=== PATIENT | female | born 1950 | race Caucasian/White ===

== ENCOUNTER 2017-11-10 03:58 | Inpatient (IN) | payer MEDICARE, BC, OTHER ==
[~2017-11-10] VITALS: Ht 170.2 cm; Wt 90.0 kg
[2017-11-10] VITALS (14 sets, daily range): BP systolic 100–132; BP diastolic 57–71; PULSE 83–172; RESP 18–24; TEMP 98.2–98.8; O2SAT 92–98
[2017-11-10] MEDS ORDERED: ADENOSINE IV SOLN 3 MG/ML 2 ML VIAL ONE (04:13)
[2017-11-10] MEDS ORDERED: ADENOSINE IV SOLN 3 MG/ML 2 ML VIAL IV PUSH ONE ×2 (04:15→04:30)
[2017-11-10] MEDS ORDERED: SODIUM CHLORIDE 0.9% FLUSH 10 ML FLUSH IV FLUSH PRN (04:15)
[2017-11-10] MEDS ORDERED: SODIUM CHLORID 0.9% 500 ML INJ 500 ML IV ONE ×2 (04:15→05:15)
[2017-11-10] MEDS ORDERED: METOPROLOL TARTRATE 5 MG/5 ML VIAL IV PUSH ONE ×2 (04:30→05:00)
--- NOTE | 2017-11-10 04:46 | PD ---
HPI Chief Complaint: Abdominal Pain Time Seen by Provider: 04:12 Travel History International Travel<30 days: No Contact w/Intl Traveler<30days: No Traveled to known affect area: No History of Present Illness HPI 67-year-old female presents to the emergency department by EMS transport from her long-term [facility] where she has been a resident since 03/02/17 for complaint of abdominal pain and identified to be hypotensive. Patient was also identified to be in an SVT with a rate sustained of 174-175. Patient has prior history of atrial fibrillation is currently on no anticoagulation. Patient recently started on antibiotic yesterday for chest x-ray which showed cardiomegaly with isolated right lower lobe infiltrate. Patient reports she thinks she might of had dark stool. Patient has had no fever. Patient positive tobacco use positive anemia atrial fibrillation chronic back pain COPD GERD gastric bypass headache hip replacement hypertension episodes of hypoxia migraine spinal stenosis bilateral lower extremity lower leg cellulitis muscle weakness bedbound and DNR. Patient reportedly received a DuoNeb at 3:10. Patient is unable to identify exacerbating or alleviating factors. PFSH Past Medical History Narrative Medical anemia depression sleep apnea spinal stenosis urinary incontinence atrial fibrillation chronic back pain COPD GERD gastric bypass headache hip replacement hypertension episodes of hypoxia migraine spinal stenosis bilateral lower extremity lower leg cellulitis muscle weakness bedbound knee surgery; tobacco use; nursing notes reviewed Social History Tobacco Use: Yes Allergies-Medications (Allergen,Severity, Reaction): Coded Allergies: Sulfa (Sulfonamide Antibiotics) (Verified Allergy, Unknown, 11/10/17) codeine (Verified Allergy, Unknown, 11/10/17) tetanus toxoid, adsorbed (Verified Allergy, Unknown, 11/10/17) Uncoded Allergies: vancomy (Allergy, Unknown, 11/10/17) Reported Meds & Prescriptions Reported Meds & Active Scripts Active Reported Fioricet (Dovbqeqsxa-Rqqseitdcybyi-Iwmcfqko) 50-300-40 Mg Cap 1 Cap PO Q4H PRN Oxycodone-Acetaminophen 5-325 mg Tab 1 Tab PO Q4H PRN Albuterol Neb (Albuterol Sulfate) 0.63 Mg/3 Ml Neb 0.63 Mg NEB Q4HR NEB PRN One Daily-Minerals (Multiple Vitamins W/ Minerals) 1 Tab 1 Tab PO DAILY Flexeril (Cyclobenzaprine HCl) 10 Mg Tab 10 Mg PO TID Review of Systems Except as stated in HPI: all other systems reviewed are Neg General / Constitutional: No: Fever HENT: No: Congestion Cardiovascular: Positive: Chest Pain or Discomfort, Palpitations, Tachycardia Respiratory: Positive: Shortness of Breath Gastrointestinal: Positive: Abdominal Pain, No: Nausea, Vomiting, Diarrhea Genitourinary: No: Dysuria Musculoskeletal: Positive: Myalgias, Arthralgias, No: Edema Skin: No Rash Neurologic: Positive: Weakness, No: Dizziness, Syncope, Focal Abnormalities, Coordination Problem Psychiatric: No: Anxiety Endocrine: No: Heat Intolerance Hematologic/Lymphatic: No: Easy Bruising Physical Exam Narrative GENERAL: Well-developed morbidly obese female laying supine on exam stretcher in no acute respiratory distress on supplemental oxygen 2 L/min nasal cannula O2 saturation 98% SKIN: Cool and dry. Pannus erythema with satellite erythematous macular papular rash and excoriation HEAD: Normocephalic. EYES: No scleral icterus. No injection or drainage. NECK: Supple, trachea midline. No JVD or lymphadenopathy. CARDIOVASCULAR: Increased regular rate and rhythm without murmurs, gallops, or rubs. RESPIRATORY: Breath sounds equal bilaterally. No accessory muscle use. GASTROINTESTINAL: Abdomen soft, non-tender except left lower quadrant, nondistended. MUSCULOSKELETAL: No cyanosis, or edema. BACK: Nontender without obvious deformity. No CVA tenderness. Data Data Last Documented VS Vital Signs Date Time Temp Pulse Resp B/P (MAP) Pulse Ox O2 Delivery O2 Flow Rate FiO2 11/10/17 05:57 122 19 103/70 (81) 92 Nasal Cannula 3.00 11/10/17 04:01 98.2 Orders Orders Adenosine Inj (Adenocard Inj) (11/10/17 04:13) Complete Blood Count With Diff (11/10/17 04:12) Comprehensive Metabolic Panel (11/10/17 04:12) Lipase (11/10/17 04:12) Prothrombin Time / Inr (Pt) (11/10/17 04:12) Act Partial Throm Time (Ptt) (11/10/17 04:12) Urinalysis - C+S If Indicated (11/10/17 04:12) Ct Abd/Pel W Iv Contrast(Rout) (11/10/17 04:12) Iv Access Insert/Monitor (11/10/17 04:12) Ecg Monitoring (11/10/17 04:12) Oximetry (11/10/17 04:12) Sodium Chloride 0.9% Flush (Ns Flush) (11/10/17 04:15) Electrocardiogram (11/10/17 04:12) Chest, Single Ap (11/10/17 04:12) Sodium Chlorid 0.9% 500 Ml Inj (Ns 500 M (11/10/17 04:15) Adenosine Inj (Adenocard Inj) (11/10/17 04:15) Magnesium (Mg) (11/10/17 04:12) Troponin I (11/10/17 04:12) Ckmb (Isoenzyme) Profile (11/10/17 04:12) Lactic Acid Sepsis Protocol (11/10/17 04:12) Blood Culture (11/10/17 04:12) Type And Screen (11/10/17 04:12) Urinary Catheter Insert/Apply (11/10/17 04:12) Adenosine Inj (Adenocard Inj) (11/10/17 04:30) Metoprolol Tartrate Inj (Lopressor Inj) (11/10/17 04:30) Metoprolol Tartrate Inj (Lopressor Inj) (11/10/17 05:00) Piperacil-Tazo 4.5 Gm Premix (Zosyn 4.5 (11/10/17 05:15) Sodium Chlorid 0.9% 500 Ml Inj (Ns 500 M (11/10/17 05:15) Ct Pulmonary Angiogram (11/10/17 ) Digoxin Inj (Lanoxin Inj) (11/10/17 05:30) Urine Culture (11/10/17 04:50) Admit Order (Ed Use Only) (11/10/17 ) Gyroscope Technician / Telemetry DANITZA.Q8H (11/10/17 05:53) Diet Npo (11/10/17 Breakfast) Activity Bed Rest (11/10/17 05:53) Notify Dr: Other (11/10/17 05:53) Iohexol 350 Inj (Omnipaque 350 Inj) (11/10/17 05:55) Labs Laboratory Tests Test 11/10/17 04:28 11/10/17 04:30 11/10/17 04:50 White Blood Count 4.5 TH/MM3 Red Blood Count 4.58 MIL/MM3 Hemoglobin 13.7 GM/DL Hematocrit 43.6 % Mean Corpuscular Volume 95.2 FL Mean Corpuscular Hemoglobin 30.0 PG Mean Corpuscular Hemoglobin Concent 31.5 % Red Cell Distribution Width 21.4 % Platelet Count 122 TH/MM3 Mean Platelet Volume 9.8 FL Neutrophils (%) (Auto) 75.3 % Lymphocytes (%) (Auto) 15.3 % Monocytes (%) (Auto) 8.6 % Eosinophils (%) (Auto) 0.2 % Basophils (%) (Auto) 0.6 % Neutrophils # (Auto) 3.4 TH/MM3 Lymphocytes # (Auto) 0.7 TH/MM3 Monocytes # (Auto) 0.4 TH/MM3 Eosinophils # (Auto) 0.0 TH/MM3 Basophils # (Auto) 0.0 TH/MM3 CBC Comment DIFF FINAL Differential Comment Prothrombin Time 10.8 SEC Prothromb Time International Ratio 1.1 RATIO Activated Partial Thromboplast Time 26.7 SEC Blood Urea Nitrogen 25 MG/DL Creatinine 0.47 MG/DL Random Glucose 93 MG/DL Total Protein 6.6 GM/DL Albumin 1.9 GM/DL Calcium Level 8.9 MG/DL Magnesium Level 1.8 MG/DL Alkaline Phosphatase 137 U/L Aspartate Amino Transf (AST/SGOT) 23 U/L Alanine Aminotransferase (ALT/SGPT) 24 U/L Total Bilirubin 0.7 MG/DL Sodium Level 144 MEQ/L Potassium Level 4.6 MEQ/L Chloride Level 102 MEQ/L Carbon Dioxide Level 35.0 MEQ/L Anion Gap 7 MEQ/L Estimat Glomerular Filtration Rate 131 ML/MIN Total Creatine Kinase 35 U/L Troponin I LESS THAN 0.02 NG/ML Lipase 26 U/L Lactic Acid Level 1.3 mmol/L Urine Color YELLOW Urine Turbidity HAZY Urine pH 7.0 Urine Specific [place] 1.026 Urine Protein 100 mg/dL Urine Glucose (UA) NEG mg/dL Urine Ketones 10 mg/dL Urine Occult Blood MOD Urine Nitrite POS Urine Bilirubin NEG Urine Urobilinogen 4.0 MG/DL Urine Leukocyte Esterase LARGE Urine RBC 70 /hpf Urine WBC /hpf Urine WBC Clumps RARE Urine Squamous Epithelial Cells <1 /hpf Urine Transitional Epithelial Cells 1 /hpf Urine Renal Epithelial Cells 1 /hpf Urine Bacteria MANY /hpf Urine Hyaline Casts 7 /lpf Urine Mucus FEW /lpf Microscopic Urinalysis Comment CATH-CULTURE IND MDM Medical Decision Making Medical Screen Exam Complete: Yes Emergency Medical Condition: Yes Medical Record Reviewed: Yes Interpretation(s) EKG: SVT rate 173 intraventricular conduction delay no acute ST elevation or injury pattern noted During Adenocard administration patient went into atrial flutter with variable block Urinalysis: Innumerable white blood cells many bacteria positive nitrites positive leukocyte esterase positive blood; cath specimen culture indicated patient is already received Zosyn 4.5 g IV piggyback 1 dose Lactic acid 1.3, not elevated Last Impressions Chest X-Ray 11/10/17 0412 Signed Impressions: CONCLUSION: Cardiomegaly with mild basilar airspace disease, most characteristic of atelect asis. CBC & BMP Diagram 11/10/17 04:28 Total Protein 6.6, Albumin 1.9 L, Calcium Level 8.9, Magnesium Level 1.8, Alkaline Phosphatase 137 H, Aspartate Amino Transf (AST/SGOT) 23, Alanine Aminotransferase (ALT/SGPT) 24, Total Bilirubin 0.7 Vital Signs Date Time Temp Pulse Resp B/P (MAP) Pulse Ox O2 Delivery O2 Flow Rate FiO2 11/10/17 05:01 93 Nasal Cannula 3.00 11/10/17 04:59 137 19 132/66 (88) 98 Nasal Cannula 3.00 11/10/17 04:01 98.2 172 20 119/65 (83) Differential Diagnosis SVT a flutter with 2-1 block sepsis ACS SD CHF COPD ischemic bowel ischemic colitis anemia UTI tinea cruris venous stasis disease PE Narrative Course Patient placed on hall monitor with continuous pulse oximetry and supplemental oxygen IV access obtained patient identified to be in SVT with regular rate of 173 narrow complex, suspicious for atrial flutter with 2-1 block however unresponsive to vagal maneuvers and subsequently administered Adenocard to determine underlying rhythm 6 mg Adenocard rapid push was no variation in rate 12 mg Adenocard rapid flow showed patient to be an atrial flutter with return of rate to 173 maintaining blood pressure 106 systolic patient given beta-ana metoprolol 5 mg IV slow push currently takes Coreg daily. If patient should drop her pressure may require rate control through cardioversion. Cardiac enzymes CK total troponin I are not elevated At 5:25 AM long-term identifies acute change tonight was saturations dropped to 65% patient was given updraft treatment and was noted to be hypotensive. Upon EMS arrival was identified she was also an narrow complex tachycardia. Patient received 500 cc bolus in route from the long-term via EMS. Upon patient's arrival she received an additional 500 cc bolus of normal saline received 6 mg and 12 mg of Adenocard which identified her to be an a flutter with variable rate. After words she received a one-time dose of Lopressor 5 mg IV which slowed her rate to 119-130 initially was able to tolerate her pressure but it did trend downward therefore additional 500 cc bolus was administered digoxin 0.25 mg IV was administered an additional dose of Lopressor 5 mg at 2.5 mg increments was ordered and administered. Due to information from nursing patient's O2 saturation on 2 L dropped to 65% with patient being bedridden and morbidly obese with minimal activity CT pulmonary angiogram has been ordered as well as CT abdomen and pelvis. Critical Care Narrative Aggregate critical care time was 40 minutes. Time to perform other separately billable procedures was not included in the critical care time. My time did not include minutes spent treating any other patients simultaneously or on activities that did not directly contribute to the patient's treatment. The services I provided to this patient were to treat and/or prevent clinically significant deterioration that could result in: Arrhythmia, septic shock, I provided critical care services requiring my management, as noted below: Chart data review, documentation time, medication orders and management, vital sign assessments/reviewing monitor data, ordering and reviewing lab tests, ordering and interpreting/reviewing x-rays and diagnostic studies, care of the patient and discussion of the patient with the admitting physicians. Physician Communication Physician Communication call placed to Dr Huber for admission --admit to ICU with motorcycle service technician consult --discussed with Dr Wright --- will see in the ICU Diagnosis Primary Impression: Atrial flutter with rapid ventricular response Additional Impressions: UTI (urinary tract infection) History of COPD History of congestive heart failure Admitting Information Admitting Physician Requests: Admit Angie Nicholas MD Nov 10, 2017 04:46
--- NOTE | 2017-11-10 04:51 | RADRPT ---
EXAM DATE: 11/10/2017 4:47 AM EDT AGE/SEX: 67 years / Female INDICATIONS: Shortness of breath. CLINICAL DATA: This is the patient's initial encounter. Patient reports that signs and symptoms have been present for 1 day and indicates a pain score of Nonresponsive. MEDICAL/SURGICAL HISTORY: . Unobtainable. . Unobtainable. COMPARISON: No prior exams available for comparison. FINDINGS: There is cardiomegaly. Mild basilar airspace disease which may represent atelectasis. No significant effusion. No pneumothorax. CONCLUSION: Cardiomegaly with mild basilar airspace disease, most characteristic of atelectasis. Electronically signed by: Ced Cason MD 11/10/2017 4:49 AM EDT
[2017-11-10 04:52] LABS: AUTOMATED NEUTROPHIL # 3.4 TH/MM3 (1.8-7.7); BASOPHIL % 0.6 % (0.0-2.0); EOSINOPHIL % 0.2 % (0.0-4.0); HEMATOCRIT 43.6 % (35.0-46.0); HEMOGLOBIN 13.7 GM/DL (11.6-15.3); LYMPH % 15.3 % (9.0-44.0); LYMPHOCYTE # 0.7 TH/MM3 (1.0-4.8); MEAN CELL VOLUME 95.2 FL (80.0-100.0); MEAN CORPUSCULAR HGB CONC 31.5 % (32.0-36.0); MEAN PLATELET VOLUME 9.8 FL (7.0-11.0); MONO % 8.6 % (0.0-8.0); MONOCYTE # 0.4 TH/MM3 (0-0.9); NEUT % 75.3 % (16.0-70.0); PLATELET COUNT 122 TH/MM3 (150-450); RED BLOOD COUNT 4.58 MIL/MM3 (4.00-5.30); RED CELL DISTRIBUTION WIDTH 21.4 % (11.6-17.2); WHITE BLOOD COUNT 4.5 TH/MM3 (4.0-11.0)
[2017-11-10 05:03] LABS: INTERNATIONAL NORMALIZED RATIO 1.1 RATIO; PROTHROMBIN TIME - PATIENT 10.8 SEC (9.8-11.6)
[2017-11-10 05:10] LABS: ALBUMIN 1.9 GM/DL (3.4-5.0); ALT (GPT) 24 U/L (10-53); AST (GOT) 23 U/L (15-37); BLOOD UREA NITROGEN 25 MG/DL (7-18); CALCIUM 8.9 MG/DL (8.5-10.1); CHLORIDE 102 MEQ/L (98-107); CREATININE 0.47 MG/DL (0.50-1.00); GLOMERULAR FILTRATION RATE 131 ML/MIN (>89); GLUCOSE,RANDOM 93 MG/DL (74-106); MAGNESIUM 1.8 MG/DL (1.5-2.5); SODIUM (NA) 144 MEQ/L (136-145)
[2017-11-10 05:15] LABS: ALKALINE PHOSPHATASE 137 U/L (45-117); TOTAL BILIRUBIN ADULT 0.7 MG/DL (0.2-1.0); TOTAL PROTEIN 6.6 GM/DL (6.4-8.2); TROPONIN I LESS THAN 0.02 NG/ML (0.02-0.05)
[2017-11-10] MEDS ORDERED: PIPERACIL-TAZO 4.5 GM PREMIX 100 ML IV ONE (05:15)
[2017-11-10 05:24] LABS: BACTERIA, URINE MANY /hpf; BILIRUBIN, URINE NEG (NEG); BLOOD, URINE MOD (NEG); GLUCOSE,URINE NEG (NEG); HYALINE CAST, URINE 7 /lpf (RARE); KETONE, URINE 10 mg/dL (NEG); MUCUS URINE FEW /lpf (OCC); NITRITE,URINE POS (NEG); RENAL EPITHELIAL CELLS 1 /hpf; SQUAMOUS EPITHELIAL CELL URINE <1 /hpf (0-5); TRANSITIONAL EPI CELLS, URINE 1 /hpf; URINE COLOR YELLOW (YELLW/STRAW); URINE LEUKOCYTE ESTERASE LARGE (NEG); WHITE BLOOD CELL CLUMPS RARE
[2017-11-10] MEDS ORDERED: DIGOXIN 0.5 MG/2 ML VIAL IV PUSH ONE ×2 (05:30→08:30)
[2017-11-10] MEDS ORDERED: CYCL10TA PO (05:39)
[2017-11-10] MEDS ORDERED: ONETAB22 PO (05:40)
[2017-11-10] MEDS ORDERED: ALBU0.63 NEB (05:40)
[2017-11-10] MEDS ORDERED: OXYC1TAB63 PO (05:41)
[2017-11-10] MEDS ORDERED: BUTA1CAP PO (05:41)
[2017-11-10] MEDS ORDERED: IOHEXOL 350 MG/ML 10 ML VIAL (for RAD DIAG) IVCONTRAST ONE (05:55)
--- NOTE | 2017-11-10 06:08 | RADRPT ---
EXAM DATE: 11/10/2017 5:52 AM EDT AGE/SEX: 67 years / Female INDICATIONS: Shortness of breath, tachycardia. CLINICAL DATA: This is the patient's initial encounter. Patient reports that signs and symptoms have been present for 1 day and indicates a pain score of 0/10. MEDICAL/SURGICAL HISTORY: Congestive heart failure. Chronic obstructive pulmonary disease. Gastric bypass. RADIATION DOSE: 8.77 CTDI (mGy) COMPARISON: No prior exams available for comparison. TECHNIQUE: Volumetric scanning was performed using a multi-row detector CT scanner during bolus infu arcelia of 100 ml Omnipaque 350 (iohexol) nonionic water-soluble contrast as a cumulative dose for mult iple exams. The data was post processed with a variety of visualization algorithms including full vol ume maximum intensity projection and sliding thin slab reformation. Using automated exposure control and adjustment of the mA and/or kV according to patient size, radiation dose was kept as low as reas onably achievable to obtain optimal diagnostic quality images. FINDINGS: No filling defects to suggest pulmonary embolus. There is subsegmental basilar airspace disease with small left effusion. Cardiomegaly. Pericardial effusion measuring up to about 2.8 cm in thickness on the left side posteriorly. No pneumothorax. Moderate emphysema in the upper lungs, centrilobular. Bor derline enlarged mediastinal lymph nodes. See abdomen CT for findings below the diaphragm. CONCLUSION: 1. Negative for pulmonary embolus. 2. Moderate sized pericardial effusion and small left effusion. 3. Subsegmental basilar airspace disease. Electronically signed by: Ced Cason MD 11/10/2017 6:06 AM EDT
--- NOTE | 2017-11-10 06:12 | RADRPT ---
EXAM DATE: 11/10/2017 5:54 AM EDT AGE/SEX: 67 years / Female INDICATIONS: Abdominal pain, blood in stool. CLINICAL DATA: This is the patient's initial encounter. Patient reports that signs and symptoms have been present for 1 day and indicates a pain score of 5/10. MEDICAL/SURGICAL HISTORY: Congestive heart failure. Chronic obstructive pulmonary disease. Ga stroesophageal reflux disease. Gastric bypass. Left hip replacement. ORAL CONTRAST: No oral contrast ingested. RADIATION DOSE: 18.73 CTDI (mGy) COMPARISON: No prior exams available for comparison. TECHNIQUE: Multiple contiguous axial images were obtained through the abdomen and pelvis following b olus infusion of 100 ml Omnipaque 350 (iohexol) nonionic water-soluble contrast as a cumulative dos e for multiple exams. No oral contrast ingested. Using automated exposure control and adjustment of the mA and/or kV according to patient size, the radiation dose was kept as low as reasonably achievab le to obtain optimal diagnostic quality images. FINDINGS: Moderate sized pericardial effusion present with small left effusion and subsegmental airspace diseas e at the lung bases. There is moderate anasarca. Mild fatty liver. Spleen, adrenals, kidneys and pancreas demonstrate no acute findings. Multiple smal l gallstones in the gallbladder without biliary ductal dilatation. No significant free fluid. No bowel obstruction. No free air. Previous left hip replacement. Mild con stipation. Advanced degenerative change in the lumbar spine with a mild levoscoliosis. CONCLUSION: 1. Moderate pericardial effusion and small left effusion with subsegmental basilar airspace disease. 2. Moderate anasarca. 3. Postoperative gastric bypass surgery and left hip replacement. 4. Multiple small gallstones. 5. Mild constipation. No bowel obstruction. Electronically signed by: Ced Cason MD 11/10/2017 6:10 AM EDT
[2017-11-10] MEDS ORDERED: LOTR15T TOPICAL (06:17)
[2017-11-10] MEDS ORDERED: OXYC1TAB36 PO (06:17)
[2017-11-10] MEDS ORDERED: ASPI1TAB93 (06:17)
[2017-11-10] MEDS ORDERED: VENTAER INH ×2 (06:18→06:22)
[2017-11-10] MEDS ORDERED: RESP: ALBUTEROL 0.63 MG/3 ML NEB (PRN) NEB (06:45)
--- NOTE | 2017-11-10 09:33 | ECHRPT ---
Indication: MOD CORY EFF BORDERLINE BP CONCLUSIONS The left ventricle is not well visualized. Normal left ventricular size. Mild concentric left ventricular hypertrophy. The left ventricular systolic function is mildly reduced with an estimated ejection fraction in the range of 45- 50%. The right atrial size is mildly dilated. The interatrial septum not well visualized. The aortic root and proximal ascending aorta are not well visualized. The mitral valve is not well visualized. Trace mitral valve regurgitation. No mitral valve stenosis. Aortic valve sclerosis is present. No aortic valve regurgitation. No aortic valve stenosis. There is trace tricuspid valve regurgitation. The estimated pulmonary arterial pressure is 47 mmHg. Trivial pulmonary valve regurgitation. There is a ipwbr-ci-caxsmray sized posterior and lateral, partially loculated pericardial effusion p resent. A small left sided pleural effusion is noted. No hemodynamically significant echocardiographic features were observed (no pre-tamponade physiology). BP: / HR: Rhythm: MEASUREMENTS (Male / Female) Normal Values Technical Quality: 2D ECHO LV Diastolic Diameter PLAX 4.7 cm 4.2 - 5.9 / 3.9 - 5.3 cm LV Systolic Diameter PLAX 3.9 cm IVS Diastolic Thickness 1.5 cm 0.6 - 1.0 / 0.6 - 0.9 cm LVPW Diastolic Thickness 1.0 cm 0.6 - 1.0 / 0.6 - 0.9 cm LV Relative Wall Thickness 0.5 DOPPLER AV Peak Velocity 269.0 cm/s AV Peak Gradient 28.9 mmHg LVOT Peak Velocity 108.0 cm/s LVOT Peak Gradient 4.7 mmHg Mitral E Point Velocity 134.0 cm/s TR Peak Velocity 324.0 cm/s TR Peak Gradient 42.0 mmHg FINDINGS LEFT VENTRICLE The left ventricle is not well visualized. Normal left ventricular size. Mild concentric left ventricular hypertrophy. The left ventricular systolic function is mildly reduced with an estimated ejection fraction in the range of 45- 50%. RIGHT VENTRICLE Normal right ventricular size and systolic function. LEFT ATRIUM The left atrial size is normal. RIGHT ATRIUM The right atrial size is mildly dilated. ATRIAL SEPTUM Normal atrial septal thickness without atrial level shunting by limited color doppler interrogation. The interatrial septum not well visualized. AORTA The aortic root and proximal ascending aorta are normal in size on limited imaging. The aortic root and proximal ascending aorta are not well visualized. MITRAL VALVE The mitral valve is not well visualized. Structurally normal mitral valve. Trace mitral valve regurgitation. No mitral valve stenosis. AORTIC VALVE Trileaflet aortic valve. Aortic valve sclerosis is present. No aortic valve regurgitation. No aortic valve stenosis. TRICUSPID VALVE There is trace tricuspid valve regurgitation. The estimated pulmonary arterial pressure is 47 mmHg. PULMONARY VALVE Trivial pulmonary valve regurgitation. VESSELS The inferior vena cava is normal in size. PERICARDIUM There is a [id number] sized posterior and lateral, partially loculated pericardial effusion p resent. A small left sided pleural effusion is noted. No hemodynamically significant echocardiographic features were observed (no pre-tamponade physiology). Elliot Bella MD, FACC (Electronically Signed) Final Date:10 November 2017 09:31
--- NOTE | 2017-11-10 13:39 | PD.CONS ---
[facility] Service Critical Care Medicine Consult Requested By Primary Care Physician Steff Milan DO History of Present Illness 67-year-old female presents to the emergency department by EMS transport from her half-way [facility] where she has been a resident since 03/02/17 for complaint of abdominal pain and identified to be hypotensive. Patient was also identified to be in an SVT with a rate sustained of 174-175. Patient has prior history of atrial fibrillation is currently on no anticoagulation. Patient recently started on antibiotic yesterday for chest x-ray which showed cardiomegaly with isolated right lower lobe infiltrate. Patient reports she thinks she might of had dark stool. Patient has had no fever. Patient positive tobacco use positive anemia atrial fibrillation chronic back pain COPD GERD gastric bypass headache hip replacement hypertension episodes of hypoxia migraine spinal stenosis bilateral lower extremity lower leg cellulitis muscle weakness bedbound and DNR. Patient reportedly received a DuoNeb at 3:10. Patient is unable to identify exacerbating or alleviating factors. In the ER she was noted to have a flutter with borderline blood pressure. She received IV Lopressor as well as 1.5 L normal saline bolus. Patient was admitted to the ICU by Dr. Huber and critical care consult was requested. CT chest done in the ER showed a moderate pericardial effusion and ascites. I ordered a stat 2D echo which I reviewed personally while it was being done. No tamponade physiology observed with good contractility of RV and LV. Cardiology consult requested for further evaluation for arrhythmia and pericardial effusion. At the time of my evaluation patient had minimal shortness of breath though she stated she was already feeling better. She denied any chest pain abdominal pain nausea vomiting diarrhea melena or rectal bleeding. She reiterated that she did not want intubation or CPR if she worsened clinically. She stated that in case she was not able to make her own decisions her brother would be making healthcare decisions. PFSH Past Medical History Narrative Medical anemia depression sleep apnea spinal stenosis urinary incontinence atrial fibrillation chronic back pain COPD GERD gastric bypass headache hip replacement hypertension episodes of hypoxia migraine spinal stenosis bilateral lower extremity lower leg cellulitis muscle weakness bedbound knee surgery; tobacco use; nursing notes reviewed Social History Tobacco Use: Yes Allergies-Medications (Allergen,Severity, Reaction): Coded Allergies: Sulfa (Sulfonamide Antibiotics) (Verified Allergy, Unknown, 11/10/17) codeine (Verified Allergy, Unknown, 11/10/17) tetanus toxoid, adsorbed (Verified Allergy, Unknown, 11/10/17) Uncoded Allergies: vancomy (Allergy, Unknown, 11/10/17) Reported Meds & Prescriptions Reported Meds & Active Scripts Active Reported Fioricet (Gsurtzzzii-Brbfpuuesxjxa-Jqcasbru) 50-300-40 Mg Cap 1 Cap PO Q4H PRN Oxycodone-Acetaminophen 5-325 mg Tab 1 Tab PO Q4H PRN Albuterol Neb (Albuterol Sulfate) 0.63 Mg/3 Ml Neb 0.63 Mg NEB Q4HR NEB PRN One Daily-Minerals (Multiple Vitamins W/ Minerals) 1 Tab 1 Tab PO DAILY Flexeril (Cyclobenzaprine HCl) 10 Mg Tab 10 Mg PO TID Review of Systems Except as stated in HPI: all other systems reviewed are Neg General / Constitutional: No: Fever HENT: No: Congestion Cardiovascular: Positive: Chest Pain or Discomfort, Palpitations, Tachycardia Respiratory: Positive: Shortness of Breath Gastrointestinal: Positive: Abdominal Pain, No: Nausea, Vomiting, Diarrhea Genitourinary: No: Dysuria Musculoskeletal: Positive: Myalgias, Arthralgias, No: Edema Skin: No Rash Neurologic: Positive: Weakness, No: Dizziness, Syncope, Focal Abnormalities, Coordination Problem Psychiatric: No: Anxiety Endocrine: No: Heat Intolerance Hematologic/Lymphatic: No: Easy Bruising Past Family Social History Allergies: Coded Allergies: Sulfa (Sulfonamide Antibiotics) (Verified Allergy, Unknown, 11/10/17) codeine (Verified Allergy, Unknown, 11/10/17) tetanus toxoid, adsorbed (Verified Allergy, Unknown, 11/10/17) Uncoded Allergies: vancomy (Allergy, Unknown, 11/10/17) Physical Exam Vital Signs Vital Signs Date Time Temp Pulse Resp B/P (MAP) Pulse Ox O2 Delivery O2 Flow Rate FiO2 11/10/17 12:00 92 11/10/17 10:00 94 11/10/17 08:00 97 11/10/17 07:10 11/10/17 06:41 114 18 100/63 (75) 98 Room Air 3.00 11/10/17 06:04 114 20 108/71 (83) 94 Nasal Cannula 3.00 11/10/17 05:57 122 19 103/70 (81) 92 Nasal Cannula 3.00 11/10/17 05:01 93 Nasal Cannula 3.00 11/10/17 04:59 137 19 132/66 (88) 98 Nasal Cannula 3.00 11/10/17 04:01 98.2 172 20 119/65 (83) Physical Exam Narrative GENERAL: Well-developed morbidly obese female laying in bed on supplemental oxygen 2 L/min nasal cannula O2 saturation 98% SKIN: Cool and dry. Pannus erythema with satellite erythematous macular papular rash and excoriation HEAD: Normocephalic. EYES: No scleral icterus. No injection or drainage. NECK: Supple, trachea midline. No JVD or lymphadenopathy. CARDIOVASCULAR: Increased regular rate and rhythm without murmurs, gallops, or rubs. RESPIRATORY: Air entry decreased bilaterally at bases, scattered rhonchi, no wheezing. GASTROINTESTINAL: Abdomen soft, non-tender except left lower quadrant, nondistended. MUSCULOSKELETAL: No cyanosis, or edema. BACK: Nontender without obvious deformity. No CVA tenderness. Laboratory Laboratory Tests Test 11/10/17 04:28 11/10/17 04:30 11/10/17 04:50 White Blood Count 4.5 Red Blood Count 4.58 Hemoglobin 13.7 Hematocrit 43.6 Mean Corpuscular Volume 95.2 Mean Corpuscular Hemoglobin 30.0 Mean Corpuscular Hemoglobin Concent 31.5 Red Cell Distribution Width 21.4 Platelet Count 122 Mean Platelet Volume 9.8 Neutrophils (%) (Auto) 75.3 Lymphocytes (%) (Auto) 15.3 Monocytes (%) (Auto) 8.6 Eosinophils (%) (Auto) 0.2 Basophils (%) (Auto) 0.6 Neutrophils # (Auto) 3.4 Lymphocytes # (Auto) 0.7 Monocytes # (Auto) 0.4 Eosinophils # (Auto) 0.0 Basophils # (Auto) 0.0 CBC Comment DIFF FINAL Differential Comment Prothrombin Time 10.8 Prothromb Time International Ratio 1.1 Activated Partial Thromboplast Time 26.7 Blood Urea Nitrogen 25 Creatinine 0.47 Random Glucose 93 Total Protein 6.6 Albumin 1.9 Calcium Level 8.9 Magnesium Level 1.8 Alkaline Phosphatase 137 Aspartate Amino Transf (AST/SGOT) 23 Alanine Aminotransferase (ALT/SGPT) 24 Total Bilirubin 0.7 Sodium Level 144 Potassium Level 4.6 Chloride Level 102 Carbon Dioxide Level 35.0 Anion Gap 7 Estimat Glomerular Filtration Rate 131 Total Creatine Kinase 35 Troponin I LESS THAN 0.02 B-Type Natriuretic Peptide 142 Lipase 26 Thyroid Stimulating Hormone 3rd Gen 2.210 Lactic Acid Level 1.3 Urine Color YELLOW Urine Turbidity HAZY Urine pH 7.0 Urine Specific [place] 1.026 Urine Protein 100 Urine Glucose (UA) NEG Urine Ketones 10 Urine Occult Blood MOD Urine Nitrite POS Urine Bilirubin NEG Urine Urobilinogen 4.0 Urine Leukocyte Esterase LARGE Urine RBC 70 Urine WBC Urine WBC Clumps RARE Urine Squamous Epithelial Cells <1 Urine Transitional Epithelial Cells 1 Urine Renal Epithelial Cells 1 Urine Bacteria MANY Urine Hyaline Casts 7 Urine Mucus FEW Microscopic Urinalysis Comment CATH-CULTURE IND Date/Time Source Procedure Growth Status 11/10/17 04:30 Blood Peripheral Aerobic Blood Culture Pending Received 11/10/17 04:30 Blood Peripheral Anaerobic Blood Culture Pending Received 11/10/17 04:50 Urine Catheterized Urine Urine Culture Pending Received Result Diagram: 11/10/1742711/10/17427 Imaging Last Impressions Chest X-Ray 11/10/17411 Signed Impressions: CONCLUSION: Cardiomegaly with mild basilar airspace disease, most characteristic of atelect asis. Abdomen/Pelvis CT 11/10/17 041 Signed Impressions: CONCLUSION: 1. Moderate pericardial effusion and small left effusion with subsegmental bas ilar airspace disease. 2. Moderate anasarca. 3. Postoperative gastric bypass surgery and left hip replacement. 4. Multiple small gallstones. 5. Mild constipation. No bowel obstruction. CT Angiography 11/10/17 0000 Signed Impressions: CONCLUSION: 1. Negative for pulmonary embolus. 2. Moderate sized pericardial effusion and small left effusion. 3. Subsegmental basilar airspace disease. Assessment and Plan Assessment and Plan SVT/A flutter with RVR Hypotension Moderate pericardial effusion Ascites Acute respiratory failure Morbid obesity anemia depression sleep apnea spinal stenosis urinary incontinence h/o atrial fibrillation chronic back pain COPD GERD h/o gastric bypass h/o headache/ migraines h/o hypertension Spinal stenosis Plan: Admitted to ICU Received digoxin 0.5 mg IV 1 dose. Will use beta-ana if blood pressure tolerates. 2D echo does not show tamponade physiology and shows a moderate pericardial effusion. Cardiology consult requested for further evaluation. Diurese as tolerated Hold antihypertensives Patient reaffirms DNR status. Further medical management per Dr. Huber. Critical care will be available as needed. Earl Wright MD Nov 10, 2017 13:39
--- NOTE | 2017-11-10 14:27 | MB ---
cc: Danielle Guevara MD DATE: 11/10/2017 HISTORY OF PRESENT ILLNESS: Ms. Estrada is a 67-year-old white female, who was brought from [facility] due to abdominal pain. She was found to be in atrial flutter with rapid ventricular response at 173 beats per minute. She has previous history of atrial fibrillation. Her heart rate has been now better controlled. She has mild shortness of breath, no chest pain and currently denies any abdominal pain. She denies any dizziness, lightheadedness or palpitations. PAST MEDICAL HISTORY: Positive for atrial fibrillation, anemia, depression, sleep apnea, spinal stenosis, urinary incontinence, chronic back pain, COPD, gastroesophageal reflux disease, gastric bypass, history of headaches, hip replacement, hypertension, migraine, lower extremity cellulitis, knee surgery. MEDICATIONS: 1. Flexeril. 2. Multivitamin. 3. Albuterol p.r.n. 4. Oxycodone/acetaminophen p.r.n. 5. Fioricet p.r.n. ALLERGIES: SULFA. CODEINE. TETANUS TOXOID. VANCOMYCIN. SOCIAL HISTORY: The patient is a smoker. She does not drink alcohol. She is bedbound. FAMILY HISTORY: Negative for heart disease. REVIEW OF SYSTEMS: Otherwise negative. PHYSICAL EXAMINATION: VITAL SIGNS: Blood pressure 100/63, pulse 92 and regular. HEENT: Negative. 2+ carotid upstrokes, no bruits. LUNGS: Clear. HEART: Irregular with no murmur, gallop or rub. ABDOMEN: Soft. No bruits. EXTREMITIES: Trace edema, 1+ pulses. NEUROLOGIC: Grossly nonfocal. EKG was reviewed and showed atrial flutter with a 2:1 block and rapid ventricular response. LABORATORY DATA: Hemoglobin 13.7. Potassium 4.6, creatinine 0.5. Troponin less than 0.02. BNP 142. IMAGING STUDIES: CT angiography was negative for pulmonary embolism and showed moderate-sized pericardial effusion. Echocardiogram showed a small to moderate-sized posterior and lateral partially loculated pericardial effusion, no evidence of hemodynamic compromise, mild left ventricular dysfunction with an ejection fraction of 45% to 50%, mild left ventricular hypertrophy, and mild pulmonary hypertension. Telemetry now shows atrial flutter with variable block and a better controlled ventricular response. DIAGNOSES: 1. Atrial flutter with rapid ventricular response. 2. Hypotension. 3. Small to moderate-sized pericardial effusion with no evidence of hemodynamic compromise. 4. Ascites. 5. Acute respiratory failure. 6. Anemia. 7. History of atrial fibrillation. 8. Chronic obstructive pulmonary disease. 9. Status post gastric bypass. 10. History of hypertension. 11. Smoking. DISPOSITION: Ms. Francois was found to have atrial flutter with rapid ventricular response. Her heart rate is now better controlled with digoxin. I recommend to continue digoxin and increase the dose if necessary to keep the ventricular response below 110. The patient will be monitored in the intensive care unit. Her echocardiogram showed small to moderate-sized pericardial effusion, but no evidence of hemodynamic compromise. Recommend to continue diuresis, closely monitoring her renal function. I will follow her for Cardiology during her hospitalization. MD MANDA Morrell/KEN , 01:49 PM , 02:26 PM ARIS
[2017-11-10] MEDS: BETAMETHASONE/CLOTRIMAZOLE CREAM 15 GM TOPICAL SCH ×2 (14:56→19:54)
--- NOTE | 2017-11-10 15:15 | EKG ---
Date Performed: 11/10/2017 Time Performed: 04:10:03 PTAGE: 67 years EKG: UNCERTAIN REGULAR RHYTHM INTRAVENTRICULAR CONDUCTION DELAY ABNORMAL ECG NO PREVIOUS TRACING DOCTOR: Cherie Diaz Interpretating Date/Time 11/10/2017 15:14:19
[2017-11-10] MEDS ORDERED: ESMOLOL HCL 100 MG/10 ML VIAL IV PUSH PRN (16:00)
[2017-11-10] MEDS: ESMOLOL DRIP INJ PREMIX 250 ML IV PRN ×2 (16:09→23:48)
--- NOTE | 2017-11-10 19:20 | HHI.HP ---
History of Present Illness Primary Care Physician Steff Milan DO Admission Diagnosis atrial flutter w/ RVR; UTI; h/o copd; h/o chf Diagnoses: History of Present Illness pt admitted from [facility] with rapid heartrate and hypoxia pulse ox 70-80 also some complaint of dark blood per vagina/rectum with abdominal pain Review of Systems Constitutional: COMPLAINS OF: Fatigue Respiratory: COMPLAINS OF: Shortness of breath Cardiovascular: COMPLAINS OF: Palpitations Gastrointestinal: COMPLAINS OF: Abdominal pain, Black stools Musculoskeletal: COMPLAINS OF: Muscle aches Past Family Social History Allergies: Coded Allergies: Sulfa (Sulfonamide Antibiotics) (Verified Allergy, Unknown, 11/10/17) codeine (Verified Allergy, Unknown, 11/10/17) tetanus toxoid, adsorbed (Verified Allergy, Unknown, 11/10/17) Uncoded Allergies: vancomy (Allergy, Unknown, 11/10/17) Past Medical History obesity celluitis cad Past Surgical History gastric bypass Reported Medications Reported Meds & Active Scripts Active Reported Ventolin Hfa 18 GM Inh (Albuterol Sulfate) 90 Mcg/Act Aer 2 Puff INH Q4-6H PRN Ventolin Hfa 18 GM Inh (Albuterol Sulfate) 90 Mcg/Act Aer 1 Puff INH Q4H PRN Lotrisone Topical (Betamethasone/Clotrimazole) 1-0.05% Cream 1 Applic TOPICAL BID Oxycodone-Acetaminophen 10-325 mg Tab 1 Tab PO Q6H PRN Fioricet (Sacvyknzom-Rbctutaabjuzc-Dponkrzv) 50-300-40 Mg Cap 1 Cap PO Q4H PRN Albuterol Neb (Albuterol Sulfate) 0.63 Mg/3 Ml Neb 0.63 Mg NEB Q4HR NEB PRN One Daily-Minerals (Multiple Vitamins W/ Minerals) 1 Tab 1 Tab PO DAILY Active Ordered Medications Inpatient Medications Adenosine (Adenocard Inj) 12 mg ONCE ONCE IV PUSH Last administered on at 06:13; Start 11/10/17 at 04:30; Stop 11/10/17 at 04:31; Status DC Albuterol Sulfate (Albuterol Neb) 0.63 mg Q6HR NEB PRN NEB SHORTNESS OF BREATH ; Start 11/10/17 at 13:45 Betamethasone/ Clotrimazole (Lotrisone Cream) 1 applic BID TOPICAL Last administered on 11/10/17at 14:56; Start 11/10/17 at 09:00 Digoxin (Lanoxin Inj) 0.5 mg ONCE ONCE IV PUSH Last administered on 11/10/17at 08:30; Start 11/10/17 at 08:30; Stop 11/10/17 at 08:37; Status DC Digoxin (Lanoxin) 0.125 mg DAILY PO ; Start 11/11/17 at 09:00 Esmolol HCl (Brevibloc Bolus Inj) 20 mg BOLUS PRN IV PUSH Rebolus Last administered on 11/10/17at 16:41; Start 11/10/17 at 16:00 Esmolol HCl/ Sodium Chloride 250 ml @ 30.3 mls/hr TITRATE PRN IV Blood Pressure Management Last administered on 11/10/17at 16:09; Start 11/10/17 at 15:45 Metoprolol Tartrate (Lopressor Inj) 5 mg ONCE ONCE IV PUSH ; Start 11/10/17 at 05:00; Stop 11/10/17 at 05:01; Status DC Oxycodone/ Acetaminophen (Percocet 10-325 Mg) 1 tab Q6H PRN PO PAIN; Start 11/10 at 06:45 Piperacillin Sod/ Tazobactam Sod 100 ml @ 200 mls/hr ONCE ONCE IV Last administered on 11/10/17at 05:51; Start 11/10/17 at 05:15; Stop 11/10/17 at 05:44; Status DC Sodium Chloride 500 ml @ 500 mls/hr BOLUS ONCE IV Last administered on at 05:15; Start 11/10/17 at 05:15; Stop 11/10/17 at 06:14; Status DC Sodium Chloride (NS Flush) 2 ml UNSCH PRN IV FLUSH FLUSH AFTER USING IV ACCESS ; Start 11/10/17 at 04:15 Family History cardiac disease Social History non smoker non drinker Physical Exam Vital Signs Vital Signs Date Time Temp Pulse Resp B/P (MAP) Pulse Ox O2 Delivery O2 Flow Rate FiO2 11/10/17 18:57 86 105/58 11/10/17 18:33 91 122/59 11/10/17 18:05 118 127/72 11/10/17 18:00 113 11/10/17 16:09 171 125/61 11/10/17 16:00 170 11/10/17 14:00 110 11/10/17 12:00 92 11/10/17 10:00 94 11/10/17 08:00 97 11/10/17 07:10 11/10/17 06:41 114 18 100/63 (75) 98 Room Air 3.00 11/10/17 06:04 114 20 108/71 (83) 94 Nasal Cannula 3.00 11/10/17 05:57 122 19 103/70 (81) 92 Nasal Cannula 3.00 11/10/17 05:01 93 Nasal Cannula 3.00 11/10/17 04:59 137 19 132/66 (88) 98 Nasal Cannula 3.00 11/10/17 04:01 98.2 172 20 119/65 (83) Physical Exam GENERAL: This is a well-nourished, well-developed obese patient, in no apparent distress. SKIN: No rashes, ecchymoses or lesions. Cool and dry. HEAD: Atraumatic. Normocephalic. No temporal or scalp tenderness. EYES: Pupils equal round and reactive. Extraocular motions intact. No scleral icterus. No injection or drainage. ENT: Nose without bleeding, purulent drainage or septal hematoma. Throat without erythema, tonsillar hypertrophy or exudate. Uvula midline. Airway patent. NECK: Trachea midline. No JVD or lymphadenopathy. Supple, nontender, no meningeal signs. CARDIOVASCULAR: Regular rate and rhythm without murmurs, gallops, or rubs. RESPIRATORY: Clear to auscultation diminshed in bases . Breath sounds equal bilaterally. No wheezes, rales, or rhonchi. GASTROINTESTINAL: Abdomen soft,obese non-tender, nondistended. No hepato- splenomegaly, or palpable masses. No guarding. MUSCULOSKELETAL: Extremities without clubbing, cyanosis, or2 plus edema present No joint tenderness, effusion, or edema noted. No calf tenderness. Negative Homans sign bilaterally. NEUROLOGICAL: Awake and alert. Cranial nerves II through XII intact. Motor and sensory grossly within normal limits. Five out of 5 muscle strength in all muscle groups. Normal speech. Laboratory Laboratory Tests Test 11/10/17 04:28 11/10/17 04:30 11/10/17 04:50 White Blood Count 4.5 Red Blood Count 4.58 Hemoglobin 13.7 Hematocrit 43.6 Mean Corpuscular Volume 95.2 Mean Corpuscular Hemoglobin 30.0 Mean Corpuscular Hemoglobin Concent 31.5 Red Cell Distribution Width 21.4 Platelet Count 122 Mean Platelet Volume 9.8 Neutrophils (%) (Auto) 75.3 Lymphocytes (%) (Auto) 15.3 Monocytes (%) (Auto) 8.6 Eosinophils (%) (Auto) 0.2 Basophils (%) (Auto) 0.6 Neutrophils # (Auto) 3.4 Lymphocytes # (Auto) 0.7 Monocytes # (Auto) 0.4 Eosinophils # (Auto) 0.0 Basophils # (Auto) 0.0 CBC Comment DIFF FINAL Differential Comment Prothrombin Time 10.8 Prothromb Time International Ratio 1.1 Activated Partial Thromboplast Time 26.7 Blood Urea Nitrogen 25 Creatinine 0.47 Random Glucose 93 Total Protein 6.6 Albumin 1.9 Calcium Level 8.9 Magnesium Level 1.8 Alkaline Phosphatase 137 Aspartate Amino Transf (AST/SGOT) 23 Alanine Aminotransferase (ALT/SGPT) 24 Total Bilirubin 0.7 Sodium Level 144 Potassium Level 4.6 Chloride Level 102 Carbon Dioxide Level 35.0 Anion Gap 7 Estimat Glomerular Filtration Rate 131 Total Creatine Kinase 35 Troponin I LESS THAN 0.02 B-Type Natriuretic Peptide 142 Lipase 26 Thyroid Stimulating Hormone 3rd Gen 2.210 Lactic Acid Level 1.3 Urine Color YELLOW Urine Turbidity HAZY Urine pH 7.0 Urine Specific [place] 1.026 Urine Protein 100 Urine Glucose (UA) NEG Urine Ketones 10 Urine Occult Blood MOD Urine Nitrite POS Urine Bilirubin NEG Urine Urobilinogen 4.0 Urine Leukocyte Esterase LARGE Urine RBC 70 Urine WBC Urine WBC Clumps RARE Urine Squamous Epithelial Cells <1 Urine Transitional Epithelial Cells 1 Urine Renal Epithelial Cells 1 Urine Bacteria MANY Urine Hyaline Casts 7 Urine Mucus FEW Microscopic Urinalysis Comment CATH-CULTURE IND Date/Time Source Procedure Growth Status 11/10/17 04:30 Blood Peripheral Aerobic Blood Culture Pending Received 11/10/17 04:30 Blood Peripheral Anaerobic Blood Culture Pending Received 11/10/17 04:50 Urine Catheterized Urine Urine Culture Pending Received Result Diagram: 11/10/1742711/10/17427 Imaging Last Impressions Chest X-Ray 11/10/17411 Signed Impressions: CONCLUSION: Cardiomegaly with mild basilar airspace disease, most characteristic of atelect asis. Abdomen/Pelvis CT 6/7/18 0412 Signed Impressions: CONCLUSION: 1. Moderate pericardial effusion and small left effusion with subsegmental bas ilar airspace disease. 2. Moderate anasarca. 3. Postoperative gastric bypass surgery and left hip replacement. 4. Multiple small gallstones. 5. Mild constipation. No bowel obstruction. CT Angiography 11/10/17 0000 Signed Impressions: CONCLUSION: 1. Negative for pulmonary embolus. 2. Moderate sized pericardial effusion and small left effusion. 3. Subsegmental basilar airspace disease. Course stabilized heart rate in ed with fluids iv abx started Caprini VTE Risk Assessment Caprini VTE Risk Assessment: No/Low Risk (score <= 1) VTE Pharm Contraindication: Hemorrhage Caprini Risk Assessment Model Point Value = 1 Point Value = 2 Point Value = 3 Point Value = 5 Age 41-60 Minor surgery BMI > 25 kg/m2 Swollen legs Varicose veins or History of unexplained or recurrent spontaneous Oral contraceptives or hormone replacement Sepsis (< 1 month) Serious lung disease, including pneumonia (< 1 month) Abnormal pulmonary function Acute myocardial infarction Congestive heart failure (< 1 month) History of inflammatory bowel disease Medical patient at bed rest Age 61-74 Arthroscopic surgery Major open surgery (> 45 min) Laparoscopic surgery (> 45 min) Malignancy Confined to bed (> 72 hours) Immobilizing plaster cast Central venous access Age >= 75 History of VTE Family history of VTE Factor V Leiden Prothrombin [id number] Lupus anticoagulant Anticardiolipin antibodies Elevated serum homocysteine Heparin-induced thrombocytopenia Other congenital or acquired thrombophilia Stroke (< 1 month) Elective arthroplasty Hip, pelvis, or leg fracture Acute spinal cord injury (< 1 month) Prophylaxis Regimen Total Risk Factor Score Risk Level Prophylaxis Regimen 0-1 Low Early ambulation 2 Moderate Order ONE of the following: *Sequential Compression Device (SCD) *Heparin 5000 units SQ BID 3-4 Higher Order ONE of the following medications: *Heparin 5000 units SQ TID *Enoxaparin/Lovenox 40 mg SQ daily (WT < 150 kg, CrCl > 30 mL/min) *Enoxaparin/Lovenox 30 mg SQ daily (WT < 150 kg, CrCl > 10-29 mL/min) *Enoxaparin/Lovenox 30 mg SQ BID (WT < 150 kg, CrCl > 30 mL/min) AND/OR *Sequential Compression Device (SCD) 5 or more Highest Order ONE of the following medications: *Heparin 5000 units SQ TID (Preferred with Epidurals) *Enoxaparin/Lovenox 40 mg SQ daily (WT < 150 kg, CrCl > 30 mL/min) *Enoxaparin/Lovenox 30 mg SQ daily (WT < 150 kg, CrCl > 10-29 mL/min) *Enoxaparin/Lovenox 30 mg SQ BID (WT < 150 kg, CrCl > 30 mL/min) AND *Sequential Compression Device (SCD) Assessment and Plan Assessment and Plan svt resolved pericardial effusion cardiology consulted possible gi bleed will hemoccult stools Discussed Condition With ed physician early this am orderes entered Discharge Planning snf Manpreet Huber DO Nov 10, 2017 19:20
[2017-11-10] MEDS: oxyCODONE/ACETAMINOPHEN 10 MG/325 MG TAB PO PRN (22:35)
[2017-11-11] VITALS (14 sets, daily range): BP systolic 120–134; BP diastolic 58–78; PULSE 82–121; RESP 21–43; TEMP 97.4–98.9; O2SAT 80–99
[2017-11-11 06:20] LABS: AUTOMATED NEUTROPHIL # 3.8 TH/MM3 (1.8-7.7); BASOPHIL % 0.5 % (0.0-2.0); EOSINOPHIL # 0.1 TH/MM3 (0-0.4); EOSINOPHIL % 2.1 % (0.0-4.0); HEMATOCRIT 42.6 % (35.0-46.0); HEMOGLOBIN 13.5 GM/DL (11.6-15.3); LYMPHOCYTE # 1.1 TH/MM3 (1.0-4.8); MEAN CELL VOLUME 95.9 FL (80.0-100.0); MEAN CORPUSCULAR HEMOGLOBIN 30.3 PG (27.0-34.0); MEAN CORPUSCULAR HGB CONC 31.6 % (32.0-36.0); MONO % 12.2 % (0.0-8.0); MONOCYTE # 0.7 TH/MM3 (0-0.9); NEUT % 66.2 % (16.0-70.0); PLATELET COUNT 104 TH/MM3 (150-450); RED BLOOD COUNT 4.44 MIL/MM3 (4.00-5.30); RED CELL DISTRIBUTION WIDTH 21.4 % (11.6-17.2); WHITE BLOOD COUNT 5.8 TH/MM3 (4.0-11.0)
[2017-11-11 06:42] LABS: CALCIUM 8.3 MG/DL (8.5-10.1); CREATININE 0.54 MG/DL (0.50-1.00)
[2017-11-11] MEDS: oxyCODONE/ACETAMINOPHEN 10 MG/325 MG TAB PO PRN ×2 (06:44→20:43)
[2017-11-11] MEDS: BETAMETHASONE/CLOTRIMAZOLE CREAM 15 GM TOPICAL SCH ×2 (08:20→19:55)
[2017-11-11] MEDS: ESMOLOL DRIP INJ PREMIX 250 ML IV PRN (08:39)
--- NOTE | 2017-11-11 08:44 | HHI.CCPN ---
Subjective Remarks/Hospital Course 67-year-old female presents to the emergency department by EMS transport from her retirement [facility] where she has been a resident since 03/02/17 for complaint of abdominal pain and identified to be hypotensive. Patient was also identified to be in an SVT with a rate sustained of 174-175. Patient has prior history of atrial fibrillation is currently on no anticoagulation. Patient recently started on antibiotic yesterday for chest x-ray which showed cardiomegaly with isolated right lower lobe infiltrate. Patient reports she thinks she might of had dark stool. Patient has had no fever. Patient positive tobacco use positive anemia atrial fibrillation chronic back pain COPD GERD gastric bypass headache hip replacement hypertension episodes of hypoxia migraine spinal stenosis bilateral lower extremity lower leg cellulitis muscle weakness bedbound and DNR. Patient reportedly received a DuoNeb at 3:10. Patient is unable to identify exacerbating or alleviating factors. In the ER she was noted to have a flutter with borderline blood pressure. She received IV Lopressor as well as 1.5 L normal saline bolus. Patient was admitted to the ICU by Dr. Huber and critical care consult was requested. CT chest done in the ER showed a moderate pericardial effusion and ascites. Dr. Wright ordered a stat 2D echo which he reviewed personally while it was being done. No tamponade physiology observed with good contractility of RV and LV. Cardiology consult requested for further evaluation for arrhythmia and pericardial effusion. At the time of my evaluation patient had minimal shortness of breath though she stated she was already feeling better. She denied any chest pain abdominal pain nausea vomiting diarrhea melena or rectal bleeding. She reiterated that she did not want intubation or CPR if she worsened clinically. She stated that in case she was not able to make her own decisions her brother would be making healthcare decisions. Subjective: A flutter Rate in 80s on esmolol drip at 50 mcg/kg/min. Receiving digoxin this morning and turning esmolol drip off. She denies CP, SOB, N/V, abd pain, diarrhea. U/a abnormal but she denies urinary symptoms and there is no leukocytosis or fever, awaiting culture data. Hgb stable. Objective Vital Signs Date Time Temp Pulse Resp B/P (MAP) Pulse Ox O2 Delivery O2 Flow Rate FiO2 11/11/17 06:00 83 11/11/17 04:00 98.9 43 122/77 (92) 94 11/10/17 06:41 Room Air 3.00 Intake and Output 11/11/17 11/11/17 11/12/17 08:00 16:00 00:00 Intake Total 200 ml Output Total 350 ml Balance -150 ml Result Diagram: 11/11/17 0611/11/17600 Imaging Last Impressions Chest X-Ray 11/10/17411 Signed Impressions: CONCLUSION: Cardiomegaly with mild basilar airspace disease, most characteristic of atelect asis. Abdomen/Pelvis CT 11/10/17411 Signed Impressions: CONCLUSION: 1. Moderate pericardial effusion and small left effusion with subsegmental bas ilar airspace disease. 2. Moderate anasarca. 3. Postoperative gastric bypass surgery and left hip replacement. 4. Multiple small gallstones. 5. Mild constipation. No bowel obstruction. CT Angiography 11/10/17 0000 Signed Impressions: CONCLUSION: 1. Negative for pulmonary embolus. 2. Moderate sized pericardial effusion and small left effusion. 3. Subsegmental basilar airspace disease. Objective Remarks Narrative GENERAL: Well-developed morbidly obese female sitting up in bed on supplemental oxygen 2 L/min nasal cannula O2 saturation 98% SKIN: Cool and dry. Noted prior physician saw rash and erythema on pannus, no rash or erythema currently. Intertriginous regions under breast and groin are dark and do not appear actively infected. HEAD: Normocephalic. EYES: No scleral icterus. No injection or drainage. NECK: Supple, trachea midline. No JVD or lymphadenopathy. CARDIOVASCULAR: Regular, without murmurs, gallops, or rubs. RESPIRATORY: Air entry decreased bilaterally at bases, no wheezing. On NC. GASTROINTESTINAL: Abdomen soft, non-tender , nondistended. MUSCULOSKELETAL: No cyanosis, trace bipedal edema with bilateral venous stasis changes NEURO: Awake and alert, oriented to person, place, year. Conversant. Moving extremities spontaneously. A/P Assessment and Plan SVT/A flutter with RVR Hypotension, resolved. Moderate pericardial effusion Mild pulmonary HTN Ascites Morbid obesity anemia depression sleep apnea spinal stenosis urinary incontinence h/o atrial fibrillation chronic back pain COPD GERD h/o gastric bypass h/o headache/ migraines h/o hypertension Spinal stenosis Plan: Admitted to ICU Received digoxin 0.5 mg IV 1 dose. Continue digoxin 0.125 mg po daily. Wean esmolol drip off. 2D echo does not show tamponade physiology and shows a moderate pericardial effusion. Cardiology consulted, recommending rate control with digoxin and diuresis. Diurese as tolerated, monitoring creatinine. Patient reaffirms DNR status. Followup urine culture. Noted hemoccult stool pending. Hgb stable. Further medical management per Dr. Huber. Critical care will be available as needed. PT consult. Level 2 followup Kaitlynn Cates MD Nov 11, 2017 08:44
[2017-11-11] MEDS ORDERED: DIGOXIN 0.125 MG TAB PO SCH (09:00)
[2017-11-11] MEDS ORDERED: DIGOXIN 0.125 MG TAB PO ONE (15:45)
[2017-11-11] MEDS ORDERED: METOPROLOL TARTRATE 25 MG TAB PO ONE (15:45)
--- NOTE | 2017-11-11 16:23 | PD.CARD.PN ---
Subjective Subjective Remarks No CP or excessive dyspnea, coughing, HR increased off esmolol Objective Medications Current Medications Medications (Trade) Dose Ordered Sig/Teresa Route Start Time Stop Time Status Last Admin (NS Flush) 2 ml UNSCH PRN IV FLUSH 11/10/17 04:15 (Lotrisone Cream) 1 applic BID TOPICAL 11/10/17 09:00 11/11/17 08:20 (Percocet 10-325 Mg) 1 tab Q6H PRN PO 11/10/17 06:45 11/11/17 06:44 (Albuterol Neb) 0.63 mg Q6HR NEB PRN NEB 11/10/17 13:45 (Lanoxin) 0.125 mg DAILY PO 11/11/17 09:00 11/11/17 08:19 Esmolol HCl/ Sodium Chloride 250 ml @ 30.3 mls/hr TITRATE PRN IV 11/11/17 18:00 (Brevibloc Bolus Inj) 20 mg BOLUS PRN IV PUSH 11/11/17 18:00 (Lanoxin) 0.25 mg DAILY PO 11/12/17 09:00 (Lopressor) 25 mg Q12HR PO 11/12/17 09:00 Vital Signs / I&O Vital Signs Date Time Temp Pulse Resp B/P (MAP) Pulse Ox O2 Delivery O2 Flow Rate FiO2 11/11/17 14:00 98 11/11/17 12:00 88 11/11/17 12:00 97.4 88 25 130/78 (95) 89 11/11/17 10:14 25 11/11/17 10:00 88 11/11/17 09:21 94 Nasal Cannula 2.00 11/11/17 08:39 127 120/76 11/11/17 08:00 97.4 86 21 120/76 (91) 99 11/11/17 08:00 88 11/11/17 06:00 83 11/11/17 04:00 83 11/11/17 04:00 98.9 83 43 122/77 (92) 94 11/11/17 02:00 83 11/11/17 00:00 82 11/11/17 00:00 98.7 82 23 123/74 (90) 92 11/10/17 23:48 86 120/73 11/10/17 23:47 86 120/73 11/10/17 22:00 83 11/10/17 20:00 85 11/10/17 20:00 98.8 85 24 107/57 (74) 96 11/10/17 19:00 91 107/57 11/10/17 18:57 86 105/58 11/10/17 18:33 91 122/59 11/10/17 18:05 118 127/72 11/10/17 18:00 113 I/O 11/10/17 11/10/17 11/10/17 11/11/17 11/11/17 11/11/17 07:00 15:00 23:00 07:00 15:00 23:00 Intake Total 199 ml 368 ml Output Total 450 ml 350 ml Balance -251 ml 18 ml Intake Oral 120 ml 200 ml IV Total 79 ml 168 ml Output Urine Total 450 ml 350 ml # Bowel Movements 0 1 Physical Exam GENERAL: In NAD. SKIN: Warm and dry. HEAD: Normocephalic. EYES: No scleral icterus. No injection or drainage. NECK: Supple, trachea midline. No JVD or lymphadenopathy. CARDIOVASCULAR: Irreg, without murmurs, gallops, or rubs. RESPIRATORY: Breath sounds equal bilaterally. No accessory muscle use. GASTROINTESTINAL: Abdomen soft, non-tender, nondistended. MUSCULOSKELETAL: No cyanosis, or edema. Laboratory Laboratory Tests Test 11/11/17 06:01 White Blood Count 5.8 TH/MM3 Red Blood Count 4.44 MIL/MM3 Hemoglobin 13.5 GM/DL Hematocrit 42.6 % Mean Corpuscular Volume 95.9 FL Mean Corpuscular Hemoglobin 30.3 PG Mean Corpuscular Hemoglobin Concent 31.6 % Red Cell Distribution Width 21.4 % Platelet Count 104 TH/MM3 Mean Platelet Volume 9.0 FL Neutrophils (%) (Auto) 66.2 % Lymphocytes (%) (Auto) 19.0 % Monocytes (%) (Auto) 12.2 % Eosinophils (%) (Auto) 2.1 % Basophils (%) (Auto) 0.5 % Neutrophils # (Auto) 3.8 TH/MM3 Lymphocytes # (Auto) 1.1 TH/MM3 Monocytes # (Auto) 0.7 TH/MM3 Eosinophils # (Auto) 0.1 TH/MM3 Basophils # (Auto) 0.0 TH/MM3 CBC Comment DIFF FINAL Differential Comment Blood Urea Nitrogen 21 MG/DL Creatinine 0.54 MG/DL Random Glucose 70 MG/DL Calcium Level 8.3 MG/DL Sodium Level 142 MEQ/L Potassium Level 4.6 MEQ/L Chloride Level 104 MEQ/L Carbon Dioxide Level 33.0 MEQ/L Anion Gap 5 MEQ/L Estimat Glomerular Filtration Rate 112 ML/MIN Assessment and Plan Problem List: (1) Atrial flutter with rapid ventricular response ICD Codes: I48.92 - Unspecified atrial flutter Status: Acute (2) History of COPD ICD Codes: Z87.09 - Personal history of other diseases of the respiratory system Status: Acute (3) Pericardial effusion ICD Codes: I31.3 - Pericardial effusion (noninflammatory) (4) Anemia ICD Codes: D64.9 - Anemia, unspecified (5) DNR no code (do not resuscitate) ICD Codes: Z66 - Do not resuscitate (6) Smoking ICD Codes: F17.200 - Nicotine dependence, unspecified, uncomplicated Assessment and Plan Rate poorly controlled off esmolol (restarted). Will increase digoxin dose and start PO metoprolol; then wean off esmolol. Titrate metoprolol if necessary. Increase activity, PT. D/w pt and family. Danielle Guevara MD Nov 11, 2017 16:23
[2017-11-11] MEDS: RESP: ALBUTEROL 0.63 MG/3 ML NEB (PRN) NEB (16:24)
[2017-11-11] MEDS ORDERED: ESMOLOL HCL 100 MG/10 ML VIAL IV PUSH PRN (18:00)
--- NOTE | 2017-11-11 20:12 | HHI.PR ---
Subjective Remarks Late entry, Seen earlier this am No reported complaints, denies CP no sob at rest Objective Vital Signs Date Time Temp Pulse Resp B/P (MAP) Pulse Ox O2 Delivery O2 Flow Rate FiO2 11/11/17 18:00 84 11/11/17 18:00 84 148/90 11/11/17 16:00 98.0 93 27 131/58 (82) 80 11/11/17 16:00 93 11/11/17 14:00 98 11/11/17 12:00 88 11/11/17 12:00 97.4 88 25 130/78 (95) 89 11/11/17 10:14 25 11/11/17 10:00 88 11/11/17 09:21 94 Nasal Cannula 2.00 11/11/17 08:39 127 120/76 11/11/17 08:00 97.4 86 21 120/76 (91) 99 11/11/17 08:00 88 11/11/17 06:00 83 11/11/17 04:00 83 11/11/17 04:00 98.9 83 43 122/77 (92) 94 11/11/17 02:00 83 11/11/17 00:00 82 11/11/17 00:00 98.7 82 23 123/74 (90) 92 11/10/17 23:48 86 120/73 11/10/17 23:47 86 120/73 11/10/17 22:00 83 I/O 11/10/17 11/10/17 11/10/17 11/11/17 11/11/17 11/11/17 07:00 15:00 23:00 07:00 15:00 23:00 Intake Total 199 ml 368 ml 250 ml 370 ml Output Total 450 ml 350 ml 400 ml Balance -251 ml 18 ml 250 ml -30 ml Intake Oral 120 ml 200 ml 120 ml IV Total 79 ml 168 ml 250 ml 250 ml Output Urine Total 450 ml 350 ml 400 ml # Bowel Movements 0 1 0 Result Diagram: 11/11/1760011/11/17600 Imaging Last 72 hours Impressions Chest X-Ray 11/10/17411 Signed Impressions: CONCLUSION: Cardiomegaly with mild basilar airspace disease, most characteristic of atelect asis. Abdomen/Pelvis CT 11/10/17411 Signed Impressions: CONCLUSION: 1. Moderate pericardial effusion and small left effusion with subsegmental bas ilar airspace disease. 2. Moderate anasarca. 3. Postoperative gastric bypass surgery and left hip replacement. 4. Multiple small gallstones. 5. Mild constipation. No bowel obstruction. CT Angiography 11/10/17 0000 Signed Impressions: CONCLUSION: 1. Negative for pulmonary embolus. 2. Moderate sized pericardial effusion and small left effusion. 3. Subsegmental basilar airspace disease. Procedures Laboratory Tests Test 11/10/17 04:28 11/10/17 04:30 11/10/17 04:50 11/11/17 06:01 Mean Corpuscular Hemoglobin Concent 31.5 % (32.0-36.0) 31.6 % (32.0-36.0) Red Cell Distribution Width 21.4 % (11.6-17.2) 21.4 % (11.6-17.2) Platelet Count 122 TH/MM3 (150-450) 104 TH/MM3 (150-450) Neutrophils (%) (Auto) 75.3 % (16.0-70.0) Monocytes (%) (Auto) 8.6 % (0.0-8.0) 12.2 % (0.0-8.0) Lymphocytes # (Auto) 0.7 TH/MM3 (1.0-4.8) Blood Urea Nitrogen 25 MG/DL (7-18) 21 MG/DL (7-18) Creatinine 0.47 MG/DL (0.50-1.00) Albumin 1.9 GM/DL (3.4-5.0) Alkaline Phosphatase 137 U/L (45-117) Carbon Dioxide Level 35.0 MEQ/L (21.0-32.0) 33.0 MEQ/L (21.0-32.0) Troponin I LESS THAN 0.02 NG/ML B-Type Natriuretic Peptide 142 PG/ML (0-100) Lipase 26 U/L (73-393) Urine Turbidity HAZY (CLEAR) Urine Protein 100 mg/dL (NEG-TRACE) Urine Ketones 10 mg/dL (NEG) Urine Occult Blood MOD (NEG) Urine Nitrite POS (NEG) Urine Urobilinogen 4.0 MG/DL (LESS THAN Urine Leukocyte Esterase LARGE (NEG) Urine RBC 70 /hpf (0-3) Urine WBC Clumps RARE (NONE) Urine Bacteria MANY /hpf (NONE) Urine Mucus FEW /lpf (OCC) Random Glucose 70 MG/DL (74-106) Calcium Level 8.3 MG/DL (8.5-10.1) Objective Remarks GENERAL: Well-developed female, in no apparent distress SKIN: warm and dry, b/l le erythema EYES: No scleral icterus. No injection or drainage. NECK: Supple, trachea midline. No JVD or lymphadenopathy. CARDIOVASCULAR: without murmurs, gallops, or rubs. RESPIRATORY: equal B/L Clear, diminished, no wheezing, rhonchi GASTROINTESTINAL: Abdomen soft, non-tender , nondistended. NEURO: Awake and alert, LOPEZ, normal speech Medications and IVs Current Medications Medications (Trade) Dose Ordered Sig/Teresa Route Start Time Stop Time Status Last Admin (NS Flush) 2 ml UNSCH PRN IV FLUSH 11/10/17 04:15 (Lotrisone Cream) 1 applic BID TOPICAL 11/10/17 09:00 11/11/17 19:55 (Percocet 10-325 Mg) 1 tab Q6H PRN PO 11/10/17 06:45 11/11/17 06:44 (Albuterol Neb) 0.63 mg Q6HR NEB PRN NEB 11/10/17 13:45 11/11/17 16:24 (Lanoxin) 0.125 mg DAILY PO 11/11/17 09:00 11/11/17 08:19 Esmolol HCl/ Sodium Chloride 250 ml @ 30.3 mls/hr TITRATE PRN IV 11/11/17 18:00 (Brevibloc Bolus Inj) 20 mg BOLUS PRN IV PUSH 11/11/17 18:00 (Lanoxin) 0.25 mg DAILY PO 11/12/17 09:00 (Lopressor) 25 mg Q12HR PO 11/12/17 09:00 Assessment and Plan Problem List: (1) Atrial flutter with rapid ventricular response ICD Codes: I48.92 - Unspecified atrial flutter Status: Acute Plan: Cont Esmolol, Digoxin, rate control cardiology following. (2) History of COPD ICD Codes: Z87.09 - Personal history of other diseases of the respiratory system Status: Acute Plan: Cont to monitor, bronchodilators, Oxygen supplement sats>[id number] Discharge Planning Back to [facility] once stable Senia Wadsworth Nov 11, 2017 20:12
[2017-11-12] VITALS (18 sets, daily range): BP systolic 114–139; BP diastolic 60–83; PULSE 81–150; RESP 14–36; TEMP 97.5–98.8; O2SAT 88–99
[2017-11-12] MEDS: ESMOLOL DRIP INJ PREMIX 250 ML IV PRN ×3 (00:15→16:40)
[2017-11-12] MEDS: oxyCODONE/ACETAMINOPHEN 10 MG/325 MG TAB PO PRN ×2 (05:23→20:29)
[2017-11-12] MEDS: BETAMETHASONE/CLOTRIMAZOLE CREAM 15 GM TOPICAL SCH ×2 (09:00→20:29)
[2017-11-12] MEDS: METOPROLOL TARTRATE 25 MG TAB PO SCH ×2 (09:00→20:29)
[2017-11-12] MEDS: cefTRIAXone INJ 1,000 MG in SODIUM CHLORIDE 0.9% INJ 100 ML IV SCH (09:04)
[2017-11-12] MEDS: DIGOXIN 0.25 MG TAB PO SCH (09:26)
--- NOTE | 2017-11-12 10:46 | HHI.PR ---
Subjective Remarks Still in AF but patient tells me she is feeling better today Objective Vital Signs Date Time Temp Pulse Resp B/P (MAP) Pulse Ox O2 Delivery O2 Flow Rate FiO2 11/12/17 09:15 82 122/78 11/12/17 09:00 81 11/12/17 08:00 98.0 81 14 122/76 (91) 98 11/12/17 08:00 81 11/12/17 07:00 82 11/12/17 06:00 83 11/12/17 06:00 83 11/12/17 05:00 84 11/12/17 04:00 97.9 83 122/78 (93) 93 11/12/17 04:00 83 11/12/17 04:00 83 11/12/17 03:00 83 11/12/17 02:00 82 11/12/17 02:00 82 11/12/17 01:00 81 11/12/17 00:15 154 139/79 11/12/17 00:00 98.0 150 139/79 (99) 97 11/12/17 00:00 150 11/12/17 00:00 150 11/11/17 22:00 121 11/11/17 21:14 94 Nasal Cannula 4.00 11/11/17 20:00 97.8 85 134/76 (95) 93 11/11/17 20:00 85 11/11/17 18:00 84 11/11/17 18:00 84 148/90 11/11/17 16:00 98.0 93 27 131/58 (82) 80 11/11/17 16:00 93 11/11/17 14:00 98 11/11/17 12:00 88 11/11/17 12:00 97.4 88 25 130/78 (95) 89 I/O 11/11/17 11/11/17 11/11/17 11/12/17 11/12/17 11/12/17 07:00 15:00 23:00 07:00 15:00 23:00 Intake Total 368 ml 250 ml 370 ml 200 ml Output Total 350 ml 400 ml 450 ml Balance 18 ml 250 ml -30 ml -250 ml Intake Oral 200 ml 120 ml 200 ml IV Total 168 ml 250 ml 250 ml Output Urine Total 350 ml 400 ml 450 ml # Bowel Movements 1 0 1 Result Diagram: 11/11/17 0611/11/17600 Imaging Last Impressions Chest X-Ray 11/10/17411 Signed Impressions: CONCLUSION: Cardiomegaly with mild basilar airspace disease, most characteristic of atelect asis. Abdomen/Pelvis CT 11/10/17411 Signed Impressions: CONCLUSION: 1. Moderate pericardial effusion and small left effusion with subsegmental bas ilar airspace disease. 2. Moderate anasarca. 3. Postoperative gastric bypass surgery and left hip replacement. 4. Multiple small gallstones. 5. Mild constipation. No bowel obstruction. CT Angiography 11/10/17 0000 Signed Impressions: CONCLUSION: 1. Negative for pulmonary embolus. 2. Moderate sized pericardial effusion and small left effusion. 3. Subsegmental basilar airspace disease. Procedures Laboratory Tests Test 11/10/17 04:28 11/10/17 04:30 11/10/17 04:50 11/11/17 06:01 Mean Corpuscular Hemoglobin Concent 31.5 % (32.0-36.0) 31.6 % (32.0-36.0) Red Cell Distribution Width 21.4 % (11.6-17.2) 21.4 % (11.6-17.2) Platelet Count 122 TH/MM3 (150-450) 104 TH/MM3 (150-450) Neutrophils (%) (Auto) 75.3 % (16.0-70.0) Monocytes (%) (Auto) 8.6 % (0.0-8.0) 12.2 % (0.0-8.0) Lymphocytes # (Auto) 0.7 TH/MM3 (1.0-4.8) Blood Urea Nitrogen 25 MG/DL (-18) 21 MG/DL (-18) Creatinine 0.47 MG/DL (0.50-1.00) Albumin 1.9 GM/DL (3.4-5.0) Alkaline Phosphatase 137 U/L (45-117) Carbon Dioxide Level 35.0 MEQ/L (21.0-32.0) 33.0 MEQ/L (21.0-32.0) Troponin I LESS THAN 0.02 NG/ML B-Type Natriuretic Peptide 142 PG/ML (0-100) Lipase 26 U/L (73-393) Urine Turbidity HAZY (CLEAR) Urine Protein 100 mg/dL (NEG-TRACE) Urine Ketones 10 mg/dL (NEG) Urine Occult Blood MOD (NEG) Urine Nitrite POS (NEG) Urine Urobilinogen 4.0 MG/DL (LESS THAN Urine Leukocyte Esterase LARGE (NEG) Urine RBC 70 /hpf (0-3) Urine WBC Clumps RARE (NONE) Urine Bacteria MANY /hpf (NONE) Urine Mucus FEW /lpf (OCC) Random Glucose 70 MG/DL (74-106) Calcium Level 8.3 MG/DL (8.5-10.1) Objective Remarks GENERAL: SKIN: Warm and dry. HEAD: Normocephalic. EYES: No scleral icterus. No injection or drainage. NECK: Supple, trachea midline. No JVD or lymphadenopathy. CARDIOVASCULAR: Irregular rate and rhythm with 2/6 systolic murmur. No rub heard. RESPIRATORY: Breath sounds equal bilaterally. No accessory muscle use. GASTROINTESTINAL: Abdomen soft, non-tender, nondistended. MUSCULOSKELETAL: No cyanosis, or edema. BACK: Nontender without obvious deformity. No CVA tenderness. Medications and IVs Current Medications Medications (Trade) Dose Ordered Sig/Teresa Route Start Time Stop Time Status Last Admin (NS Flush) 2 ml UNSCH PRN IV FLUSH 11/10/17 04:15 (Lotrisone Cream) 1 applic BID TOPICAL 11/10/17 09:00 11/11/17 19:55 (Percocet 10-325 Mg) 1 tab Q6H PRN PO 11/10/17 06:45 11/12/17 05:23 (Albuterol Neb) 0.63 mg Q6HR NEB PRN NEB 11/10/17 13:45 11/11/17 16:24 Esmolol HCl/ Sodium Chloride 250 ml @ 30.3 mls/hr TITRATE PRN IV 11/11/17 18:00 11/12/17 09:15 (Brevibloc Bolus Inj) 20 mg BOLUS PRN IV PUSH 11/11/17 18:00 (Lanoxin) 0.25 mg DAILY PO 11/12/17 09:00 11/12/17 09:26 (Lopressor) 25 mg Q12HR PO 11/12/17 09:00 11/12/17 09:00 Ceftriaxone Sodium 1000 mg/ Sodium Chloride 100 ml @ 200 mls/hr Q24H IV 11/12/17 08:00 11/12/17 09:04 Assessment and Plan Problem List: (1) UTI (urinary tract infection) ICD Codes: N39.0 - Urinary tract infection, site not specified Status: Acute Plan: Cont antibiotics and follow (2) Atrial flutter with rapid ventricular response ICD Codes: I48.92 - Unspecified atrial flutter Status: Acute Plan: Cards and air liaison and special staff following and monitoring (3) Pericardial effusion ICD Codes: I31.3 - Pericardial effusion (noninflammatory) Plan: Per Pretzel Cooker. She is hemodynamically stable at this time. (4) History of congestive heart failure ICD Codes: Z86.79 - Personal history of other diseases of the circulatory system Status: Acute Plan: Cards and Job Analyst are following Assessment and Plan Cont to monitor closely and F/U Cards recommendations Discussed Condition With Patient and admissions counselor Planning Home vs SNF Problem Qualifiers (1) UTI (urinary tract infection): Francis Buchanan Nov 12, 2017 10:46
[2017-11-12] MEDS ORDERED: METOPROLOL TARTRATE 5 MG/5 ML VIAL IV PUSH PRN (11:00)
[2017-11-12] MEDS: FUROSEMIDE 40 MG TAB PO SCH (11:00)
--- NOTE | 2017-11-12 11:09 | HHI.CCPN ---
Subjective Remarks/Hospital Course 67-year-old female presents to the emergency department by EMS transport from her custodial [facility] where she has been a resident since 03/02/17 for complaint of abdominal pain and identified to be hypotensive. Patient was also identified to be in an SVT with a rate sustained of 174-175. Patient has prior history of atrial fibrillation is currently on no anticoagulation. Patient recently started on antibiotic yesterday for chest x-ray which showed cardiomegaly with isolated right lower lobe infiltrate. Patient reports she thinks she might of had dark stool. Patient has had no fever. Patient positive tobacco use positive anemia atrial fibrillation chronic back pain COPD GERD gastric bypass headache hip replacement hypertension episodes of hypoxia migraine spinal stenosis bilateral lower extremity lower leg cellulitis muscle weakness bedbound and DNR. Patient reportedly received a DuoNeb at 3:10. Patient is unable to identify exacerbating or alleviating factors. In the ER she was noted to have a flutter with borderline blood pressure. She received IV Lopressor as well as 1.5 L normal saline bolus. Patient was admitted to the ICU by Dr. Huber and critical care consult was requested. CT chest done in the ER showed a moderate pericardial effusion and ascites. Dr. Wright ordered a stat 2D echo which he reviewed personally while it was being done. No tamponade physiology observed with good contractility of RV and LV. Cardiology consult requested for further evaluation for arrhythmia and pericardial effusion. At the time of my evaluation patient had minimal shortness of breath though she stated she was already feeling better. She denied any chest pain abdominal pain nausea vomiting diarrhea melena or rectal bleeding. She reiterated that she did not want intubation or CPR if she worsened clinically. She stated that in case she was not able to make her own decisions her brother would be making healthcare decisions. 11/11 A flutter Rate in 80s on esmolol drip at 50 mcg/kg/min. Receiving digoxin this morning and turning esmolol drip off. She denies CP, SOB, N/V, abd pain, diarrhea. U/a abnormal but she denies urinary symptoms and there is no leukocytosis or fever, awaiting culture data. Hgb stable. Subjective: 11/12 Back on esmolol drip. Digoxin dose increased by cardiology and metoprolol added. Will try to wean further. Urine culture with GNR, initiating Rocephin but will need to followup final culture data. Objective Vital Signs Date Time Temp Pulse Resp B/P (MAP) Pulse Ox O2 Delivery O2 Flow Rate FiO2 11/12/17 10:00 82 11/12/17 09:15 122/78 11/12/17 08:00 98.0 14 98 11/11/17 21:14 Nasal Cannula 4.00 Intake and Output 11/12/17 11/12/17 11/12/17 07:59 15:59 23:59 Intake Total 200 ml Output Total 450 ml Balance -250 ml Result Diagram: 11/11/1760011/11/17600 Imaging Last Impressions Chest X-Ray 11/10/17411 Signed Impressions: CONCLUSION: Cardiomegaly with mild basilar airspace disease, most characteristic of atelect asis. Abdomen/Pelvis CT 11/10/17411 Signed Impressions: CONCLUSION: 1. Moderate pericardial effusion and small left effusion with subsegmental bas ilar airspace disease. 2. Moderate anasarca. 3. Postoperative gastric bypass surgery and left hip replacement. 4. Multiple small gallstones. 5. Mild constipation. No bowel obstruction. CT Angiography 11/10/17 0000 Signed Impressions: CONCLUSION: 1. Negative for pulmonary embolus. 2. Moderate sized pericardial effusion and small left effusion. 3. Subsegmental basilar airspace disease. Objective Remarks Narrative GENERAL: Well-developed morbidly obese female sitting up in bed on supplemental oxygen 2 L/min nasal cannula O2 saturation 98% SKIN: Cool and dry. Intertriginous regions under breast and groin are dark and do not appear actively infected. HEAD: Normocephalic. EYES: No scleral icterus. No injection or drainage. NECK: Supple, trachea midline. No JVD or lymphadenopathy. CARDIOVASCULAR: Regular, without murmurs, gallops, or rubs. A flutter on the monitor. RESPIRATORY: Air entry decreased bilaterally at bases, no wheezing. On NC. GASTROINTESTINAL: Abdomen soft, non-tender , nondistended. MUSCULOSKELETAL: No cyanosis, trace bipedal edema with bilateral venous stasis changes NEURO: Awake and alert, oriented to person, place, year. Conversant. Moving extremities spontaneously. A/P Assessment and Plan A flutter with RVR Hypotension, resolved. Moderate pericardial effusion Mild pulmonary HTN Ascites Morbid obesity anemia depression sleep apnea spinal stenosis urinary incontinence h/o atrial fibrillation chronic back pain COPD GERD h/o gastric bypass h/o headache/ migraines h/o hypertension Spinal stenosis Plan: Received digoxin 0.5 mg IV 1 dose. Continue digoxin 0.250 mg po daily. Continue metoprolol 25 mg po bid. Wean esmolol drip off. Will titrate metoprolol as needed. 2D echo does not show tamponade physiology and shows a moderate pericardial effusion. Cardiology consulted, recommending rate control with digoxin and diuresis. Lasix 40 mg po daily, f/u creatinine. Patient reaffirms DNR status. Urine cx GNR, Started rocephin but will need to f/u final culture data. Blood culture 1/4 bottles with staph epi which is likely contaminant. Further medical management per Dr. Huber. Critical care will signoff, please call with questions. PT consult. Level 2 followup Kaitlynn Cates MD Nov 12, 2017 11:09
[2017-11-12] MEDS ORDERED: CHLORHEXIDINE GLUCONATE 2 % 1 PACK (2 CLOTHS)(extra cloths) TOPICAL PRN (12:15)
[2017-11-12] MEDS: RESP: ALBUTEROL 0.63 MG/3 ML NEB (PRN) NEB (16:15)
[2017-11-13] VITALS (15 sets, daily range): BP systolic 105–134; BP diastolic 55–91; PULSE 80–102; RESP 0–33; TEMP 97.6–98.5; O2SAT 82–98
[2017-11-13] MEDS: CHLORHEXIDINE GLUCONATE 2 % 1 PACK (2 CLOTHS)(taper/protocol) TOPICAL SCH ×2 (04:00→21:38)
[2017-11-13] MEDS: ESMOLOL DRIP INJ PREMIX 250 ML IV PRN ×3 (04:09→19:07)
[2017-11-13] MEDS: RESP: ALBUTEROL 0.63 MG/3 ML NEB (PRN) NEB ×4 (06:24→19:52)
[2017-11-13] MEDS: cefTRIAXone INJ 1,000 MG in SODIUM CHLORIDE 0.9% INJ 100 ML IV SCH (07:37)
[2017-11-13] MEDS: METOPROLOL TARTRATE 25 MG TAB PO SCH ×2 (08:50→21:39)
[2017-11-13] MEDS: DIGOXIN 0.25 MG TAB PO SCH (08:50)
[2017-11-13] MEDS: FUROSEMIDE 40 MG TAB PO SCH (08:51)
[2017-11-13] MEDS: BETAMETHASONE/CLOTRIMAZOLE CREAM 15 GM TOPICAL SCH ×2 (08:51→21:41)
[2017-11-13] MEDS: oxyCODONE/ACETAMINOPHEN 10 MG/325 MG TAB PO PRN ×2 (10:54→21:39)
--- NOTE | 2017-11-13 13:19 | HHI.PR ---
Subjective Remarks Still in AF and sats are lower today and O2 increased. Have consulted Pulm to see and follow. Objective Vital Signs Date Time Temp Pulse Resp B/P (MAP) Pulse Ox O2 Delivery O2 Flow Rate FiO2 11/13/17 12:00 89 11/13/17 12:00 97.7 90 18 105/55 (72) 97 11/13/17 12:00 18 11/13/17 10:43 94 116/70 11/13/17 10:00 98 11/13/17 09:32 93 Nasal Cannula 4.00 11/13/17 08:00 98 11/13/17 08:00 98.3 98 18 124/90 (101) 82 11/13/17 06:24 98 Nasal Cannula 3.00 11/13/17 06:00 95 11/13/17 04:09 102 131/93 11/13/17 04:00 102 11/13/17 04:00 97.9 102 33 127/89 (102) 91 11/13/17 02:00 89 11/13/17 00:00 98.5 99 0 134/91 (105) 94 11/13/17 00:00 99 11/12/17 22:00 106 11/12/17 21:45 92 Nasal Cannula 3.00 11/12/17 20:00 98.8 98 36 114/82 (93) 88 11/12/17 20:00 98 11/12/17 19:37 97 108/70 11/12/17 18:00 87 11/12/17 16:40 87 118/83 11/12/17 16:00 87 11/12/17 16:00 97.6 87 18 118/83 (95) 99 11/12/17 14:00 81 I/O 11/12/17 11/12/17 11/12/17 11/13/17 11/13/17 11/13/17 07:00 15:00 23:00 07:00 15:00 23:00 Intake Total 200 ml 340 ml 200 ml Output Total 450 ml 1100 ml 1000 ml Balance -250 ml -760 ml -800 ml Intake Oral 200 ml 240 ml 200 ml IV Total 100 ml Output Urine Total 450 ml 1100 ml 1000 ml # Bowel Movements 1 2 0 Result Diagram: 11/11/17 0601 11/11/17 06 Procedures Laboratory Tests Test 11/10/17 04:28 11/10/17 04:30 11/10/17 04:50 11/11/17 06:01 Mean Corpuscular Hemoglobin Concent 31.5 % (32.0-36.0) 31.6 % (32.0-36.0) Red Cell Distribution Width 21.4 % (11.6-17.2) 21.4 % (11.6-17.2) Platelet Count 122 TH/MM3 (150-450) 104 TH/MM3 (150-450) Neutrophils (%) (Auto) 75.3 % (16.0-70.0) Monocytes (%) (Auto) 8.6 % (0.0-8.0) 12.2 % (0.0-8.0) Lymphocytes # (Auto) 0.7 TH/MM3 (1.0-4.8) Blood Urea Nitrogen 25 MG/DL (7-18) 21 MG/DL (7-18) Creatinine 0.47 MG/DL (0.50-1.00) Albumin 1.9 GM/DL (3.4-5.0) Alkaline Phosphatase 137 U/L (45-117) Carbon Dioxide Level 35.0 MEQ/L (21.0-32.0) 33.0 MEQ/L (21.0-32.0) Troponin I LESS THAN 0.02 NG/ML B-Type Natriuretic Peptide 142 PG/ML (0-100) Lipase 26 U/L (73-393) Urine Turbidity HAZY (CLEAR) Urine Protein 100 mg/dL (NEG-TRACE) Urine Ketones 10 mg/dL (NEG) Urine Occult Blood MOD (NEG) Urine Nitrite POS (NEG) Urine Urobilinogen 4.0 MG/DL (LESS THAN Urine Leukocyte Esterase LARGE (NEG) Urine RBC 70 /hpf (0-3) Urine WBC Clumps RARE (NONE) Urine Bacteria MANY /hpf (NONE) Urine Mucus FEW /lpf (OCC) Random Glucose 70 MG/DL (74-106) Calcium Level 8.3 MG/DL (8.5-10.1) Objective Remarks GENERAL: Awake and alert with sats at 89% SKIN: Warm and dry. HEAD: Normocephalic. EYES: No scleral icterus. No injection or drainage. NECK: Supple, trachea midline. No JVD or lymphadenopathy. CARDIOVASCULAR: Irregular rate and rhythm with 2/6 systolic murmur. No rub heard. RESPIRATORY: Breath sounds equal bilaterally but diminished at bases. No accessory muscle use. GASTROINTESTINAL: Abdomen soft, non-tender, nondistended. MUSCULOSKELETAL: No cyanosis, or edema. BACK: Nontender without obvious deformity. No CVA tenderness. Medications and IVs Current Medications Medications (Trade) Dose Ordered Sig/Teresa Route Start Time Stop Time Status Last Admin (NS Flush) 2 ml UNSCH PRN IV FLUSH 11/10/17 04:15 (Lotrisone Cream) 1 applic BID TOPICAL 11/10/17 09:00 11/13/17 08:51 (Percocet 10-325 Mg) 1 tab Q6H PRN PO 11/10/17 06:45 11/13/17 10:54 (Albuterol Neb) 0.63 mg Q6HR NEB PRN NEB 11/10/17 13:45 11/13/17 09:31 Esmolol HCl/ Sodium Chloride 250 ml @ 30.3 mls/hr TITRATE PRN IV 11/11/17 18:00 11/13/17 10:43 (Brevibloc Bolus Inj) 20 mg BOLUS PRN IV PUSH 11/11/17 18:00 (Lanoxin) 0.25 mg DAILY PO 11/12/17 09:00 11/13/17 08:50 (Lopressor) 25 mg Q12HR PO 11/12/17 09:00 11/13/17 08:50 Ceftriaxone Sodium 1000 mg/ Sodium Chloride 100 ml @ 200 mls/hr Q24H IV 11/12/17 08:00 11/13/17 07:37 (Lasix) 40 mg DAILY PO 11/12/17 11:00 11/13/17 08:51 (Lopressor Inj) 2.5 mg Q6H PRN IV PUSH 11/12/17 11:00 ([facility] Nursing Information) Patient in critical care unit? Ass... Q361D .XX 11/12/17 12:15 (Chlorhexidine 2% Cloth) 3 pack DAILY@04 TOPICAL 11/13/17 04:00 11/17/17 04:01 11/13/17 04:00 (Chlorhexidine 2% Cloth) 3 pack UNSCH PRN TOPICAL 11/12/17 12:15 11/17/17 12:10 Assessment and Plan Problem List: (1) UTI (urinary tract infection) ICD Codes: N39.0 - Urinary tract infection, site not specified Status: Acute Plan: Cont antibiotics and follow (2) Atrial flutter with rapid ventricular response ICD Codes: I48.92 - Unspecified atrial flutter Status: Acute Plan: Cards and tester semiconductor packages following and monitoring (3) Pericardial effusion ICD Codes: I31.3 - Pericardial effusion (noninflammatory) Plan: Per Antenna Machine Operator. She is hemodynamically stable at this time. (4) History of congestive heart failure ICD Codes: Z86.79 - Personal history of other diseases of the circulatory system Status: Acute Plan: Cards and Manufacture Specialist are following. Will consult Pulm as her sats are lower today. 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
[2017-11-14] VITALS (23 sets, daily range): BP systolic 128–146; BP diastolic 76–96; PULSE 85–101; RESP 23–30; TEMP 97.7–98.3; O2SAT 86–98
[2017-11-14] MEDS: ESMOLOL DRIP INJ PREMIX 250 ML IV PRN ×3 (04:12→19:27)
[2017-11-14] MEDS: METOPROLOL TARTRATE 25 MG TAB PO SCH ×2 (08:26→19:57)
[2017-11-14] MEDS: DIGOXIN 0.25 MG TAB PO SCH (08:26)
[2017-11-14] MEDS: BETAMETHASONE/CLOTRIMAZOLE CREAM 15 GM TOPICAL SCH ×2 (08:26→19:57)
[2017-11-14] MEDS: FUROSEMIDE 40 MG TAB PO SCH (08:26)
[2017-11-14] MEDS: cefTRIAXone INJ 1,000 MG in SODIUM CHLORIDE 0.9% INJ 100 ML IV SCH (08:26)
--- NOTE | 2017-11-14 09:55 | HHI.PR ---
Subjective Remarks Sitting up in bed eating breakfast No CP,voices Dyspnea at baseline Objective Vital Signs Date Time Temp Pulse Resp B/P (MAP) Pulse Ox O2 Delivery O2 Flow Rate FiO2 11/14/17 06:00 92 11/14/17 04:12 93 140/96 11/14/17 04:00 98 11/14/17 04:00 97.7 98 23 140/96 (111) 92 11/14/17 02:00 89 11/14/17 00:00 96 11/14/17 00:00 98.3 96 25 128/80 (96) 91 11/13/17 22:00 83 11/13/17 20:00 88 11/13/17 20:00 98.1 88 20 127/75 (92) 97 11/13/17 19:54 93 Nasal Cannula 4.00 11/13/17 19:07 100 116/64 11/13/17 18:00 95 11/13/17 16:00 89 11/13/17 16:00 97.6 80 16 120/70 (87) 91 11/13/17 15:00 89 11/13/17 12:00 89 11/13/17 12:00 97.7 90 18 105/55 (72) 97 11/13/17 12:00 18 11/13/17 10:43 94 116/70 11/13/17 10:00 98 I/O 11/13/17 11/13/17 11/13/17 11/14/17 11/14/17 11/14/17 07:00 15:00 23:00 07:00 15:00 23:00 Intake Total 200 ml 600 ml 490 ml Output Total 1000 ml 800 ml 400 ml Balance -800 ml -200 ml 90 ml Intake Oral 200 ml 250 ml 240 ml IV Total 350 ml 250 ml Output Urine Total 1000 ml 800 ml 400 ml # Voids 2 # Bowel Movements 0 1 1 Result Diagram: 11/11/17 0611/11/17600 Procedures Laboratory Tests Test 11/10/17 04:28 11/10/17 04:30 11/10/17 04:50 11/11/17 06:01 Mean Corpuscular Hemoglobin Concent 31.5 % (32.0-36.0) 31.6 % (32.0-36.0) Red Cell Distribution Width 21.4 % (11.6-17.2) 21.4 % (11.6-17.2) Platelet Count 122 TH/MM3 (150-450) 104 TH/MM3 (150-450) Neutrophils (%) (Auto) 75.3 % (16.0-70.0) Monocytes (%) (Auto) 8.6 % (0.0-8.0) 12.2 % (0.0-8.0) Lymphocytes # (Auto) 0.7 TH/MM3 (1.0-4.8) Blood Urea Nitrogen 25 MG/DL (7-18) 21 MG/DL (7-18) Creatinine 0.47 MG/DL (0.50-1.00) Albumin 1.9 GM/DL (3.4-5.0) Alkaline Phosphatase 137 U/L (45-117) Carbon Dioxide Level 35.0 MEQ/L (21.0-32.0) 33.0 MEQ/L (21.0-32.0) Troponin I LESS THAN 0.02 NG/ML B-Type Natriuretic Peptide 142 PG/ML (0-100) Lipase 26 U/L (73-393) Urine Turbidity HAZY (CLEAR) Urine Protein 100 mg/dL (NEG-TRACE) Urine Ketones 10 mg/dL (NEG) Urine Occult Blood MOD (NEG) Urine Nitrite POS (NEG) Urine Urobilinogen 4.0 MG/DL (LESS THAN Urine Leukocyte Esterase LARGE (NEG) Urine RBC 70 /hpf (0-3) Urine WBC Clumps RARE (NONE) Urine Bacteria MANY /hpf (NONE) Urine Mucus FEW /lpf (OCC) Random Glucose 70 MG/DL (74-106) Calcium Level 8.3 MG/DL (8.5-10.1) Objective Remarks GENERAL: Well-developed female, in no apparent distress SKIN: warm and dry, b/l le erythema EYES: No scleral icterus. No injection or drainage. NECK: Supple, trachea midline. No JVD or lymphadenopathy. CARDIOVASCULAR: irregular without murmurs, gallops, or rubs. RESPIRATORY: equal B/L Clear, diminished, no wheezing, rhonchi GASTROINTESTINAL: Abdomen soft, non-tender , nondistended. NEURO: Awake and alert, LOPEZ, normal speech Medications and IVs Current Medications Medications (Trade) Dose Ordered Sig/Teresa Route Start Time Stop Time Status Last Admin (NS Flush) 2 ml UNSCH PRN IV FLUSH 11/10/17 04:15 (Lotrisone Cream) 1 applic BID TOPICAL 11/10/17 09:00 11/14/17 08:26 (Percocet 10-325 Mg) 1 tab Q6H PRN PO 11/10/17 06:45 11/13/17 21:39 (Albuterol Neb) 0.63 mg Q6HR NEB PRN NEB 11/10/17 13:45 11/13/17 19:52 Esmolol HCl/ Sodium Chloride 250 ml @ 30.3 mls/hr TITRATE PRN IV 11/11/17 18:00 11/14/17 04:12 (Brevibloc Bolus Inj) 20 mg BOLUS PRN IV PUSH 11/11/17 18:00 (Lanoxin) 0.25 mg DAILY PO 11/12/17 09:00 11/14/17 08:26 (Lopressor) 25 mg Q12HR PO 11/12/17 09:00 11/14/17 08:26 Ceftriaxone Sodium 1000 mg/ Sodium Chloride 100 ml @ 200 mls/hr Q24H IV 11/12/17 08:00 11/14/17 08:26 (Lasix) 40 mg DAILY PO 11/12/17 11:00 11/14/17 08:26 (Lopressor Inj) 2.5 mg Q6H PRN IV PUSH 11/12/17 11:00 ([facility] Nursing Information) Patient in critical care unit? Ass... Q361D .XX 11/12/17 12:15 11/13/17 21:38 (Chlorhexidine 2% Cloth) 3 pack DAILY@04 TOPICAL 11/13/17 04:00 11/17/17 04:01 11/13/17 21:38 (Chlorhexidine 2% Cloth) 3 pack UNSCH PRN TOPICAL 11/12/17 12:15 11/17/17 12:10 Assessment and Plan Problem List: (1) Atrial flutter with rapid ventricular response ICD Codes: I48.92 - Unspecified atrial flutter Status: Acute Plan: Cont Esmolol, Digoxin, rate control cardiology following. (2) History of COPD ICD Codes: Z87.09 - Personal history of other diseases of the respiratory system Status: Acute Plan: Cont to monitor, bronchodilators, Oxygen supplement sats>92 (3) UTI (urinary tract infection) ICD Codes: N39.0 - Urinary tract infection, site not specified Status: Acute Plan: Culture grew Proteus Mirabilis Sensitive to Rocephin Afebrile Assessment and Plan 11/14/17- Critical care signed off. Still requiring iv Esmolol for rate control.Lovenox for DVT prophylaxis Cardiology following. Rocephin for UTI, Pulmonary consulted over weekend for increase SOB. Problem Qualifiers (1) UTI (urinary tract infection): Senia Wadsworth Nov 14, 2017 09:55
[2017-11-14] MEDS ORDERED: ENOXAPARIN SODIUM 40 MG/0.4 ML SYRINGE SQ SCH (10:00)
[2017-11-14 14:15] LABS: AUTOMATED NEUTROPHIL # 4.8 TH/MM3 (1.8-7.7); BASOPHIL % 0.4 % (0.0-2.0); EOSINOPHIL # 0.1 TH/MM3 (0-0.4); EOSINOPHIL % 1.2 % (0.0-4.0); HEMATOCRIT 46.7 % (35.0-46.0); HEMOGLOBIN 14.9 GM/DL (11.6-15.3); LYMPH % 11.9 % (9.0-44.0); LYMPHOCYTE # 0.7 TH/MM3 (1.0-4.8); MEAN CELL VOLUME 95.4 FL (80.0-100.0); MEAN CORPUSCULAR HEMOGLOBIN 30.5 PG (27.0-34.0); MEAN PLATELET VOLUME 8.6 FL (7.0-11.0); MONO % 7.3 % (0.0-8.0); MONOCYTE # 0.4 TH/MM3 (0-0.9); NEUT % 79.2 % (16.0-70.0); PLATELET COUNT 111 TH/MM3 (150-450); RED CELL DISTRIBUTION WIDTH 19.7 % (11.6-17.2); WHITE BLOOD COUNT 6.1 TH/MM3 (4.0-11.0)
[2017-11-14] MEDS: RESP: ALBUTEROL 0.63 MG/3 ML NEB (PRN) NEB (15:44)
--- NOTE | 2017-11-14 16:27 | PD.CARD.PN ---
Subjective Subjective Remarks No CP or excessive dyspnea. Very inactive, PT started. Still on esmolol for rate control. Objective Medications Current Medications Medications (Trade) Dose Ordered Sig/Teresa Route Start Time Stop Time Status Last Admin (NS Flush) 2 ml UNSCH PRN IV FLUSH 11/10/17 04:15 (Lotrisone Cream) 1 applic BID TOPICAL 11/10/17 09:00 11/14/17 08:26 (Percocet 10-325 Mg) 1 tab Q6H PRN PO 11/10/17 06:45 11/13/17 21:39 (Albuterol Neb) 0.63 mg Q6HR NEB PRN NEB 11/10/17 13:45 11/14/17 15:44 Esmolol HCl/ Sodium Chloride 250 ml @ 30.3 mls/hr TITRATE PRN IV 11/11/17 18:00 11/14/17 12:59 (Brevibloc Bolus Inj) 20 mg BOLUS PRN IV PUSH 11/11/17 18:00 (Lanoxin) 0.25 mg DAILY PO 11/12/17 09:00 11/14/17 08:26 (Lopressor) 25 mg Q12HR PO 11/12/17 09:00 11/14/17 08:26 Ceftriaxone Sodium 1000 mg/ Sodium Chloride 100 ml @ 200 mls/hr Q24H IV 11/12/17 08:00 11/14/17 08:26 (Lasix) 40 mg DAILY PO 11/12/17 11:00 11/14/17 08:26 (Lopressor Inj) 2.5 mg Q6H PRN IV PUSH 11/12/17 11:00 [place] [place] Patient in critical care unit? Ass... Q361D .XX 11/12/17 12:15 11/13/17 21:38 (Chlorhexidine 2% Cloth) 3 pack DAILY@04 TOPICAL 11/13/17 04:00 11/17/17 04:01 11/13/17 21:38 (Chlorhexidine 2% Cloth) 3 pack UNSCH PRN TOPICAL 11/12/17 12:15 11/17/17 12:10 Vital Signs / I&O Vital Signs Date Time Temp Pulse Resp B/P (MAP) Pulse Ox O2 Delivery O2 Flow Rate FiO2 11/14/17 16:00 89 11/14/17 16:00 97.8 89 26 134/78 (96) 86 11/14/17 15:46 97 Nasal Cannula 3.00 11/14/17 15:30 91 152/87 11/14/17 15:00 101 11/14/17 14:00 90 11/14/17 13:00 87 11/14/17 12:59 88 133/76 11/14/17 12:58 88 133/76 11/14/17 12:12 95 11/14/17 12:00 98.0 99 30 133/76 (95) 88 11/14/17 12:00 99 11/14/17 11:00 92 11/14/17 10:00 91 11/14/17 09:00 93 11/14/17 08:00 98.3 89 27 146/93 (110) 91 11/14/17 08:00 89 11/14/17 07:26 93 11/14/17 07:01 90 11/14/17 07:00 91 11/14/17 06:00 92 11/14/17 04:12 93 140/96 11/14/17 04:00 98 11/14/17 04:00 97.7 98 23 140/96 (111) 92 11/14/17 02:00 89 11/14/17 00:00 96 11/14/17 00:00 98.3 96 25 128/80 (96) 91 11/13/17 22:00 83 11/13/17 20:00 88 11/13/17 20:00 98.1 88 20 127/75 (92) 97 11/13/17 19:54 93 Nasal Cannula 4.00 11/13/17 19:07 100 116/64 11/13/17 18:00 95 I/O 11/13/17 11/13/17 11/13/17 11/14/17 11/14/17 11/14/17 07:00 15:00 23:00 07:00 15:00 23:00 Intake Total 200 ml 600 ml 490 ml 350 ml Output Total 1000 ml 800 ml 400 ml Balance -800 ml -200 ml 90 ml 350 ml Intake Oral 200 ml 250 ml 240 ml IV Total 350 ml 250 ml 350 ml Output Urine Total 1000 ml 800 ml 400 ml # Voids 2 # Bowel Movements 0 1 1 Physical Exam GENERAL: In NAD. SKIN: Warm and dry. HEAD: Normocephalic. EYES: No scleral icterus. No injection or drainage. NECK: Supple, trachea midline. No JVD or lymphadenopathy. CARDIOVASCULAR: Irreg, without murmurs, gallops, or rubs. RESPIRATORY: Breath sounds equal bilaterally. No accessory muscle use. GASTROINTESTINAL: Abdomen soft, non-tender, nondistended. MUSCULOSKELETAL: No cyanosis, or edema. Laboratory Laboratory Tests Test 11/14/17 13:28 White Blood Count 6.1 TH/MM3 Red Blood Count 4.90 MIL/MM3 Hemoglobin 14.9 GM/DL Hematocrit 46.7 % Mean Corpuscular Volume 95.4 FL Mean Corpuscular Hemoglobin 30.5 PG Mean Corpuscular Hemoglobin Concent 32.0 % Red Cell Distribution Width 19.7 % Platelet Count 111 TH/MM3 Mean Platelet Volume 8.6 FL Neutrophils (%) (Auto) 79.2 % Lymphocytes (%) (Auto) 11.9 % Monocytes (%) (Auto) 7.3 % Eosinophils (%) (Auto) 1.2 % Basophils (%) (Auto) 0.4 % Neutrophils # (Auto) 4.8 TH/MM3 Lymphocytes # (Auto) 0.7 TH/MM3 Monocytes # (Auto) 0.4 TH/MM3 Eosinophils # (Auto) 0.1 TH/MM3 Basophils # (Auto) 0.0 TH/MM3 CBC Comment DIFF FINAL Differential Comment Assessment and Plan Problem List: (1) Atrial flutter with rapid ventricular response ICD Codes: I48.92 - Unspecified atrial flutter Status: Acute (2) History of COPD ICD Codes: Z87.09 - Personal history of other diseases of the respiratory system Status: Acute (3) Pericardial effusion ICD Codes: I31.3 - Pericardial effusion (noninflammatory) (4) Anemia ICD Codes: D64.9 - Anemia, unspecified (5) DNR no code (do not resuscitate) ICD Codes: Z66 - Do not resuscitate (6) Smoking ICD Codes: F17.200 - Nicotine dependence, unspecified, uncomplicated Assessment and Plan Rate controlled, esmolol still required. Increase metoprolol, continue digoxin, wean esmolol as tolerated. Increase activity, continue PT. D/w pt and family. Danielle Guevara MD Nov 14, 2017 16:27
--- NOTE | 2017-11-14 17:54 | MB ---
cc: Scott Chavez MD DATE: 11/14/2017 REASON FOR CONSULTATION: COPD. HISTORY OF PRESENT ILLNESS: Mrs. Estrada is a 67-year-old female with a known history of COPD, obstructive sleep apnea, admitted with a tachyarrhythmia, felt to be in atrial flutter, followed by Cardiology. The patient has history of obesity post-gastric bypass surgery, acid reflux disease, hypertension and spinal stenosis. The patient was complaining of abdominal pain upon presentation and found to be hypotensive, admitted to the intensive care unit receiving nebulized albuterol and ipratropium. States her shortness of breath is improved. CT scan of the chest without evidence of pulmonary embolism, moderate pericardial effusion, small left pericardial pleural effusion, subsegmental airspace disease. I am asked to see the patient at this time for same. PAST MEDICAL HISTORY: COPD, obstructive sleep apnea, hypertension, obesity, post-gastric bypass, spinal stenosis, history of urinary incontinence, atrial fibrillation, acid reflux disease, migraine headaches. ALLERGIES: SULFA DRUGS. CODEINE. TETANUS TOXOID. MEDICATIONS AT HOME: Fioricet, oxycodone, nebulized albuterol and vitamin tablet. FAMILY HISTORY: Noncontributory. SYSTEMS REVIEW: A 12-point review of systems as per HPI and past history, otherwise negative. PHYSICAL EXAMINATION: GENERAL: The patient is alert. VITAL SIGNS: Oxygen saturation 98% on 3 liters oxygen nasal cannula, pulse 90, temperature 98, blood pressure 130/70. HEENT: Exam unremarkable. Eyes without icterus. NECK: Without adenopathy or thyroid enlargement. Central trachea. CHEST: Decreased breath sounds at bases. CARDIAC: PMI distant. Irregularity noted. ABDOMEN: Lax, bowel sounds audible. EXTREMITIES: No clubbing, cyanosis or edema. LABORATORY DATA: White count is 6.1, hemoglobin 14, hematocrit 46, platelets 111,000. Sodium 142, potassium 4.5, BUN 21, creatinine 0.5. INR 1.1. IMPRESSION: 1. Chronic obstructive pulmonary disease. 2. Respiratory failure, on oxygen therapy. 3. Question pneumonia. Seems more like atelectasis. 4. Abdominal pain, improved. 5. Atrial flutter, followed by Cardiology. 6. Spinal stenosis. 7. Obstructive sleep apnea. PLAN: The patient will be maintained on oxygen therapy as needed, bronchodilators given. Antibiotic therapy has been initiated. We will follow her chest x-ray. Check baseline pulmonary function. We will follow her care along with you. I do thank you for asking me to partake in Mrs. Estrada's care. MD LAMONTE Lawrence/KEN , 05:23 PM , 05:52 PM
[2017-11-15] VITALS (21 sets, daily range): BP systolic 129–160; BP diastolic 63–85; PULSE 76–101; RESP 22–39; TEMP 97.9–98.3; O2SAT 90–98
[2017-11-15] MEDS: CHLORHEXIDINE GLUCONATE 2 % 1 PACK (2 CLOTHS)(taper/protocol) TOPICAL SCH (03:08)
[2017-11-15 06:16] LABS: AUTOMATED NEUTROPHIL # 4.5 TH/MM3 (1.8-7.7); BASOPHIL % 0.5 % (0.0-2.0); EOSINOPHIL # 0.1 TH/MM3 (0-0.4); EOSINOPHIL % 1.1 % (0.0-4.0); HEMATOCRIT 46.5 % (35.0-46.0); HEMOGLOBIN 14.9 GM/DL (11.6-15.3); LYMPH % 10.8 % (9.0-44.0); LYMPHOCYTE # 0.6 TH/MM3 (1.0-4.8); MEAN CELL VOLUME 95.4 FL (80.0-100.0); MEAN CORPUSCULAR HEMOGLOBIN 30.5 PG (27.0-34.0); MEAN PLATELET VOLUME 8.9 FL (7.0-11.0); MONO % 7.7 % (0.0-8.0); MONOCYTE # 0.4 TH/MM3 (0-0.9); NEUT % 79.9 % (16.0-70.0); PLATELET COUNT 94 TH/MM3 (150-450); RED BLOOD COUNT 4.87 MIL/MM3 (4.00-5.30); RED CELL DISTRIBUTION WIDTH 19.5 % (11.6-17.2); WHITE BLOOD COUNT 5.6 TH/MM3 (4.0-11.0)
[2017-11-15 06:33] LABS: BLOOD UREA NITROGEN 9 MG/DL (7-18); CALCIUM 8.3 MG/DL (8.5-10.1); CHLORIDE 91 MEQ/L (98-107); CREATININE 0.35 MG/DL (0.50-1.00); GLOMERULAR FILTRATION RATE 185 ML/MIN (>89); GLUCOSE,RANDOM 86 MG/DL (74-106); SODIUM (NA) 141 MEQ/L (136-145)
[2017-11-15 08:14] LABS: BICARBONATE GREATER THAN 45.0 MEQ/L (21.0-32.0)
[2017-11-15] MEDS: FUROSEMIDE 40 MG TAB PO SCH (08:43)
[2017-11-15] MEDS: DIGOXIN 0.25 MG TAB PO SCH (08:43)
[2017-11-15] MEDS: METOPROLOL TARTRATE 25 MG TAB PO SCH ×2 (08:43→20:46)
[2017-11-15] MEDS: cefTRIAXone INJ 1,000 MG in SODIUM CHLORIDE 0.9% INJ 100 ML IV SCH (08:43)
[2017-11-15] MEDS: BETAMETHASONE/CLOTRIMAZOLE CREAM 15 GM TOPICAL SCH ×2 (08:48→21:00)
--- NOTE | 2017-11-15 15:43 | PD.CARD.PN ---
Subjective Subjective Remarks No CP or excessive dyspnea. Somnolent. Objective Medications Current Medications Medications (Trade) Dose Ordered Sig/Teersa Route Start Time Stop Time Status Last Admin (NS Flush) 2 ml UNSCH PRN IV FLUSH 11/10/17 04:15 (Lotrisone Cream) 1 applic BID TOPICAL 11/10/17 09:00 11/15/17 08:48 (Percocet 10-325 Mg) 1 tab Q6H PRN PO 11/10/17 06:45 11/13/17 21:39 (Albuterol Neb) 0.63 mg Q6HR NEB PRN NEB 11/10/17 13:45 11/14/17 15:44 Esmolol HCl/ Sodium Chloride 250 ml @ 30.3 mls/hr TITRATE PRN IV 11/11/17 18:00 11/14/17 19:27 (Brevibloc Bolus Inj) 20 mg BOLUS PRN IV PUSH 11/11/17 18:00 (Lanoxin) 0.25 mg DAILY PO 11/12/17 09:00 11/15/17 08:43 Ceftriaxone Sodium 1000 mg/ Sodium Chloride 100 ml @ 200 mls/hr Q24H IV 11/12/17 08:00 11/15/17 08:43 (Lasix) 40 mg DAILY PO 11/12/17 11:00 11/15/17 08:43 (Lopressor Inj) 2.5 mg Q6H PRN IV PUSH 11/12/17 11:00 ([facility] [place] Nursing Information) Patient in critical care unit? Ass... Q361D .XX 11/12/17 12:15 11/13/17 21:38 (Chlorhexidine 2% Cloth) 3 pack DAILY@04 TOPICAL 11/13/17 04:00 11/17/17 04:01 11/15/17 03:08 (Chlorhexidine 2% Cloth) 3 pack UNSCH PRN TOPICAL 11/12/17 12:15 11/17/17 12:10 (Lopressor) 50 mg Q12HR PO 11/14/17 21:00 12/14/17 20:59 11/15/17 08:43 Vital Signs / I&O Vital Signs Date Time Temp Pulse Resp B/P (MAP) Pulse Ox O2 Delivery O2 Flow Rate FiO2 11/15/17 15:00 92 11/15/17 14:00 76 11/15/17 13:00 80 11/15/17 12:33 95 45 11/15/17 12:00 98.1 86 22 135/64 (87) 92 11/15/17 12:00 86 11/15/17 11:00 81 11/15/17 10:00 85 11/15/17 09:30 94 40 11/15/17 09:00 101 11/15/17 08:00 98.0 94 23 146/71 (96) 92 11/15/17 08:00 94 11/15/17 07:00 101 11/15/17 06:00 97 11/15/17 04:00 97.9 99 26 160/85 (110) 94 11/15/17 04:00 99 11/15/17 02:00 98 11/15/17 00:00 83 11/15/17 00:00 98.0 83 24 154/68 (96) 90 11/14/17 23:40 77 157/92 11/14/17 22:00 86 11/14/17 21:00 98 Nasal Cannula 3.00 11/14/17 20:00 97.9 93 27 141/76 (97) 90 11/14/17 20:00 93 11/14/17 19:27 101 11/14/17 18:00 93 11/14/17 17:30 82 131/76 11/14/17 17:00 85 11/14/17 16:00 89 11/14/17 16:00 97.8 89 26 134/78 (96) 86 11/14/17 15:46 97 Nasal Cannula 3.00 I/O 11/14/17 11/14/17 11/14/17 11/15/17 11/15/17 11/15/17 07:00 15:00 23:00 07:00 15:00 23:00 Intake Total 490 ml 350 ml 850 ml 400 ml Output Total 400 ml 1202 ml 900 ml Balance 90 ml 350 ml -352 ml -500 ml Intake Oral 240 ml 600 ml 400 ml IV Total 250 ml 350 ml 250 ml Output Urine Total 400 ml 1200 ml 900 ml Stool Total 2 ml # Voids 2 # Bowel Movements 1 1 Physical Exam GENERAL: In NAD, somnolent SKIN: Warm and dry. HEAD: Normocephalic. EYES: No scleral icterus. No injection or drainage. NECK: Supple, trachea midline. No JVD or lymphadenopathy. CARDIOVASCULAR: Irreg, without murmurs, gallops, or rubs. RESPIRATORY: Breath sounds equal bilaterally. No accessory muscle use. GASTROINTESTINAL: Abdomen soft, non-tender, nondistended. MUSCULOSKELETAL: No cyanosis, or edema. Laboratory Laboratory Tests Test 11/14/17 21:15 11/15/17 04:08 11/15/17 09:15 Blood Gas Puncture Site RT RADIAL LT RADIAL Blood Gas Patient Temperature 98.6 98.6 Blood Gas HCO3 53 mmol/L 54 mmol/L Blood Gas Base Excess 25.9 mmol/L 26.7 mmol/L Blood Gas Oxygen Saturation 77 % 91 % Arterial Blood pH 7.39 7.40 Arterial Blood Partial Pressure CO2 89 mmHg 87 mmHg Arterial Blood Partial Pressure O2 49 mmHg 95 mmHg Arterial Blood Oxygen Content 15.6 Vol % 18.7 Vol % Arterial Blood Carboxyhemoglobin 1.7 % 1.5 % Arterial Blood Methemoglobin 2.7 % 2.7 % Blood Gas Hemoglobin 14.5 G/DL 14.5 G/DL Oxygen Delivery Device ROOM AIR NASAL CANNULA Blood Gas Inspired Oxygen 21 % White Blood Count 5.6 TH/MM3 Red Blood Count 4.87 MIL/MM3 Hemoglobin 14.9 GM/DL Hematocrit 46.5 % Mean Corpuscular Volume 95.4 FL Mean Corpuscular Hemoglobin 30.5 PG Mean Corpuscular Hemoglobin Concent 32.0 % Red Cell Distribution Width 19.5 % Platelet Count 94 TH/MM3 Mean Platelet Volume 8.9 FL Neutrophils (%) (Auto) 79.9 % Lymphocytes (%) (Auto) 10.8 % Monocytes (%) (Auto) 7.7 % Eosinophils (%) (Auto) 1.1 % Basophils (%) (Auto) 0.5 % Neutrophils # (Auto) 4.5 TH/MM3 Lymphocytes # (Auto) 0.6 TH/MM3 Monocytes # (Auto) 0.4 TH/MM3 Eosinophils # (Auto) 0.1 TH/MM3 Basophils # (Auto) 0.0 TH/MM3 CBC Comment AUTO DIFF Differential Comment AUTO DIFF CONFIRMED Platelet Estimate LOW Platelet Morphology Comment NORMAL Blood Urea Nitrogen 9 MG/DL Creatinine 0.35 MG/DL Random Glucose 86 MG/DL Calcium Level 8.3 MG/DL Sodium Level 141 MEQ/L Potassium Level 3.8 MEQ/L Chloride Level 91 MEQ/L Carbon Dioxide Level GREATER THAN 45.0 MEQ/L Anion Gap 5 MEQ/L Estimat Glomerular Filtration Rate 185 ML/MIN Blood Gas Liter Flow 4 L/M Assessment and Plan Problem List: (1) Atrial flutter with rapid ventricular response ICD Codes: I48.92 - Unspecified atrial flutter Status: Acute (2) History of COPD ICD Codes: Z87.09 - Personal history of other diseases of the respiratory system Status: Acute (3) Pericardial effusion ICD Codes: I31.3 - Pericardial effusion (noninflammatory) (4) Anemia ICD Codes: D64.9 - Anemia, unspecified (5) Smoking ICD Codes: F17.200 - Nicotine dependence, unspecified, uncomplicated Assessment and Plan Rate better controlled off esmolol. Continue and titrate metoprolol as needed, continue digoxin. Somnolent, hypercapneic, pulmonary eval/mgmt in progress. Increase activity, continue PT. Danielle Guevara MD Nov 15, 2017 15:43
--- NOTE | 2017-11-15 18:58 | HHI.PR ---
Subjective Remarks alert no distress Objective Vital Signs Date Time Temp Pulse Resp B/P (MAP) Pulse Ox O2 Delivery O2 Flow Rate FiO2 11/15/17 18:00 86 11/15/17 16:29 94 Nasal Cannula 4.00 11/15/17 16:00 87 11/15/17 16:00 98.0 87 39 132/63 (86) 93 11/15/17 15:00 92 11/15/17 14:00 76 11/15/17 13:00 80 11/15/17 12:33 95 45 11/15/17 12:00 98.1 86 22 135/64 (87) 92 11/15/17 12:00 86 11/15/17 11:00 81 11/15/17 10:00 85 11/15/17 09:30 94 40 11/15/17 09:00 101 11/15/17 08:00 98.0 94 23 146/71 (96) 92 11/15/17 08:00 94 11/15/17 07:00 101 11/15/17 06:00 97 11/15/17 04:00 97.9 99 26 160/85 (110) 94 11/15/17 04:00 99 11/15/17 02:00 98 11/15/17 00:00 83 11/15/17 00:00 98.0 83 24 154/68 (96) 90 11/14/17 23:40 77 157/92 11/14/17 22:00 86 11/14/17 21:00 98 Nasal Cannula 3.00 11/14/17 20:00 97.9 93 27 141/76 (97) 90 11/14/17 20:00 93 11/14/17 19:27 101 I/O 11/14/17 11/14/17 11/14/17 11/15/17 11/15/17 11/15/17 07:00 15:00 23:00 07:00 15:00 23:00 Intake Total 490 ml 350 ml 850 ml 400 ml Output Total 400 ml 1202 ml 900 ml Balance 90 ml 350 ml -352 ml -500 ml Intake Oral 240 ml 600 ml 400 ml IV Total 250 ml 350 ml 250 ml Output Urine Total 400 ml 1200 ml 900 ml Stool Total 2 ml # Voids 2 # Bowel Movements 1 1 Result Diagram: 11/15/1740711/15/17407 Procedures Laboratory Tests Test 11/10/17 04:28 11/10/17 04:30 11/10/17 04:50 11/11/17 06:01 Mean Corpuscular Hemoglobin Concent 31.5 % (32.0-36.0) 31.6 % (32.0-36.0) Red Cell Distribution Width 21.4 % (11.6-17.2) 21.4 % (11.6-17.2) Platelet Count 122 TH/MM3 (150-450) 104 TH/MM3 (150-450) Neutrophils (%) (Auto) 75.3 % (16.0-70.0) Monocytes (%) (Auto) 8.6 % (0.0-8.0) 12.2 % (0.0-8.0) Lymphocytes # (Auto) 0.7 TH/MM3 (1.0-4.8) Blood Urea Nitrogen 25 MG/DL (7-18) 21 MG/DL (7-18) Creatinine 0.47 MG/DL (0.50-1.00) Albumin 1.9 GM/DL (3.4-5.0) Alkaline Phosphatase 137 U/L (45-117) Carbon Dioxide Level 35.0 MEQ/L (21.0-32.0) 33.0 MEQ/L (21.0-32.0) Troponin I LESS THAN 0.02 NG/ML B-Type Natriuretic Peptide 142 PG/ML (0-100) Lipase 26 U/L (73-393) Urine Turbidity HAZY (CLEAR) Urine Protein 100 mg/dL (NEG-TRACE) Urine Ketones 10 mg/dL (NEG) Urine Occult Blood MOD (NEG) Urine Nitrite POS (NEG) Urine Urobilinogen 4.0 MG/DL (LESS THAN Urine Leukocyte Esterase LARGE (NEG) Urine RBC 70 /hpf (0-3) Urine WBC Clumps RARE (NONE) Urine Bacteria MANY /hpf (NONE) Urine Mucus FEW /lpf (OCC) Random Glucose 70 MG/DL (74-106) Calcium Level 8.3 MG/DL (8.5-10.1) Objective Remarks GENERAL: SKIN: Warm and dry. HEAD: Atraumatic. Normocephalic. EYES: Pupils equal and round. No scleral icterus. No injection or drainage. ENT: No nasal bleeding or discharge. Mucous membranes pink and moist. NECK: Trachea midline. No JVD. CARDIOVASCULAR: Regular rate and rhythm. RESPIRATORY: No accessory muscle use. Clear to auscultation. Breath sounds equal bilaterally. GASTROINTESTINAL: Abdomen soft, non-tender, nondistended. Hepatic and splenic margins not palpable. MUSCULOSKELETAL: Extremities without clubbing, cyanosis, or edema. No obvious deformities. NEUROLOGICAL: Awake and alert. No obvious cranial nerve deficits. Motor grossly within normal limits. Five out of 5 muscle strength in the arms and legs. Normal speech. PSYCHIATRIC: Appropriate mood and affect; insight and judgment normal. Assessment and Plan Assessment and Plan Vital Signs Date Time Temp Pulse Resp B/P (MAP) Pulse Ox O2 Delivery O2 Flow Rate FiO2 11/15/17 18:00 86 11/15/17 16:29 94 Nasal Cannula 4.00 11/15/17 16:00 87 11/15/17 16:00 98.0 87 39 132/63 (86) 93 11/15/17 15:00 92 11/15/17 14:00 76 11/15/17 13:00 80 11/15/17 12:33 95 45 11/15/17 12:00 98.1 86 22 135/64 (87) 92 11/15/17 12:00 86 11/15/17 11:00 81 11/15/17 10:00 85 11/15/17 09:30 94 40 11/15/17 09:00 101 11/15/17 08:00 98.0 94 23 146/71 (96) 92 11/15/17 08:00 94 11/15/17 07:00 101 11/15/17 06:00 97 11/15/17 04:00 97.9 99 26 160/85 (110) 94 11/15/17 04:00 99 11/15/17 02:00 98 11/15/17 00:00 83 11/15/17 00:00 98.0 83 24 154/68 (96) 90 11/14/17 23:40 77 157/92 11/14/17 22:00 86 11/14/17 21:00 98 Nasal Cannula 3.00 11/14/17 20:00 97.9 93 27 141/76 (97) 90 11/14/17 20:00 93 11/14/17 19:27 101 GENERAL: SKIN: Warm and dry. HEAD: Atraumatic. Normocephalic. EYES: Pupils equal and round. No scleral icterus. No injection or drainage. ENT: No nasal bleeding or discharge. Mucous membranes pink and moist. NECK: Trachea midline. No JVD. CARDIOVASCULAR: Regular rate and rhythm. RESPIRATORY: No accessory muscle use. Clear to auscultation. Breath sounds equal bilaterally. GASTROINTESTINAL: Abdomen soft, non-tender, nondistended. Hepatic and splenic margins not palpable. MUSCULOSKELETAL: Extremities without clubbing, cyanosis, or edema. No obvious deformities. NEUROLOGICAL: Awake and alert. No obvious cranial nerve deficits. Motor grossly within normal limits. Five out of 5 muscle strength in the arms and legs. Normal speech. PSYCHIATRIC: Appropriate mood and affect; insight and judgment normal. Scott Chavez MD Nov 15, 2017 18:58
--- NOTE | 2017-11-15 21:00 | HHI.PR ---
Subjective Remarks Late entry seen earlier this am Somnolent on NC 4L Off Iv esmolol Objective Vital Signs Date Time Temp Pulse Resp B/P (MAP) Pulse Ox O2 Delivery O2 Flow Rate FiO2 11/15/17 18:00 86 11/15/17 16:29 94 Nasal Cannula 4.00 11/15/17 16:00 87 11/15/17 16:00 98.0 87 39 132/63 (86) 93 11/15/17 15:00 92 11/15/17 14:00 76 11/15/17 13:00 80 11/15/17 12:33 95 45 11/15/17 12:00 98.1 86 22 135/64 (87) 92 11/15/17 12:00 86 11/15/17 11:00 81 11/15/17 10:00 85 11/15/17 09:30 94 40 11/15/17 09:00 101 11/15/17 08:00 98.0 94 23 146/71 (96) 92 11/15/17 08:00 94 11/15/17 07:00 101 11/15/17 06:00 97 11/15/17 04:00 97.9 99 26 160/85 (110) 94 11/15/17 04:00 99 11/15/17 02:00 98 11/15/17 00:00 83 11/15/17 00:00 98.0 83 24 154/68 (96) 90 11/14/17 23:40 77 157/92 11/14/17 22:00 86 11/14/17 21:00 98 Nasal Cannula 3.00 I/O 11/14/17 11/14/17 11/14/17 11/15/17 11/15/17 11/15/17 07:00 15:00 23:00 07:00 15:00 23:00 Intake Total 490 ml 350 ml 850 ml 400 ml 100 ml 150 ml Output Total 400 ml 1202 ml 900 ml 1502 ml Balance 90 ml 350 ml -352 ml -500 ml 100 ml -1352 ml Intake Oral 240 ml 600 ml 400 ml 150 ml IV Total 250 ml 350 ml 250 ml 100 ml Output Urine Total 400 ml 1200 ml 900 ml 1500 ml Stool Total 2 ml 2 ml # Voids 2 # Bowel Movements 1 1 Result Diagram: 11/15/1740711/15/17407 Procedures Laboratory Tests Test 11/10/17 04:28 11/10/17 04:30 11/10/17 04:50 11/11/17 06:01 Mean Corpuscular Hemoglobin Concent 31.5 % (32.0-36.0) 31.6 % (32.0-36.0) Red Cell Distribution Width 21.4 % (11.6-17.2) 21.4 % (11.6-17.2) Platelet Count 122 TH/MM3 (150-450) 104 TH/MM3 (150-450) Neutrophils (%) (Auto) 75.3 % (16.0-70.0) Monocytes (%) (Auto) 8.6 % (0.0-8.0) 12.2 % (0.0-8.0) Lymphocytes # (Auto) 0.7 TH/MM3 (1.0-4.8) Blood Urea Nitrogen 25 MG/DL (7-18) 21 MG/DL (7-18) Creatinine 0.47 MG/DL (0.50-1.00) Albumin 1.9 GM/DL (3.4-5.0) Alkaline Phosphatase 137 U/L (45-117) Carbon Dioxide Level 35.0 MEQ/L (21.0-32.0) 33.0 MEQ/L (21.0-32.0) Troponin I LESS THAN 0.02 NG/ML B-Type Natriuretic Peptide 142 PG/ML (0-100) Lipase 26 U/L (73-393) Urine Turbidity HAZY (CLEAR) Urine Protein 100 mg/dL (NEG-TRACE) Urine Ketones 10 mg/dL (NEG) Urine Occult Blood MOD (NEG) Urine Nitrite POS (NEG) Urine Urobilinogen 4.0 MG/DL (LESS THAN Urine Leukocyte Esterase LARGE (NEG) Urine RBC 70 /hpf (0-3) Urine WBC Clumps RARE (NONE) Urine Bacteria MANY /hpf (NONE) Urine Mucus FEW /lpf (OCC) Random Glucose 70 MG/DL (74-106) Calcium Level 8.3 MG/DL (8.5-10.1) Objective Remarks GENERAL: Well-developed female, sleepy in no distress SKIN: warm and dry, b/l le erythema EYES: No scleral icterus. No injection or drainage. NECK: Supple, trachea midline. No JVD or lymphadenopathy. CARDIOVASCULAR: irregular without murmurs, gallops, or rubs. RESPIRATORY: equal B/L Clear, diminished, no wheezing, rhonchi GASTROINTESTINAL: Abdomen soft, non-tender , nondistended. Medications and IVs Current Medications Medications (Trade) Dose Ordered Sig/Teresa Route Start Time Stop Time Status Last Admin (NS Flush) 2 ml UNSCH PRN IV FLUSH 11/10/17 04:15 (Lotrisone Cream) 1 applic BID TOPICAL 11/10/17 09:00 11/15/17 08:48 (Percocet 10-325 Mg) 1 tab Q6H PRN PO 11/10/17 06:45 11/13/17 21:39 (Albuterol Neb) 0.63 mg Q6HR NEB PRN NEB 11/10/17 13:45 11/14/17 15:44 Esmolol HCl/ Sodium Chloride 250 ml @ 30.3 mls/hr TITRATE PRN IV 11/11/17 18:00 11/14/17 19:27 (Brevibloc Bolus Inj) 20 mg BOLUS PRN IV PUSH 11/11/17 18:00 (Lanoxin) 0.25 mg DAILY PO 11/12/17 09:00 11/15/17 08:43 Ceftriaxone Sodium 1000 mg/ Sodium Chloride 100 ml @ 200 mls/hr Q24H IV 11/12/17 08:00 11/15/17 08:43 (Lasix) 40 mg DAILY PO 11/12/17 11:00 11/15/17 08:43 (Lopressor Inj) 2.5 mg Q6H PRN IV PUSH 11/12/17 11:00 ([facility] [place] Nursing Information) Patient in critical care unit? Ass... Q361D .XX 11/12/17 12:15 11/13/17 21:38 (Chlorhexidine 2% Cloth) 3 pack DAILY@04 TOPICAL 11/13/17 04:00 11/17/17 04:01 11/15/17 03:08 (Chlorhexidine 2% Cloth) 3 pack UNSCH PRN TOPICAL 11/12/17 12:15 11/17/17 12:10 (Lopressor) 50 mg Q12HR PO 11/14/17 21:00 12/14/17 20:59 11/15/17 08:43 Assessment and Plan Problem List: (1) Atrial flutter with rapid ventricular response ICD Codes: I48.92 - Unspecified atrial flutter Status: Acute Plan: Cont Esmolol, Digoxin, rate control cardiology following. (2) History of COPD ICD Codes: Z87.09 - Personal history of other diseases of the respiratory system Status: Acute Plan: Cont to monitor, bronchodilators, Oxygen supplement sats>92 (3) UTI (urinary tract infection) ICD Codes: N39.0 - Urinary tract infection, site not specified Status: Acute Plan: Culture grew Proteus Mirabilis Sensitive to Rocephin Afebrile Assessment and Plan 11/14/17- Critical care signed off. Still requiring iv Esmolol for rate control.Lovenox for DVT prophylaxis Cardiology following. Rocephin for UTI, Pulmonary consulted over weekend for increase SOB. 11/15/17- Somnolent this am, Requiring Bipap at times. Pulmonary following, Cont Bronchodilators, and oxygen supplement. She is a NO code, no intubation. Taken off of Esmolol, rate controlled. currently not on anticoagulation, plt trending down, cardiology appreciated. Problem Qualifiers (1) UTI (urinary tract infection): Senia Wadsworth Nov 15, 2017 21:00
[2017-11-16] VITALS (16 sets, daily range): BP systolic 105–160; BP diastolic 52–80; PULSE 71–100; RESP 21–51; TEMP 97.3–98; O2SAT 93–98
[2017-11-16] MEDS: CHLORHEXIDINE GLUCONATE 2 % 1 PACK (2 CLOTHS)(taper/protocol) TOPICAL SCH (04:00)
--- NOTE | 2017-11-16 07:49 | HHI.PR ---
Subjective Remarks Awake alert this am, Dyspneic with conversation. She voices she was just taken off Bipap No CP Objective Vital Signs Date Time Temp Pulse Resp B/P (MAP) Pulse Ox O2 Delivery O2 Flow Rate FiO2 11/16/17 06:00 92 11/16/17 05:18 98 60 11/16/17 04:00 76 11/16/17 04:00 97.5 76 41 124/63 (83) 95 11/16/17 02:00 71 11/16/17 01:43 94 60 11/16/17 00:00 78 11/16/17 00:00 98.0 78 21 132/62 (85) 95 11/15/17 22:00 82 11/15/17 21:19 97 Nasal Cannula 4.00 11/15/17 20:00 98.3 88 39 129/77 (94) 98 11/15/17 20:00 88 11/15/17 18:00 86 11/15/17 16:29 94 Nasal Cannula 4.00 11/15/17 16:00 87 11/15/17 16:00 98.0 87 39 132/63 (86) 93 11/15/17 15:00 92 11/15/17 14:00 76 11/15/17 13:00 80 11/15/17 12:33 95 45 11/15/17 12:00 98.1 86 22 135/64 (87) 92 11/15/17 12:00 86 11/15/17 11:00 81 11/15/17 10:00 85 11/15/17 09:30 94 40 11/15/17 09:00 101 11/15/17 08:00 98.0 94 23 146/71 (96) 92 11/15/17 08:00 94 I/O 11/15/17 11/15/17 11/15/17 11/16/17 11/16/17 11/16/17 07:00 15:00 23:00 07:00 15:00 23:00 Intake Total 400 ml 100 ml 150 ml 200 ml Output Total 900 ml 1502 ml 1000 ml Balance -500 ml 100 ml -1352 ml -800 ml Intake Oral 400 ml 150 ml 200 ml IV Total 100 ml Output Urine Total 900 ml 1500 ml 1000 ml Stool Total 2 ml 0 ml # Bowel Movements 1 Result Diagram: 11/15/17 0408 11/15/17 0408 Procedures Laboratory Tests Test 11/10/17 04:28 11/10/17 04:30 11/10/17 04:50 11/11/17 06:01 Mean Corpuscular Hemoglobin Concent 31.5 % (32.0-36.0) 31.6 % (32.0-36.0) Red Cell Distribution Width 21.4 % (11.6-17.2) 21.4 % (11.6-17.2) Platelet Count 122 TH/MM3 (150-450) 104 TH/MM3 (150-450) Neutrophils (%) (Auto) 75.3 % (16.0-70.0) Monocytes (%) (Auto) 8.6 % (0.0-8.0) 12.2 % (0.0-8.0) Lymphocytes # (Auto) 0.7 TH/MM3 (1.0-4.8) Blood Urea Nitrogen 25 MG/DL (7-18) 21 MG/DL (7-18) Creatinine 0.47 MG/DL (0.50-1.00) Albumin 1.9 GM/DL (3.4-5.0) Alkaline Phosphatase 137 U/L (45-117) Carbon Dioxide Level 35.0 MEQ/L (21.0-32.0) 33.0 MEQ/L (21.0-32.0) Troponin I LESS THAN 0.02 NG/ML B-Type Natriuretic Peptide 142 PG/ML (0-100) Lipase 26 U/L (73-393) Urine Turbidity HAZY (CLEAR) Urine Protein 100 mg/dL (NEG-TRACE) Urine Ketones 10 mg/dL (NEG) Urine Occult Blood MOD (NEG) Urine Nitrite POS (NEG) Urine Urobilinogen 4.0 MG/DL (LESS THAN Urine Leukocyte Esterase LARGE (NEG) Urine RBC 70 /hpf (0-3) Urine WBC Clumps RARE (NONE) Urine Bacteria MANY /hpf (NONE) Urine Mucus FEW /lpf (OCC) Random Glucose 70 MG/DL (74-106) Calcium Level 8.3 MG/DL (8.5-10.1) Objective Remarks GENERAL: Well-developed female, awake alert in no distress SKIN: warm and dry, b/l le erythema trace edema EYES: No scleral icterus. No injection or drainage. NECK: Supple, trachea midline. No JVD or lymphadenopathy. CARDIOVASCULAR: irregular without murmurs, gallops, or rubs. RESPIRATORY: equal B/L Clear, diminished, no wheezing, rhonchi GASTROINTESTINAL: Abdomen soft, non-tender , nondistended. Medications and IVs Current Medications Medications (Trade) Dose Ordered Sig/Teresa Route Start Time Stop Time Status Last Admin (NS Flush) 2 ml UNSCH PRN IV FLUSH 11/10/17 04:15 (Lotrisone Cream) 1 applic BID TOPICAL 11/10/17 09:00 11/15/17 21:00 (Percocet 10-325 Mg) 1 tab Q6H PRN PO 11/10/17 06:45 11/13/17 21:39 (Albuterol Neb) 0.63 mg Q6HR NEB PRN NEB 11/10/17 13:45 11/14/17 15:44 Esmolol HCl/ Sodium Chloride 250 ml @ 30.3 mls/hr TITRATE PRN IV 11/11/17 18:00 11/14/17 19:27 (Brevibloc Bolus Inj) 20 mg BOLUS PRN IV PUSH 11/11/17 18:00 (Lanoxin) 0.25 mg DAILY PO 11/12/17 09:00 11/15/17 08:43 Ceftriaxone Sodium 1000 mg/ Sodium Chloride 100 ml @ 200 mls/hr Q24H IV 11/12/17 08:00 11/15/17 08:43 (Lasix) 40 mg DAILY PO 11/12/17 11:00 11/15/17 08:43 (Lopressor Inj) 2.5 mg Q6H PRN IV PUSH 11/12/17 11:00 [place] [place] Patient in critical care unit? Ass... Q361D .XX 11/12/17 12:15 11/13/17 21:38 (Chlorhexidine 2% Cloth) 3 pack DAILY@04 TOPICAL 11/13/17 04:00 11/17/17 04:01 11/16/17 04:00 (Chlorhexidine 2% Cloth) 3 pack UNSCH PRN TOPICAL 11/12/17 12:15 11/17/17 12:10 (Lopressor) 50 mg Q12HR PO 11/14/17 21:00 12/14/17 20:59 11/15/17 20:46 Assessment and Plan Problem List: (1) Atrial flutter with rapid ventricular response ICD Codes: I48.92 - Unspecified atrial flutter Status: Acute Plan: Cont Esmolol, Digoxin, rate control cardiology following. (2) History of COPD ICD Codes: Z87.09 - Personal history of other diseases of the respiratory system Status: Acute Plan: Cont to monitor, bronchodilators, Oxygen supplement sats>92 (3) UTI (urinary tract infection) ICD Codes: N39.0 - Urinary tract infection, site not specified Status: Acute Plan: Culture grew Proteus Mirabilis Sensitive to Rocephin Afebrile Assessment and Plan 11/14/17- Critical care signed off. Still requiring iv Esmolol for rate control.Lovenox for DVT prophylaxis Cardiology following. Rocephin for UTI, Pulmonary consulted over weekend for increase SOB. 11/15/17- Somnolent this am, Requiring Bipap at times. Pulmonary following, Cont Bronchodilators, and oxygen supplement. She is a NO code, no intubation. Taken off of Esmolol, rate controlled. currently not on anticoagulation, plt trending down, cardiology appreciated. 11/16/17 Awake and alert this am, She voices she was just taken off Bipap. Pulmonary following, Cont bronchodilators. HR controlled with PO Lopressor and digoxin. Rocephin for UTI culture grew Proteus Mirabilis. PT consult for increased activity Problem Qualifiers (1) UTI (urinary tract infection): Senia Wadsworth Nov 16, 2017 07:49
[2017-11-16] MEDS: BETAMETHASONE/CLOTRIMAZOLE CREAM 15 GM TOPICAL SCH ×2 (09:04→21:00)
[2017-11-16] MEDS: cefTRIAXone INJ 1,000 MG in SODIUM CHLORIDE 0.9% INJ 100 ML IV SCH (09:04)
[2017-11-16] MEDS: DIGOXIN 0.25 MG TAB PO SCH (09:04)
[2017-11-16] MEDS: FUROSEMIDE 40 MG TAB PO SCH (09:04)
[2017-11-16] MEDS: METOPROLOL TARTRATE 25 MG TAB PO SCH ×2 (09:04→20:00)
[2017-11-16] MEDS: oxyCODONE/ACETAMINOPHEN 10 MG/325 MG TAB PO PRN ×2 (13:15→20:00)
[2017-11-16 13:37] LABS: BICARBONATE GREATER THAN 45.0 MEQ/L (21.0-32.0); BLOOD UREA NITROGEN 8 MG/DL (7-18); CALCIUM 8.6 MG/DL (8.5-10.1); CHLORIDE 89 MEQ/L (98-107); CREATININE 0.37 MG/DL (0.50-1.00); GLOMERULAR FILTRATION RATE 173 ML/MIN (>89); GLUCOSE,RANDOM 76 MG/DL (74-106); SODIUM (NA) 143 MEQ/L (136-145)
--- NOTE | 2017-11-16 15:34 | PD.CARD.PN ---
Subjective Subjective Remarks No CP or excessive dyspnea. Feels better. More awake. Objective Medications Current Medications Medications (Trade) Dose Ordered Sig/Teresa Route Start Time Stop Time Status Last Admin (NS Flush) 2 ml UNSCH PRN IV FLUSH 11/10/17 04:15 (Lotrisone Cream) 1 applic BID TOPICAL 11/10/17 09:00 11/16/17 09:04 (Percocet 10-325 Mg) 1 tab Q6H PRN PO 11/10/17 06:45 11/16/17 13:15 (Albuterol Neb) 0.63 mg Q6HR NEB PRN NEB 11/10/17 13:45 11/14/17 15:44 Esmolol HCl/ Sodium Chloride 250 ml @ 30.3 mls/hr TITRATE PRN IV 11/11/17 18:00 11/14/17 19:27 (Brevibloc Bolus Inj) 20 mg BOLUS PRN IV PUSH 11/11/17 18:00 (Lanoxin) 0.25 mg DAILY PO 11/12/17 09:00 11/16/17 09:04 Ceftriaxone Sodium 1000 mg/ Sodium Chloride 100 ml @ 200 mls/hr Q24H IV 11/12/17 08:00 11/16/17 09:04 (Lasix) 40 mg DAILY PO 11/12/17 11:00 11/16/17 09:04 (Lopressor Inj) 2.5 mg Q6H PRN IV PUSH 11/12/17 11:00 ([facility] [place] Nursing Information) Patient in critical care unit? Ass... Q361D .XX 11/12/17 12:15 11/13/17 21:38 (Chlorhexidine 2% Cloth) 3 pack DAILY@04 TOPICAL 11/13/17 04:00 11/17/17 04:01 11/16/17 04:00 (Chlorhexidine 2% Cloth) 3 pack UNSCH PRN TOPICAL 11/12/17 12:15 11/17/17 12:10 (Lopressor) 50 mg Q12HR PO 11/14/17 21:00 12/14/17 20:59 11/16/17 09:04 Vital Signs / I&O Vital Signs Date Time Temp Pulse Resp B/P (MAP) Pulse Ox O2 Delivery O2 Flow Rate FiO2 11/16/17 12:00 86 11/16/17 12:00 97.4 86 27 160/80 (106) 11/16/17 10:00 86 11/16/17 09:50 93 Nasal Cannula 4.00 11/16/17 08:00 97.3 98 51 138/73 (94) 93 11/16/17 08:00 98 11/16/17 06:00 92 11/16/17 05:18 98 60 11/16/17 04:00 76 11/16/17 04:00 97.5 76 41 124/63 (83) 95 11/16/17 02:00 71 11/16/17 01:43 94 60 11/16/17 00:00 78 11/16/17 00:00 98.0 78 21 132/62 (85) 95 11/15/17 22:00 82 11/15/17 21:19 97 Nasal Cannula 4.00 11/15/17 20:00 98.3 88 39 129/77 (94) 98 11/15/17 20:00 88 11/15/17 18:00 86 11/15/17 16:29 94 Nasal Cannula 4.00 11/15/17 16:00 87 11/15/17 16:00 98.0 87 39 132/63 (86) 93 I/O 11/15/17 11/15/17 11/15/17 11/16/17 11/16/17 11/16/17 07:00 15:00 23:00 07:00 15:00 23:00 Intake Total 400 ml 100 ml 150 ml 200 ml Output Total 900 ml 1502 ml 1000 ml Balance -500 ml 100 ml -1352 ml -800 ml Intake Oral 400 ml 150 ml 200 ml IV Total 100 ml Output Urine Total 900 ml 1500 ml 1000 ml Stool Total 2 ml 0 ml # Bowel Movements 1 Physical Exam GENERAL: In NAD. SKIN: Warm and dry. HEAD: Normocephalic. EYES: No scleral icterus. No injection or drainage. NECK: Supple, trachea midline. No JVD or lymphadenopathy. CARDIOVASCULAR: Irreg, without murmurs, gallops, or rubs. RESPIRATORY: Breath sounds equal bilaterally. No accessory muscle use. GASTROINTESTINAL: Abdomen soft, non-tender, nondistended. MUSCULOSKELETAL: No cyanosis, trace edema. Laboratory Laboratory Tests Test 11/16/17 12:33 Blood Urea Nitrogen 8 MG/DL Creatinine 0.37 MG/DL Random Glucose 76 MG/DL Calcium Level 8.6 MG/DL Sodium Level 143 MEQ/L Potassium Level 3.2 MEQ/L Chloride Level 89 MEQ/L Carbon Dioxide Level GREATER THAN 45.0 MEQ/L Anion Gap 9 MEQ/L Estimat Glomerular Filtration Rate 173 ML/MIN Assessment and Plan Problem List: (1) Atrial flutter with rapid ventricular response ICD Codes: I48.92 - Unspecified atrial flutter Status: Acute (2) History of COPD ICD Codes: Z87.09 - Personal history of other diseases of the respiratory system Status: Acute (3) Pericardial effusion ICD Codes: I31.3 - Pericardial effusion (noninflammatory) (4) Anemia ICD Codes: D64.9 - Anemia, unspecified (5) Smoking ICD Codes: F17.200 - Nicotine dependence, unspecified, uncomplicated Assessment and Plan Rate now well controlled with PO meds. Continue metoprolol and digoxin. High risk of CVA with chronic a fib. Will start anticoagulation with Eliquis. Pulmonary eval/mgmt in progress. Increase activity, continue PT. Danielle Guevara MD Nov 16, 2017 15:34
[2017-11-16] MEDS ORDERED: POTASSIUM CHLORIDE 10 MEQ CONTROLLED RELEASE TAB PO ONE (18:15)
--- NOTE | 2017-11-16 19:05 | HHI.PR ---
Subjective Remarks Feels better today. On o2 at 3 L. HR controlled. Less wheezing and no fever. Objective Vital Signs Date Time Temp Pulse Resp B/P (MAP) Pulse Ox O2 Delivery O2 Flow Rate FiO2 11/16/17 16:00 97.9 95 21 160/66 (97) 96 11/16/17 16:00 95 11/16/17 14:15 22 11/16/17 14:00 100 11/16/17 12:00 86 11/16/17 12:00 97.4 86 27 160/80 (106) 11/16/17 10:00 86 11/16/17 09:50 93 Nasal Cannula 4.00 11/16/17 08:00 97.3 98 51 138/73 (94) 93 11/16/17 08:00 98 11/16/17 06:00 92 11/16/17 05:18 98 60 11/16/17 04:00 76 11/16/17 04:00 97.5 76 41 124/63 (83) 95 11/16/17 02:00 71 11/16/17 01:43 94 60 11/16/17 00:00 78 11/16/17 00:00 98.0 78 21 132/62 (85) 95 11/15/17 22:00 82 11/15/17 21:19 97 Nasal Cannula 4.00 11/15/17 20:00 98.3 88 39 129/77 (94) 98 11/15/17 20:00 88 I/O 11/15/17 11/15/17 11/15/17 11/16/17 11/16/17 11/16/17 07:00 15:00 23:00 07:00 15:00 23:00 Intake Total 400 ml 100 ml 150 ml 200 ml 750 ml Output Total 900 ml 1502 ml 1000 ml 1500 ml Balance -500 ml 100 ml -1352 ml -800 ml -750 ml Intake Oral 400 ml 150 ml 200 ml 750 ml IV Total 100 ml Output Urine Total 900 ml 1500 ml 1000 ml 1500 ml Stool Total 2 ml 0 ml # Bowel Movements 1 3 Result Diagram: 11/15/17 0408 11/16/17 1233 Procedures Laboratory Tests Test 11/10/17 04:28 11/10/17 04:30 11/10/17 04:50 11/11/17 06:01 Mean Corpuscular Hemoglobin Concent 31.5 % (32.0-36.0) 31.6 % (32.0-36.0) Red Cell Distribution Width 21.4 % (11.6-17.2) 21.4 % (11.6-17.2) Platelet Count 122 TH/MM3 (150-450) 104 TH/MM3 (150-450) Neutrophils (%) (Auto) 75.3 % (16.0-70.0) Monocytes (%) (Auto) 8.6 % (0.0-8.0) 12.2 % (0.0-8.0) Lymphocytes # (Auto) 0.7 TH/MM3 (1.0-4.8) Blood Urea Nitrogen 25 MG/DL (7-18) 21 MG/DL (7-18) Creatinine 0.47 MG/DL (0.50-1.00) Albumin 1.9 GM/DL (3.4-5.0) Alkaline Phosphatase 137 U/L (45-117) Carbon Dioxide Level 35.0 MEQ/L (21.0-32.0) 33.0 MEQ/L (21.0-32.0) Troponin I LESS THAN 0.02 NG/ML B-Type Natriuretic Peptide 142 PG/ML (0-100) Lipase 26 U/L (73-393) Urine Turbidity HAZY (CLEAR) Urine Protein 100 mg/dL (NEG-TRACE) Urine Ketones 10 mg/dL (NEG) Urine Occult Blood MOD (NEG) Urine Nitrite POS (NEG) Urine Urobilinogen 4.0 MG/DL (LESS THAN Urine Leukocyte Esterase LARGE (NEG) Urine RBC 70 /hpf (0-3) Urine WBC Clumps RARE (NONE) Urine Bacteria MANY /hpf (NONE) Urine Mucus FEW /lpf (OCC) Random Glucose 70 MG/DL (74-106) Calcium Level 8.3 MG/DL (8.5-10.1) Objective Remarks GENERAL: The patient is alert.No distress HEENT: Exam unremarkable. Eyes without icterus. NECK: Without adenopathy or thyroid enlargement. Central trachea. CHEST: Decreased breath sounds at bases.Occ Crackles at bases CARDIAC: PMI distant. Irregularity noted. ABDOMEN: Lax, bowel sounds audible. No Mass. EXTREMITIES: No clubbing, cyanosis or edema.Neuro : No deficits. Assessment and Plan Assessment and Plan IMPRESSION: 1. Chronic obstructive pulmonary disease. 2. Respiratory failure, on oxygen therapy. 3. Question pneumonia. Seems more like atelectasis. 4. Abdominal pain, improved. 5. Atrial flutter, followed by Cardiology. 6. Spinal stenosis. 7. Obstructive sleep apnea. Plan: 1. Wean o2 to 2 L 2. Continue Nebs qid , duoneb 3. Chest Xray , BMP in am 4. Add Symbicort 160/4.5 mcg , 2 puffs bid. 5. Cont lasix 40 mg daily 6. Cont Antibiotics , Rocephin IV Jennifer Huang MD Nov 16, 2017 19:05
[2017-11-16] MEDS: BUDESONIDE-FORMOTEROL 160/4.5 MCG INHALER INH SCH (19:59)
[2017-11-16] MEDS: APIXABAN 5 MG TABLET PO SCH (20:00)
[2017-11-16] MEDS: POTASSIUM CHLORIDE 10 MEQ CONTROLLED RELEASE TAB PO SCH (20:00)
[2017-11-17] VITALS (14 sets, daily range): BP systolic 112–150; BP diastolic 56–93; PULSE 77–102; RESP 15–29; TEMP 97.8–98.5; O2SAT 89–99
[2017-11-17] MEDS: CHLORHEXIDINE GLUCONATE 2 % 1 PACK (2 CLOTHS)(taper/protocol) TOPICAL SCH (04:00)
[2017-11-17 04:06] LABS: AUTOMATED NEUTROPHIL # 4.6 TH/MM3 (1.8-7.7); BASOPHIL % 0.5 % (0.0-2.0); EOSINOPHIL # 0.1 TH/MM3 (0-0.4); EOSINOPHIL % 1.2 % (0.0-4.0); HEMATOCRIT 42.3 % (35.0-46.0); HEMOGLOBIN 13.3 GM/DL (11.6-15.3); LYMPH % 12.3 % (9.0-44.0); LYMPHOCYTE # 0.7 TH/MM3 (1.0-4.8); MEAN CELL VOLUME 96.8 FL (80.0-100.0); MEAN CORPUSCULAR HEMOGLOBIN 30.5 PG (27.0-34.0); MEAN CORPUSCULAR HGB CONC 31.6 % (32.0-36.0); MEAN PLATELET VOLUME 8.7 FL (7.0-11.0); MONOCYTE # 0.5 TH/MM3 (0-0.9); PLATELET COUNT 85 TH/MM3 (150-450); RED BLOOD COUNT 4.37 MIL/MM3 (4.00-5.30); RED CELL DISTRIBUTION WIDTH 18.7 % (11.6-17.2); WHITE BLOOD COUNT 5.9 TH/MM3 (4.0-11.0)
--- NOTE | 2017-11-17 08:43 | HHI.PR ---
Subjective Remarks Awake alert this am, Breathing better Has not needed Bipap No CP Objective Vital Signs Date Time Temp Pulse Resp B/P (MAP) Pulse Ox O2 Delivery O2 Flow Rate FiO2 11/17/17 06:00 95 11/17/17 04:00 82 11/17/17 04:00 97.8 82 22 144/68 (93) 91 11/17/17 02:00 84 11/17/17 00:00 83 11/17/17 00:00 98.0 83 19 112/56 (74) 96 11/16/17 22:00 82 11/16/17 21:00 20 11/16/17 20:00 96 26 105/52 (69) 97 11/16/17 20:00 96 11/16/17 19:20 97 Nasal Cannula 4.00 11/16/17 18:00 88 11/16/17 16:00 97.9 95 21 160/66 (97) 96 11/16/17 16:00 95 11/16/17 14:00 100 11/16/17 12:00 86 11/16/17 12:00 97.4 86 27 160/80 (106) 11/16/17 10:00 86 11/16/17 09:50 93 Nasal Cannula 4.00 I/O 11/16/17 11/16/17 11/16/17 11/17/17 11/17/17 11/17/17 07:00 15:00 23:00 07:00 15:00 23:00 Intake Total 200 ml 750 ml 800 ml Output Total 1000 ml 1500 ml 1000 ml Balance -800 ml -750 ml -200 ml Intake Oral 200 ml 750 ml 800 ml Output Urine Total 1000 ml 1500 ml 1000 ml Stool Total 0 ml # Bowel Movements 3 0 Result Diagram: 11/17/17 0235 11/16/17 1233 Procedures Laboratory Tests Test 11/10/17 04:28 11/10/17 04:30 11/10/17 04:50 11/11/17 06:01 Mean Corpuscular Hemoglobin Concent 31.5 % (32.0-36.0) 31.6 % (32.0-36.0) Red Cell Distribution Width 21.4 % (11.6-17.2) 21.4 % (11.6-17.2) Platelet Count 122 TH/MM3 (150-450) 104 TH/MM3 (150-450) Neutrophils (%) (Auto) 75.3 % (16.0-70.0) Monocytes (%) (Auto) 8.6 % (0.0-8.0) 12.2 % (0.0-8.0) Lymphocytes # (Auto) 0.7 TH/MM3 (1.0-4.8) Blood Urea Nitrogen 25 MG/DL (7-18) 21 MG/DL (7-18) Creatinine 0.47 MG/DL (0.50-1.00) Albumin 1.9 GM/DL (3.4-5.0) Alkaline Phosphatase 137 U/L (45-117) Carbon Dioxide Level 35.0 MEQ/L (21.0-32.0) 33.0 MEQ/L (21.0-32.0) Troponin I LESS THAN 0.02 NG/ML B-Type Natriuretic Peptide 142 PG/ML (0-100) Lipase 26 U/L (73-393) Urine Turbidity HAZY (CLEAR) Urine Protein 100 mg/dL (NEG-TRACE) Urine Ketones 10 mg/dL (NEG) Urine Occult Blood MOD (NEG) Urine Nitrite POS (NEG) Urine Urobilinogen 4.0 MG/DL (LESS THAN Urine Leukocyte Esterase LARGE (NEG) Urine RBC 70 /hpf (0-3) Urine WBC Clumps RARE (NONE) Urine Bacteria MANY /hpf (NONE) Urine Mucus FEW /lpf (OCC) Random Glucose 70 MG/DL (74-106) Calcium Level 8.3 MG/DL (8.5-10.1) Other Results Laboratory Tests Test 11/14/17 13:28 11/14/17 21:15 11/15/17 04:08 11/15/17 09:15 Hematocrit 46.7 % (35.0-46.0) 46.5 % (35.0-46.0) Red Cell Distribution Width 19.7 % (11.6-17.2) 19.5 % (11.6-17.2) Platelet Count 111 TH/MM3 (150-450) 94 TH/MM3 (150-450) Neutrophils (%) (Auto) 79.2 % (16.0-70.0) 79.9 % (16.0-70.0) Lymphocytes # (Auto) 0.7 TH/MM3 (1.0-4.8) 0.6 TH/MM3 (1.0-4.8) Blood Gas HCO3 53 mmol/L (22-26) 54 mmol/L (22-26) Blood Gas Base Excess 25.9 mmol/L (-2-2) 26.7 mmol/L (-2-2) Blood Gas Oxygen Saturation 77 % (90-100) Arterial Blood Partial Pressure CO2 89 mmHg (38-42) 87 mmHg (38-42) Arterial Blood Partial Pressure O2 49 mmHg (61-120) Arterial Blood Methemoglobin 2.7 % (0-2) 2.7 % (0-2) Platelet Estimate LOW (NORMAL) Creatinine 0.35 MG/DL (0.50-1.00) Calcium Level 8.3 MG/DL (8.5-10.1) Chloride Level 91 MEQ/L (98-107) Carbon Dioxide Level GREATER THAN 45.0 MEQ/L Test 11/16/17 12:33 11/17/17 02:35 Creatinine 0.37 MG/DL (0.50-1.00) Potassium Level 3.2 MEQ/L (3.5-5.1) Chloride Level 89 MEQ/L (98-107) Carbon Dioxide Level GREATER THAN 45.0 MEQ/L Mean Corpuscular Hemoglobin Concent 31.6 % (32.0-36.0) Red Cell Distribution Width 18.7 % (11.6-17.2) Platelet Count 85 TH/MM3 (150-450) Neutrophils (%) (Auto) 77.0 % (16.0-70.0) Monocytes (%) (Auto) 9.0 % (0.0-8.0) Lymphocytes # (Auto) 0.7 TH/MM3 (1.0-4.8) Platelet Estimate LOW (NORMAL) Objective Remarks GENERAL: Well-developed female, awake alert in no distress SKIN: warm and dry, b/l le erythema trace edema EYES: No scleral icterus. No injection or drainage. NECK: Supple, trachea midline. No JVD or lymphadenopathy. CARDIOVASCULAR: irregular without murmurs, gallops, or rubs. RESPIRATORY: equal B/L Clear, diminished, no wheezing, rhonchi, O2 NC GASTROINTESTINAL: Abdomen soft, non-tender , nondistended. Medications and IVs Current Medications Medications (Trade) Dose Ordered Sig/Teresa Route Start Time Stop Time Status Last Admin (NS Flush) 2 ml UNSCH PRN IV FLUSH 11/10/17 04:15 (Lotrisone Cream) 1 applic BID TOPICAL 11/10/17 09:00 11/16/17 09:04 (Percocet 10-325 Mg) 1 tab Q6H PRN PO 11/10/17 06:45 11/16/17 20:00 (Albuterol Neb) 0.63 mg Q6HR NEB PRN NEB 11/10/17 13:45 11/14/17 15:44 Esmolol HCl/ Sodium Chloride 250 ml @ 30.3 mls/hr TITRATE PRN IV 11/11/17 18:00 11/14/17 19:27 (Brevibloc Bolus Inj) 20 mg BOLUS PRN IV PUSH 11/11/17 18:00 (Lanoxin) 0.25 mg DAILY PO 11/12/17 09:00 11/16/17 09:04 Ceftriaxone Sodium 1000 mg/ Sodium Chloride 100 ml @ 200 mls/hr Q24H IV 11/12/17 08:00 11/16/17 09:04 (Lasix) 40 mg DAILY PO 11/12/17 11:00 11/16/17 09:04 (Lopressor Inj) 2.5 mg Q6H PRN IV PUSH 11/12/17 11:00 ([facility] [place] Nursing Information) Patient in critical care unit? Ass... Q361D .XX 11/12/17 12:15 11/13/17 21:38 (Chlorhexidine 2% Cloth) 3 pack UNSCH PRN TOPICAL 11/12/17 12:15 11/17/17 12:10 (Lopressor) 50 mg Q12HR PO 11/14/17 21:00 12/14/17 20:59 11/16/17 20:00 (Eliquis) 5 mg BID PO 11/16/17 21:00 11/16/17 20:00 (KCl) 10 meq BID PO 11/16/17 21:00 11/16/17 20:00 (Symbicort 160-4.5 Mcg Inh) 1 puff Q12HR INH 11/16/17 21:00 11/16/17 19:59 Assessment and Plan Problem List: (1) Atrial flutter with rapid ventricular response ICD Codes: I48.92 - Unspecified atrial flutter Status: Acute Plan: Cont Esmolol, Digoxin, rate control cardiology following. (2) History of COPD ICD Codes: Z87.09 - Personal history of other diseases of the respiratory system Status: Acute Plan: Cont to monitor, bronchodilators, Oxygen supplement sats>92 (3) UTI (urinary tract infection) ICD Codes: N39.0 - Urinary tract infection, site not specified Status: Acute Plan: Culture grew Proteus Mirabilis Sensitive to Rocephin Afebrile Assessment and Plan 11/14/17- Critical care signed off. Still requiring iv Esmolol for rate control.Lovenox for DVT prophylaxis Cardiology following. Rocephin for UTI, Pulmonary consulted over weekend for increase SOB. 11/15/17- Somnolent this am, Requiring Bipap at times. Pulmonary following, Cont Bronchodilators, and oxygen supplement. She is a NO code, no intubation. Taken off of Esmolol, rate controlled. currently not on anticoagulation, plt trending down, cardiology appreciated. 11/16/17 Awake and alert this am, She voices she was just taken off Bipap. Pulmonary following, Cont bronchodilators. HR controlled with PO Lopressor and digoxin. Rocephin for UTI culture grew Proteus Mirabilis. PT consult for increased activity 11/17/17- No complaints this am, Had good night. Breathing better, maintained in NC. HR controlled on Po medications. Will likely transfer to medical floor, today if cont to improve Problem Qualifiers (1) UTI (urinary tract infection): Senia Wadsworth Nov 17, 2017 08:43
[2017-11-17] MEDS: APIXABAN 5 MG TABLET PO SCH ×2 (08:49→22:55)
[2017-11-17] MEDS: POTASSIUM CHLORIDE 10 MEQ CONTROLLED RELEASE TAB PO SCH ×2 (08:49→19:46)
[2017-11-17] MEDS: FUROSEMIDE 40 MG TAB PO SCH (08:49)
[2017-11-17] MEDS: cefTRIAXone INJ 1,000 MG in SODIUM CHLORIDE 0.9% INJ 100 ML IV SCH (08:50)
[2017-11-17] MEDS: METOPROLOL TARTRATE 25 MG TAB PO SCH ×2 (08:50→19:46)
[2017-11-17] MEDS: DIGOXIN 0.25 MG TAB PO SCH (08:50)
[2017-11-17] MEDS: BETAMETHASONE/CLOTRIMAZOLE CREAM 15 GM TOPICAL SCH ×2 (08:50→19:47)
[2017-11-17] MEDS ORDERED: POTASSIUM CHLORIDE 20 MEQ CONTROLLED RELEASE TAB PO ONE (09:00)
--- NOTE | 2017-11-17 11:59 | PD.CARD.PN ---
Subjective Subjective Remarks No CP or SOB. No complaints today. Does not get out of bed. Objective Medications Current Medications Medications (Trade) Dose Ordered Sig/Teresa Route Start Time Stop Time Status Last Admin (NS Flush) 2 ml UNSCH PRN IV FLUSH 11/10/17 04:15 (Lotrisone Cream) 1 applic BID TOPICAL 11/10/17 09:00 11/17/17 08:50 (Percocet 10-325 Mg) 1 tab Q6H PRN PO 11/10/17 06:45 11/16/17 20:00 (Albuterol Neb) 0.63 mg Q6HR NEB PRN NEB 11/10/17 13:45 11/14/17 15:44 Esmolol HCl/ Sodium Chloride 250 ml @ 30.3 mls/hr TITRATE PRN IV 11/11/17 18:00 11/14/17 19:27 (Brevibloc Bolus Inj) 20 mg BOLUS PRN IV PUSH 11/11/17 18:00 (Lanoxin) 0.25 mg DAILY PO 11/12/17 09:00 11/17/17 08:50 Ceftriaxone Sodium 1000 mg/ Sodium Chloride 100 ml @ 200 mls/hr Q24H IV 11/12/17 08:00 11/17/17 08:50 (Lasix) 40 mg DAILY PO 11/12/17 11:00 11/17/17 08:49 (Lopressor Inj) 2.5 mg Q6H PRN IV PUSH 11/12/17 11:00 ([facility] [place] Nursing Information) Patient in critical care unit? Ass... Q361D .XX 11/12/17 12:15 11/13/17 21:38 (Chlorhexidine 2% Cloth) 3 pack UNSCH PRN TOPICAL 11/12/17 12:15 11/17/17 12:10 (Lopressor) 50 mg Q12HR PO 11/14/17 21:00 12/14/17 20:59 11/17/17 08:50 (Eliquis) 5 mg BID PO 11/16/17 21:00 11/17/17 08:49 (KCl) 10 meq BID PO 11/16/17 21:00 11/17/17 08:49 (Symbicort 160-4.5 Mcg Inh) 1 puff Q12HR INH 11/16/17 21:00 11/16/17 19:59 Vital Signs / I&O Vital Signs Date Time Temp Pulse Resp B/P (MAP) Pulse Ox O2 Delivery O2 Flow Rate FiO2 11/17/17 10:00 77 29 129/93 (105) 91 11/17/17 10:00 77 11/17/17 09:46 97 Nasal Cannula 3.00 11/17/17 09:00 96 28 129/93 (105) 99 11/17/17 08:00 98.0 95 26 150/80 (103) 96 11/17/17 08:00 80 11/17/17 06:00 95 11/17/17 04:00 82 11/17/17 04:00 97.8 82 22 144/68 (93) 91 11/17/17 02:00 84 11/17/17 00:00 83 11/17/17 00:00 98.0 83 19 112/56 (74) 96 11/16/17 22:00 82 11/16/17 21:00 20 11/16/17 20:00 96 26 105/52 (69) 97 11/16/17 20:00 96 11/16/17 19:20 97 Nasal Cannula 4.00 11/16/17 18:00 88 11/16/17 16:00 97.9 95 21 160/66 (97) 96 11/16/17 16:00 95 11/16/17 14:00 100 11/16/17 12:00 86 11/16/17 12:00 97.4 86 27 160/80 (106) I/O 11/16/17 11/16/17 11/16/17 11/17/17 11/17/17 11/17/17 07:00 15:00 23:00 07:00 15:00 23:00 Intake Total 200 ml 750 ml 800 ml Output Total 1000 ml 1500 ml 1000 ml Balance -800 ml -750 ml -200 ml Intake Oral 200 ml 750 ml 800 ml Output Urine Total 1000 ml 1500 ml 1000 ml Stool Total 0 ml # Bowel Movements 3 0 Physical Exam GENERAL: In NAD. SKIN: Warm and dry. HEAD: Normocephalic. EYES: No scleral icterus. No injection or drainage. NECK: Supple, trachea midline. No JVD or lymphadenopathy. CARDIOVASCULAR: Irreg, without murmurs, gallops, or rubs. RESPIRATORY: Breath sounds equal bilaterally. No accessory muscle use. GASTROINTESTINAL: Abdomen soft, non-tender, nondistended. MUSCULOSKELETAL: No cyanosis, trace edema. Laboratory Laboratory Tests Test 11/16/17 12:33 11/17/17 02:35 Blood Urea Nitrogen 8 MG/DL Creatinine 0.37 MG/DL Random Glucose 76 MG/DL Calcium Level 8.6 MG/DL Sodium Level 143 MEQ/L Potassium Level 3.2 MEQ/L Chloride Level 89 MEQ/L Carbon Dioxide Level GREATER THAN 45.0 MEQ/L Anion Gap 9 MEQ/L Estimat Glomerular Filtration Rate 173 ML/MIN White Blood Count 5.9 TH/MM3 Red Blood Count 4.37 MIL/MM3 Hemoglobin 13.3 GM/DL Hematocrit 42.3 % Mean Corpuscular Volume 96.8 FL Mean Corpuscular Hemoglobin 30.5 PG Mean Corpuscular Hemoglobin Concent 31.6 % Red Cell Distribution Width 18.7 % Platelet Count 85 TH/MM3 Mean Platelet Volume 8.7 FL Neutrophils (%) (Auto) 77.0 % Lymphocytes (%) (Auto) 12.3 % Monocytes (%) (Auto) 9.0 % Eosinophils (%) (Auto) 1.2 % Basophils (%) (Auto) 0.5 % Neutrophils # (Auto) 4.6 TH/MM3 Lymphocytes # (Auto) 0.7 TH/MM3 Monocytes # (Auto) 0.5 TH/MM3 Eosinophils # (Auto) 0.1 TH/MM3 Basophils # (Auto) 0.0 TH/MM3 CBC Comment AUTO DIFF Differential Comment AUTO DIFF CONFIRMED Platelet Estimate LOW Platelet Morphology Comment NORMAL Assessment and Plan Problem List: (1) Atrial flutter with rapid ventricular response ICD Codes: I48.92 - Unspecified atrial flutter Status: Acute (2) History of COPD ICD Codes: Z87.09 - Personal history of other diseases of the respiratory system Status: Acute (3) Pericardial effusion ICD Codes: I31.3 - Pericardial effusion (noninflammatory) (4) Anemia ICD Codes: D64.9 - Anemia, unspecified (5) Smoking ICD Codes: F17.200 - Nicotine dependence, unspecified, uncomplicated Assessment and Plan Remains stable from cardiac standpoint. Rate well controlled with PO meds. Continue metoprolol and digoxin. Significant risk of CVA with chronic a fib. Anticoagulation with Eliquis started. Pulmonary eval/mgmt in progress (Dr. Chavez ). Increase activity, PT. Danielle Guevara MD Nov 17, 2017 11:59
[2017-11-17] MEDS: BUDESONIDE-FORMOTEROL 160/4.5 MCG INHALER INH SCH ×2 (12:45→19:46)
[2017-11-17] MEDS: oxyCODONE/ACETAMINOPHEN 10 MG/325 MG TAB PO PRN (19:41)
--- NOTE | 2017-11-17 19:45 | HHI.PR ---
Subjective Remarks Feels better today. On o2 at 2 L. HR controlled. NO wheezing and no fever. Good output Objective Vital Signs Date Time Temp Pulse Resp B/P (MAP) Pulse Ox O2 Delivery O2 Flow Rate FiO2 11/17/17 18:00 99 11/17/17 16:00 88 11/17/17 16:00 98.2 88 22 125/57 (79) 94 11/17/17 14:00 102 11/17/17 12:00 80 11/17/17 12:00 98.3 80 139/71 (93) 92 11/17/17 10:00 77 29 129/93 (105) 91 11/17/17 10:00 77 11/17/17 09:46 97 Nasal Cannula 3.00 11/17/17 09:00 96 28 129/93 (105) 99 11/17/17 08:00 98.0 95 26 150/80 (103) 96 11/17/17 08:00 80 11/17/17 06:00 95 11/17/17 04:00 82 11/17/17 04:00 97.8 82 22 144/68 (93) 91 11/17/17 02:00 84 11/17/17 00:00 83 11/17/17 00:00 98.0 83 19 112/56 (74) 96 11/16/17 22:00 82 11/16/17 21:00 20 11/16/17 20:00 96 26 105/52 (69) 97 11/16/17 20:00 96 I/O 11/16/17 11/16/17 11/16/17 11/17/17 11/17/17 11/17/17 07:00 15:00 23:00 07:00 15:00 23:00 Intake Total 200 ml 750 ml 800 ml 100 ml 240 ml Output Total 1000 ml 1500 ml 1000 ml 1600 ml Balance -800 ml -750 ml -200 ml 100 ml -1360 ml Intake Oral 200 ml 750 ml 800 ml 240 ml IV Total 100 ml Output Urine Total 1000 ml 1500 ml 1000 ml 1600 ml Stool Total 0 ml # Bowel Movements 3 0 3 Result Diagram: 11/17/17 0235 11/16/17 1233 Procedures Laboratory Tests Test 11/10/17 04:28 11/10/17 04:30 11/10/17 04:50 11/11/17 06:01 Mean Corpuscular Hemoglobin Concent 31.5 % (32.0-36.0) 31.6 % (32.0-36.0) Red Cell Distribution Width 21.4 % (11.6-17.2) 21.4 % (11.6-17.2) Platelet Count 122 TH/MM3 (150-450) 104 TH/MM3 (150-450) Neutrophils (%) (Auto) 75.3 % (16.0-70.0) Monocytes (%) (Auto) 8.6 % (0.0-8.0) 12.2 % (0.0-8.0) Lymphocytes # (Auto) 0.7 TH/MM3 (1.0-4.8) Blood Urea Nitrogen 25 MG/DL (7-18) 21 MG/DL (7-18) Creatinine 0.47 MG/DL (0.50-1.00) Albumin 1.9 GM/DL (3.4-5.0) Alkaline Phosphatase 137 U/L (45-117) Carbon Dioxide Level 35.0 MEQ/L (21.0-32.0) 33.0 MEQ/L (21.0-32.0) Troponin I LESS THAN 0.02 NG/ML B-Type Natriuretic Peptide 142 PG/ML (0-100) Lipase 26 U/L (73-393) Urine Turbidity HAZY (CLEAR) Urine Protein 100 mg/dL (NEG-TRACE) Urine Ketones 10 mg/dL (NEG) Urine Occult Blood MOD (NEG) Urine Nitrite POS (NEG) Urine Urobilinogen 4.0 MG/DL (LESS THAN Urine Leukocyte Esterase LARGE (NEG) Urine RBC 70 /hpf (0-3) Urine WBC Clumps RARE (NONE) Urine Bacteria MANY /hpf (NONE) Urine Mucus FEW /lpf (OCC) Random Glucose 70 MG/DL (74-106) Calcium Level 8.3 MG/DL (8.5-10.1) Objective Remarks GENERAL: The patient is alert.No distress HEENT: Exam unremarkable. Eyes without icterus. NECK: Without adenopathy or thyroid enlargement. Central trachea. CHEST: Decreased breath sounds at bases. Occ Wheeze and Occ Crackles at bases CARDIAC: PMI distant. Irregularity noted. ABDOMEN: Lax, bowel sounds audible. No Mass. EXTREMITIES: No clubbing, cyanosis or edema.Neuro : No deficits. Assessment and Plan Assessment and Plan IMPRESSION: 1. Chronic obstructive pulmonary disease. 2. Respiratory failure, on oxygen therapy. 3. Question pneumonia. Seems more like atelectasis. 4. Abdominal pain, improved. 5. Atrial flutter, followed by Cardiology. 6. Spinal stenosis. 7. Obstructive sleep apnea. Plan: 1. Wean o2 to 2 L 2. Continue Nebs qid , duoneb 3. Transfer to tele 4. Cont Symbicort 160/4.5 mcg , 2 puffs bid. 5. Cont lasix 40 mg daily 6. Cont Antibiotics , Rocephin 1G IV Jennifer Huang MD Nov 17, 2017 19:45
[2017-11-18] VITALS (8 sets, daily range): BP systolic 128–151; BP diastolic 64–85; PULSE 76–104; RESP 16–18; TEMP 97.3–98.2; O2SAT 92–94
[2017-11-18] MEDS: oxyCODONE/ACETAMINOPHEN 10 MG/325 MG TAB PO PRN ×3 (03:45→18:44)
--- NOTE | 2017-11-18 08:22 | HHI.PR ---
Subjective Remarks Awake alert this am, Breathing better sat's maintained on NC transferred to Medical floor Objective Vital Signs Date Time Temp Pulse Resp B/P (MAP) Pulse Ox O2 Delivery O2 Flow Rate FiO2 11/18/17 04:00 97.3 90 16 148/84 (105) 92 11/18/17 00:00 98.2 76 18 128/70 (89) 94 11/17/17 21:05 98.5 89 19 144/85 (104) 93 11/17/17 20:00 98.0 93 15 126/66 (86) 92 11/17/17 20:00 93 11/17/17 18:00 99 11/17/17 16:00 88 11/17/17 16:00 98.2 88 22 125/57 (79) 94 11/17/17 14:00 102 11/17/17 12:00 80 11/17/17 12:00 98.3 80 139/71 (93) 92 11/17/17 10:00 77 29 129/93 (105) 91 11/17/17 10:00 77 11/17/17 09:46 97 Nasal Cannula 3.00 11/17/17 09:00 96 28 129/93 (105) 99 I/O 11/17/17 11/17/17 11/17/17 11/18/17 11/18/17 11/18/17 07:00 15:00 23:00 07:00 15:00 23:00 Intake Total 800 ml 100 ml 240 ml Output Total 1000 ml 1600 ml Balance -200 ml 100 ml -1360 ml Intake Oral 800 ml 240 ml IV Total 100 ml Output Urine Total 1000 ml 1600 ml # Bowel Movements 0 3 Result Diagram: 11/17/17 0235 11/16/17 1233 Procedures Laboratory Tests Test 11/10/17 04:28 11/10/17 04:30 11/10/17 04:50 11/11/17 06:01 Mean Corpuscular Hemoglobin Concent 31.5 % (32.0-36.0) 31.6 % (32.0-36.0) Red Cell Distribution Width 21.4 % (11.6-17.2) 21.4 % (11.6-17.2) Platelet Count 122 TH/MM3 (150-450) 104 TH/MM3 (150-450) Neutrophils (%) (Auto) 75.3 % (16.0-70.0) Monocytes (%) (Auto) 8.6 % (0.0-8.0) 12.2 % (0.0-8.0) Lymphocytes # (Auto) 0.7 TH/MM3 (1.0-4.8) Blood Urea Nitrogen 25 MG/DL (7-18) 21 MG/DL (7-18) Creatinine 0.47 MG/DL (0.50-1.00) Albumin 1.9 GM/DL (3.4-5.0) Alkaline Phosphatase 137 U/L (45-117) Carbon Dioxide Level 35.0 MEQ/L (21.0-32.0) 33.0 MEQ/L (21.0-32.0) Troponin I LESS THAN 0.02 NG/ML B-Type Natriuretic Peptide 142 PG/ML (0-100) Lipase 26 U/L (73-393) Urine Turbidity HAZY (CLEAR) Urine Protein 100 mg/dL (NEG-TRACE) Urine Ketones 10 mg/dL (NEG) Urine Occult Blood MOD (NEG) Urine Nitrite POS (NEG) Urine Urobilinogen 4.0 MG/DL (LESS THAN Urine Leukocyte Esterase LARGE (NEG) Urine RBC 70 /hpf (0-3) Urine WBC Clumps RARE (NONE) Urine Bacteria MANY /hpf (NONE) Urine Mucus FEW /lpf (OCC) Random Glucose 70 MG/DL (74-106) Calcium Level 8.3 MG/DL (8.5-10.1) Objective Remarks GENERAL: Well-developed female, awake alert in no distress SKIN: warm and dry, b/l le erythema trace edema EYES: No scleral icterus. No injection or drainage. NECK: Supple, trachea midline. No JVD or lymphadenopathy. CARDIOVASCULAR: irregular without murmurs, gallops, or rubs. RESPIRATORY: equal B/L Clear, diminished, no wheezing, rhonchi, O2 NC GASTROINTESTINAL: Abdomen soft, non-tender , nondistended. Medications and IVs Current Medications Medications (Trade) Dose Ordered Sig/Teresa Route Start Time Stop Time Status Last Admin (NS Flush) 2 ml UNSCH PRN IV FLUSH 11/10/17 04:15 (Lotrisone Cream) 1 applic BID TOPICAL 11/10/17 09:00 11/17/17 19:47 (Percocet 10-325 Mg) 1 tab Q6H PRN PO 11/10/17 06:45 11/18/17 03:45 (Albuterol Neb) 0.63 mg Q6HR NEB PRN NEB 11/10/17 13:45 11/14/17 15:44 Esmolol HCl/ Sodium Chloride 250 ml @ 30.3 mls/hr TITRATE PRN IV 11/11/17 18:00 11/14/17 19:27 (Brevibloc Bolus Inj) 20 mg BOLUS PRN IV PUSH 11/11/17 18:00 (Lanoxin) 0.25 mg DAILY PO 11/12/17 09:00 11/17/17 08:50 Ceftriaxone Sodium 1000 mg/ Sodium Chloride 100 ml @ 200 mls/hr Q24H IV 11/12/17 08:00 11/17/17 08:50 (Lasix) 40 mg DAILY PO 11/12/17 11:00 11/17/17 08:49 (Lopressor Inj) 2.5 mg Q6H PRN IV PUSH 11/12/17 11:00 ([facility] [place] Nursing Information) Patient in critical care unit? Ass... Q361D .XX 11/12/17 12:15 11/13/17 21:38 (Lopressor) 50 mg Q12HR PO 11/14/17 21:00 12/14/17 20:59 11/17/17 19:46 (Eliquis) 5 mg BID PO 11/16/17 21:00 11/17/17 22:55 (KCl) 10 meq BID PO 11/16/17 21:00 11/17/17 19:46 (Symbicort 160-4.5 Mcg Inh) 1 puff Q12HR INH 11/16/17 21:00 11/17/17 19:46 Assessment and Plan Problem List: (1) Atrial flutter with rapid ventricular response ICD Codes: I48.92 - Unspecified atrial flutter Status: Acute Plan: Cont Esmolol, Digoxin, rate control cardiology following. (2) History of COPD ICD Codes: Z87.09 - Personal history of other diseases of the respiratory system Status: Acute Plan: Cont to monitor, bronchodilators, Oxygen supplement sats>92 (3) UTI (urinary tract infection) ICD Codes: N39.0 - Urinary tract infection, site not specified Status: Acute Plan: Culture grew Proteus Mirabilis Sensitive to Rocephin Afebrile Assessment and Plan 11/14/17- Critical care signed off. Still requiring iv Esmolol for rate control.Lovenox for DVT prophylaxis Cardiology following. Rocephin for UTI, Pulmonary consulted over weekend for increase SOB. 11/15/17- Somnolent this am, Requiring Bipap at times. Pulmonary following, Cont Bronchodilators, and oxygen supplement. She is a NO code, no intubation. Taken off of Esmolol, rate controlled. currently not on anticoagulation, plt trending down, cardiology appreciated. 11/16/17 Awake and alert this am, She voices she was just taken off Bipap. Pulmonary following, Cont bronchodilators. HR controlled with PO Lopressor and digoxin. Rocephin for UTI culture grew Proteus Mirabilis. PT consult for increased activity 11/17/17- No complaints this am, Had good night. Breathing better, maintained in NC. HR controlled on Po medications. Will likely transfer to medical floor, today if cont to improve 11/18/17- Transferred to medical floor, breathing better, Cont to be followed by Pulmonary. HR controlled, Eliquis for Afib. Labs pending this am. Back to rehab when stable. Problem Qualifiers (1) UTI (urinary tract infection): Senia Wadsworth Nov 18, 2017 08:22
[2017-11-18] MEDS: BETAMETHASONE/CLOTRIMAZOLE CREAM 15 GM TOPICAL SCH ×2 (09:00→21:01)
[2017-11-18] MEDS: POTASSIUM CHLORIDE 10 MEQ CONTROLLED RELEASE TAB PO SCH ×2 (09:32→21:00)
[2017-11-18] MEDS: FUROSEMIDE 40 MG TAB PO SCH (09:32)
[2017-11-18] MEDS: DIGOXIN 0.25 MG TAB PO SCH (09:33)
[2017-11-18] MEDS: METOPROLOL TARTRATE 25 MG TAB PO SCH ×2 (09:33→21:00)
[2017-11-18] MEDS: APIXABAN 5 MG TABLET PO SCH ×2 (09:33→21:00)
[2017-11-18] MEDS: cefTRIAXone INJ 1,000 MG in SODIUM CHLORIDE 0.9% INJ 100 ML IV SCH (09:37)
[2017-11-18] MEDS: BUDESONIDE-FORMOTEROL 160/4.5 MCG INHALER INH SCH ×2 (09:38→21:01)
[2017-11-18 11:58] LABS: AUTOMATED NEUTROPHIL # 5.8 TH/MM3 (1.8-7.7); BASOPHIL % 0.6 % (0.0-2.0); EOSINOPHIL # 0.1 TH/MM3 (0-0.4); EOSINOPHIL % 1.3 % (0.0-4.0); HEMATOCRIT 45.8 % (35.0-46.0); HEMOGLOBIN 14.6 GM/DL (11.6-15.3); LYMPH % 11.2 % (9.0-44.0); LYMPHOCYTE # 0.8 TH/MM3 (1.0-4.8); MEAN CELL VOLUME 97.2 FL (80.0-100.0); MEAN CORPUSCULAR HEMOGLOBIN 30.9 PG (27.0-34.0); MEAN CORPUSCULAR HGB CONC 31.8 % (32.0-36.0); MEAN PLATELET VOLUME 9.6 FL (7.0-11.0); MONO % 6.4 % (0.0-8.0); MONOCYTE # 0.5 TH/MM3 (0-0.9); NEUT % 80.5 % (16.0-70.0); PLATELET COUNT 98 TH/MM3 (150-450); RED BLOOD COUNT 4.72 MIL/MM3 (4.00-5.30); RED CELL DISTRIBUTION WIDTH 18.7 % (11.6-17.2); WHITE BLOOD COUNT 7.2 TH/MM3 (4.0-11.0)
[2017-11-18 12:35] LABS: BICARBONATE 41.1 MEQ/L (21.0-32.0); CALCIUM 8.5 MG/DL (8.5-10.1); CREATININE 0.37 MG/DL (0.50-1.00)
--- NOTE | 2017-11-18 16:03 | PD.CARD.PN ---
Subjective Subjective Remarks No CP or SOB. Feels better, eating lunch. Objective Medications Current Medications Medications (Trade) Dose Ordered Sig/Teresa Route Start Time Stop Time Status Last Admin (NS Flush) 2 ml UNSCH PRN IV FLUSH 11/10/17 04:15 (Lotrisone Cream) 1 applic BID TOPICAL 11/10/17 09:00 11/18/17 09:00 (Percocet 10-325 Mg) 1 tab Q6H PRN PO 11/10/17 06:45 11/18/17 09:37 (Albuterol Neb) 0.63 mg Q6HR NEB PRN NEB 11/10/17 13:45 11/14/17 15:44 Esmolol HCl/ Sodium Chloride 250 ml @ 30.3 mls/hr TITRATE PRN IV 11/11/17 18:00 11/14/17 19:27 (Brevibloc Bolus Inj) 20 mg BOLUS PRN IV PUSH 11/11/17 18:00 (Lanoxin) 0.25 mg DAILY PO 11/12/17 09:00 11/18/17 09:33 Ceftriaxone Sodium 1000 mg/ Sodium Chloride 100 ml @ 200 mls/hr Q24H IV 11/12/17 08:00 11/18/17 09:37 (Lasix) 40 mg DAILY PO 11/12/17 11:00 11/18/17 09:32 (Lopressor Inj) 2.5 mg Q6H PRN IV PUSH 11/12/17 11:00 [place] [place] in critical care unit? Ass... Q361D .XX 11/12/17 12:15 11/13/17 21:38 (Lopressor) 50 mg Q12HR PO 11/14/17 21:00 12/14/17 20:59 11/18/17 09:33 (Eliquis) 5 mg BID PO 11/16/17 21:00 11/18/17 09:33 (KCl) 10 meq BID PO 11/16/17 21:00 11/18/17 09:32 (Symbicort 160-4.5 Mcg Inh) 1 puff Q12HR INH 11/16/17 21:00 11/18/17 09:38 Vital Signs / I&O Vital Signs Date Time Temp Pulse Resp B/P (MAP) Pulse Ox O2 Delivery O2 Flow Rate FiO2 11/18/17 13:42 94 Nasal Cannula 3.00 11/18/17 12:00 97.8 82 18 132/64 (86) 94 11/18/17 08:00 97.4 84 16 137/84 (101) 94 11/18/17 04:00 97.3 90 16 148/84 (105) 92 11/18/17 00:00 98.2 76 18 128/70 (89) 94 11/17/17 21:05 98.5 89 19 144/85 (104) 93 11/17/17 20:00 98.0 93 15 126/66 (86) 92 11/17/17 20:00 93 11/17/17 18:00 99 I/O 11/17/17 11/17/17 11/17/17 11/18/17 11/18/17 11/18/17 07:00 15:00 23:00 07:00 15:00 23:00 Intake Total 800 ml 100 ml 240 ml 780 ml Output Total 1000 ml 1600 ml 800 ml Balance -200 ml 100 ml -1360 ml -20 ml Intake Oral 800 ml 240 ml 780 ml IV Total 100 ml Output Urine Total 1000 ml 1600 ml 800 ml # Bowel Movements 0 3 0 Physical Exam GENERAL: In NAD. SKIN: Warm and dry. HEAD: Normocephalic. EYES: No scleral icterus. No injection or drainage. NECK: Supple, trachea midline. No JVD or lymphadenopathy. CARDIOVASCULAR: Irreg, without murmurs, gallops, or rubs. RESPIRATORY: Breath sounds equal bilaterally. No accessory muscle use. GASTROINTESTINAL: Abdomen soft, non-tender, nondistended. MUSCULOSKELETAL: No cyanosis, trace edema. Laboratory Laboratory Tests Test 11/18/17 10:44 White Blood Count 7.2 TH/MM3 Red Blood Count 4.72 MIL/MM3 Hemoglobin 14.6 GM/DL Hematocrit 45.8 % Mean Corpuscular Volume 97.2 FL Mean Corpuscular Hemoglobin 30.9 PG Mean Corpuscular Hemoglobin Concent 31.8 % Red Cell Distribution Width 18.7 % Platelet Count 98 TH/MM3 Mean Platelet Volume 9.6 FL Neutrophils (%) (Auto) 80.5 % Lymphocytes (%) (Auto) 11.2 % Monocytes (%) (Auto) 6.4 % Eosinophils (%) (Auto) 1.3 % Basophils (%) (Auto) 0.6 % Neutrophils # (Auto) 5.8 TH/MM3 Lymphocytes # (Auto) 0.8 TH/MM3 Monocytes # (Auto) 0.5 TH/MM3 Eosinophils # (Auto) 0.1 TH/MM3 Basophils # (Auto) 0.0 TH/MM3 CBC Comment AUTO DIFF Differential Comment AUTO DIFF CONFIRMED Blood Urea Nitrogen 8 MG/DL Creatinine 0.37 MG/DL Random Glucose 156 MG/DL Calcium Level 8.5 MG/DL Sodium Level 139 MEQ/L Potassium Level 3.9 MEQ/L Chloride Level 94 MEQ/L Carbon Dioxide Level 41.1 MEQ/L Anion Gap 4 MEQ/L Estimat Glomerular Filtration Rate 173 ML/MIN Assessment and Plan Problem List: (1) Atrial flutter with rapid ventricular response ICD Codes: I48.92 - Unspecified atrial flutter Status: Acute (2) History of COPD ICD Codes: Z87.09 - Personal history of other diseases of the respiratory system Status: Acute (3) Pericardial effusion ICD Codes: I31.3 - Pericardial effusion (noninflammatory) (4) Anemia ICD Codes: D64.9 - Anemia, unspecified (5) Smoking ICD Codes: F17.200 - Nicotine dependence, unspecified, uncomplicated Assessment and Plan No new cardiac issues. Rate remains well controlled, continue metoprolol and digoxin. Anticoagulation with Eliquis started for chronic a fib and increased risk of stroke. Continue current program. Increase activity, PT. Danielle Guevara MD Nov 18, 2017 16:03
--- NOTE | 2017-11-18 19:28 | HHI.PR ---
Subjective Remarks Feels better today. On o2 at 2 L.still Off BiPAP Has some edema NO wheezing and no fever. Good output Objective Vital Signs Date Time Temp Pulse Resp B/P (MAP) Pulse Ox O2 Delivery O2 Flow Rate FiO2 11/18/17 17:28 92 Nasal Cannula 3.00 11/18/17 16:00 97.6 91 18 131/78 (95) 92 11/18/17 13:42 94 Nasal Cannula 3.00 11/18/17 12:00 97.8 82 18 132/64 (86) 94 11/18/17 08:00 97.4 84 16 137/84 (101) 94 11/18/17 04:00 97.3 90 16 148/84 (105) 92 11/18/17 00:00 98.2 76 18 128/70 (89) 94 11/17/17 21:05 98.5 89 19 144/85 (104) 93 11/17/17 20:00 98.0 93 15 126/66 (86) 92 11/17/17 20:00 93 I/O 11/17/17 11/17/17 11/17/17 11/18/17 11/18/17 11/18/17 07:00 15:00 23:00 07:00 15:00 23:00 Intake Total 800 ml 100 ml 240 ml 780 ml Output Total 1000 ml 1600 ml 800 ml Balance -200 ml 100 ml -1360 ml -20 ml Intake Oral 800 ml 240 ml 780 ml IV Total 100 ml Output Urine Total 1000 ml 1600 ml 800 ml # Bowel Movements 0 3 0 Result Diagram: 11/18/17 1044 11/18/17 1044 Procedures Laboratory Tests Test 11/10/17 04:28 11/10/17 04:30 11/10/17 04:50 11/11/17 06:01 Mean Corpuscular Hemoglobin Concent 31.5 % (32.0-36.0) 31.6 % (32.0-36.0) Red Cell Distribution Width 21.4 % (11.6-17.2) 21.4 % (11.6-17.2) Platelet Count 122 TH/MM3 (150-450) 104 TH/MM3 (150-450) Neutrophils (%) (Auto) 75.3 % (16.0-70.0) Monocytes (%) (Auto) 8.6 % (0.0-8.0) 12.2 % (0.0-8.0) Lymphocytes # (Auto) 0.7 TH/MM3 (1.0-4.8) Blood Urea Nitrogen 25 MG/DL (7-18) 21 MG/DL (7-18) Creatinine 0.47 MG/DL (0.50-1.00) Albumin 1.9 GM/DL (3.4-5.0) Alkaline Phosphatase 137 U/L (45-117) Carbon Dioxide Level 35.0 MEQ/L (21.0-32.0) 33.0 MEQ/L (21.0-32.0) Troponin I LESS THAN 0.02 NG/ML B-Type Natriuretic Peptide 142 PG/ML (0-100) Lipase 26 U/L (73-393) Urine Turbidity HAZY (CLEAR) Urine Protein 100 mg/dL (NEG-TRACE) Urine Ketones 10 mg/dL (NEG) Urine Occult Blood MOD (NEG) Urine Nitrite POS (NEG) Urine Urobilinogen 4.0 MG/DL (LESS THAN Urine Leukocyte Esterase LARGE (NEG) Urine RBC 70 /hpf (0-3) Urine WBC Clumps RARE (NONE) Urine Bacteria MANY /hpf (NONE) Urine Mucus FEW /lpf (OCC) Random Glucose 70 MG/DL (74-106) Calcium Level 8.3 MG/DL (8.5-10.1) Objective Remarks GENERAL: The patient is alert.No distress HEENT: Exam unremarkable. Eyes without icterus. NECK: Without adenopathy or thyroid enlargement. mild venous distention CHEST: Decreased breath sounds at bases. Occ Wheeze and Occ Crackles at bases CARDIAC: PMI distant. Irregularity noted. ABDOMEN: Lax, bowel sounds audible. No Mass. EXTREMITIES: No clubbing, cyanosis but has edema.Neuro : No deficits. Assessment and Plan Assessment and Plan IMPRESSION: 1. Chronic obstructive pulmonary disease. 2. Respiratory failure, on oxygen therapy. 3. Question pneumonia. Seems more like atelectasis. 4. Abdominal pain, improved. 5. Atrial flutter, followed by Cardiology. 6. Spinal stenosis. 7. Obstructive sleep apnea. Plan: 1. Wean o2 to 2 L 2. Continue Nebs qid , duoneb 3. BiPAP if sats <90 4. Cont Symbicort 160/4.5 mcg , 2 puffs bid. 5. Cont lasix 40 mg daily 6. Cont Antibiotics , and D/C Rocephin IV 7. Add ceftin 500 mg BID X 5 days Jennifer Huang MD Nov 18, 2017 19:28
[2017-11-18] MEDS: CEFUROXIME AXETIL 500 MG TAB PO SCH (21:00)
[2017-11-19] VITALS: BP 171/85; PULSE 71; PULSE 78; RESP 18; TEMP 96.2; O2SAT 96
[2017-11-19] MEDS: oxyCODONE/ACETAMINOPHEN 10 MG/325 MG TAB PO PRN ×3 (00:52→14:34)
[2017-11-19 04:00] VITALS: BP 135/84; PULSE 70; PULSE 72; RESP 18; TEMP 96.2; O2SAT 95
[2017-11-19 08:00] VITALS: BP 153/86; PULSE 79; PULSE 87; RESP 20; TEMP 98; O2SAT 96
[2017-11-19] MEDS: CEFUROXIME AXETIL 500 MG TAB PO SCH (08:34)
[2017-11-19] MEDS: DIGOXIN 0.25 MG TAB PO SCH (08:35)
[2017-11-19] MEDS: METOPROLOL TARTRATE 25 MG TAB PO SCH (08:35)
[2017-11-19] MEDS: FUROSEMIDE 40 MG TAB PO SCH (08:35)
[2017-11-19] MEDS: APIXABAN 5 MG TABLET PO SCH (08:36)
[2017-11-19] MEDS: POTASSIUM CHLORIDE 10 MEQ CONTROLLED RELEASE TAB PO SCH (08:36)
[2017-11-19] MEDS: BUDESONIDE-FORMOTEROL 160/4.5 MCG INHALER INH SCH (08:41)
[2017-11-19] MEDS: BETAMETHASONE/CLOTRIMAZOLE CREAM 15 GM TOPICAL SCH (08:41)
[2017-11-19] MEDS ORDERED: KLOR10TA PO (10:58)
[2017-11-19] MEDS ORDERED: METO25TA3 PO (10:58)
[2017-11-19] MEDS ORDERED: APIX5TAB PO (10:58)
[2017-11-19] MEDS ORDERED: FURO40TA PO (10:58)
[2017-11-19] MEDS ORDERED: DIGO0.25 PO (10:58)
--- NOTE | 2017-11-19 11:03 | HHI.DS ---
Discharge Summary Admission Date Nov 10, 2017 at 05:56 Admitting Diagnosis atrial flutter w/ RVR; UTI; h/o copd; h/o chf (1) Atrial flutter with rapid ventricular response Diagnosis: Principal ICD Codes: I48.92 - Unspecified atrial flutter Status: Acute (2) Pericardial effusion Diagnosis: Secondary ICD Codes: I31.3 - Pericardial effusion (noninflammatory) Status: Chronic (3) History of congestive heart failure Diagnosis: Secondary ICD Codes: Z86.79 - Personal history of other diseases of the circulatory system Status: Acute (4) History of COPD Diagnosis: Secondary ICD Codes: Z87.09 - Personal history of other diseases of the respiratory system Status: Acute Procedures Laboratory Tests Test 11/10/17 04:28 11/10/17 04:30 11/10/17 04:50 11/11/17 06:01 Mean Corpuscular Hemoglobin Concent 31.5 % (32.0-36.0) 31.6 % (32.0-36.0) Red Cell Distribution Width 21.4 % (11.6-17.2) 21.4 % (11.6-17.2) Platelet Count 122 TH/MM3 (150-450) 104 TH/MM3 (150-450) Neutrophils (%) (Auto) 75.3 % (16.0-70.0) Monocytes (%) (Auto) 8.6 % (0.0-8.0) 12.2 % (0.0-8.0) Lymphocytes # (Auto) 0.7 TH/MM3 (1.0-4.8) Blood Urea Nitrogen 25 MG/DL (7-18) 21 MG/DL (7-18) Creatinine 0.47 MG/DL (0.50-1.00) Albumin 1.9 GM/DL (3.4-5.0) Alkaline Phosphatase 137 U/L (45-117) Carbon Dioxide Level 35.0 MEQ/L (21.0-32.0) 33.0 MEQ/L (21.0-32.0) Troponin I LESS THAN 0.02 NG/ML B-Type Natriuretic Peptide 142 PG/ML (0-100) Lipase 26 U/L (73-393) Urine Turbidity HAZY (CLEAR) Urine Protein 100 mg/dL (NEG-TRACE) Urine Ketones 10 mg/dL (NEG) Urine Occult Blood MOD (NEG) Urine Nitrite POS (NEG) Urine Urobilinogen 4.0 MG/DL (LESS THAN Urine Leukocyte Esterase LARGE (NEG) Urine RBC 70 /hpf (0-3) Urine WBC Clumps RARE (NONE) Urine Bacteria MANY /hpf (NONE) Urine Mucus FEW /lpf (OCC) Random Glucose 70 MG/DL (74-106) Calcium Level 8.3 MG/DL (8.5-10.1) CBC/BMP: 11/18/17 1044 11/18/17 1044 Significant Findings Laboratory Tests Test 11/16/17 12:33 11/17/17 02:35 11/17/17 11:16 11/18/17 10:44 Creatinine 0.37 MG/DL (0.50-1.00) 0.37 MG/DL (0.50-1.00) Potassium Level 3.2 MEQ/L (3.5-5.1) Chloride Level 89 MEQ/L (98-107) 94 MEQ/L (98-107) Carbon Dioxide Level GREATER THAN 45.0 MEQ/L 41.1 MEQ/L (21.0-32.0) Mean Corpuscular Hemoglobin Concent 31.6 % (32.0-36.0) 31.8 % (32.0-36.0) Red Cell Distribution Width 18.7 % (11.6-17.2) 18.7 % (11.6-17.2) Platelet Count 85 TH/MM3 (150-450) 98 TH/MM3 (150-450) Neutrophils (%) (Auto) 77.0 % (16.0-70.0) 80.5 % (16.0-70.0) Monocytes (%) (Auto) 9.0 % (0.0-8.0) Lymphocytes # (Auto) 0.7 TH/MM3 (1.0-4.8) 0.8 TH/MM3 (1.0-4.8) Platelet Estimate LOW (NORMAL) Random Glucose 156 MG/DL (74-106) Anion Gap 4 MEQ/L (5-15) Imaging Last Impressions Chest X-Ray 11/10/17 380 Signed Impressions: CONCLUSION: Cardiomegaly with mild basilar airspace disease, most characteristic of atelect asis. Abdomen/Pelvis CT 11/10/17 934 Signed Impressions: CONCLUSION: 1. Moderate pericardial effusion and small left effusion with subsegmental bas ilar airspace disease. 2. Moderate anasarca. 3. Postoperative gastric bypass surgery and left hip replacement. 4. Multiple small gallstones. 5. Mild constipation. No bowel obstruction. CT Angiography 11/10/17 0000 Signed Impressions: CONCLUSION: 1. Negative for pulmonary embolus. 2. Moderate sized pericardial effusion and small left effusion. 3. Subsegmental basilar airspace disease. PE at Discharge GENERAL: Awake and alert with sats at 89% SKIN: Warm and dry. HEAD: Normocephalic. EYES: No scleral icterus. No injection or drainage. NECK: Supple, trachea midline. No JVD or lymphadenopathy. CARDIOVASCULAR: Irregular rate and rhythm with 2/6 systolic murmur. No rub heard. RESPIRATORY: Breath sounds equal bilaterally but diminished at bases. No accessory muscle use. GASTROINTESTINAL: Abdomen soft, non-tender, nondistended. MUSCULOSKELETAL: No cyanosis, or edema. BACK: Nontender without obvious deformity. No CVA tenderness. Hospital Course She presented with SOB and was found to have AF with RVR. She was seen in consult by Cardiology and meds were adjusted. She is now doing well and is cleared for D/C back to her SNF. We will F/U with her in the facility and she will See Cards as scheduled. Pt Condition on Discharge: Stable Discharge Disposition: Discharge to SNF Discharge Instructions DIET: Follow Instructions for: As Tolerated, No Restrictions Activities you can perform: Regular-No Restrictions New Medications: Apixaban (Eliquis) 5 Mg Tab 5 MG PO BID for Blood Clot Prevention for 30 Days, #60 TAB Digoxin (Digoxin) 0.25 Mg Tab 0.25 MG PO DAILY for Regulate Heart Beat for 30 Days, #30 TAB Furosemide (Furosemide) 40 Mg Tab 40 MG PO DAILY for Blood Pressure Management for 30 Days, #30 TAB Metoprolol Tartrate (Metoprolol Tartrate) 25 Mg Tab 50 MG PO Q12HR for Regulate Heart Beat for 30 Days, #30 TAB Potassium Chloride ER (Klor-Con 10) 10 Meq Tab 10 MEQ PO BID for Blood Pressure Management for 30 Days, #60 TAB Continued Medications: Albuterol 18 GM Inh (Ventolin Hfa 18 GM Inh) 90 Mcg/Act Aer 1 PUFF INH Q4H PRN for SHORTNESS OF BREATH, #1 INHALER 0 Refills Albuterol 18 GM Inh (Ventolin Hfa 18 GM Inh) 90 Mcg/Act Aer 2 PUFF INH Q4-6H PRN for SHORTNESS OF BREATH, #1 INHALER 0 Refills Albuterol Neb (Albuterol Neb) 0.63 Mg/3 Ml Neb 0.63 MG NEB Q4HR NEB PRN for SHORTNESS OF BREATH, #25 NEBULE 0 Refills Betamethasone-Clotrimazole Topical (Lotrisone Topical) 1-0.05% Cream 1 APPLIC TOPICAL BID for Fungal infection, #15 GM 0 Refills Oebbslxxgm-Gmuipjobeolho-Jwqgrzct (Fioricet) 50-300-40 Mg Cap 1 CAP PO Q4H PRN for HEADACHE, CAP 0 Refills Multiple Vitamins W/ Minerals (One Daily-Minerals) 1 Tab 1 TAB PO DAILY for Nutritional Supplement, #100 TAB 0 Refills Oxycodone-Acetaminophen (Oxycodone-Acetaminophen) 10-325 mg Tab 1 TAB PO Q6H PRN for PAIN, TAB 0 Refills Francis Buchanan Nov 19, 2017 11:03
[2017-11-19 12:00] VITALS: BP 130/72; PULSE 70; PULSE 84; RESP 20; TEMP 97.4; O2SAT 90
[2017-11-19 14:46] VITALS: O2SAT 96
== END 2017-11-19 16:04 | DRG 308 ==
LOC: NEPC 03:58 → NEDA 05:56 → HIME 07:10 → N04B 11-17 21:04
PROVIDERS: ADMIT Family Medicine; ATTEND Family Medicine
DX: I48.92 Unspecified atrial flutter (principal); J96.00 Acute respiratory failure, unspecified whether with hypoxia or hypercapnia; R18.8 Other ascites; I31.3 Pericardial effusion (noninflammatory); I11.0 Hypertensive heart disease with heart failure; I95.9 Hypotension, unspecified; I27.20 Pulmonary hypertension, unspecified; I50.9 Heart failure, unspecified; N39.0 Urinary tract infection, site not specified; J98.11 Atelectasis; E66.01 Morbid (severe) obesity due to excess calories; J44.9 Chronic obstructive pulmonary disease, unspecified; R32 Unspecified urinary incontinence; B96.4 Proteus (mirabilis) (morganii) as the cause of diseases classified elsewhere; D64.9 Anemia, unspecified; K21.9 Gastro-esophageal reflux disease without esophagitis; M54.9 Dorsalgia, unspecified; G47.33 Obstructive sleep apnea (adult) (pediatric); M48.00 Spinal stenosis, site unspecified; F32.9 Major depressive disorder, single episode, unspecified; G89.29 Other chronic pain; F17.200 Nicotine dependence, unspecified, uncomplicated; Z96.642 Presence of left artificial hip joint; Z88.5 Allergy status to narcotic agent; Z88.2 Allergy status to sulfonamides; Z88.7 Allergy status to serum and vaccine; Z79.891 Long term (current) use of opiate analgesic; Z79.51 Long term (current) use of inhaled steroids; Z79.899 Other long term (current) drug therapy; Z98.0 Intestinal bypass and anastomosis status; Z68.31 Body mass index [BMI] 31.0-31.9, adult; Z66 Do not resuscitate
CPT/HCPCS: 36600; 71045; 71275; 74177; 76937; 80048; 80053; 81001; 82550; 82805; 83605; 83690; 83735; 83880; 84443; 84484; 85025; 85610; 85730; 86850; 86900; 86901; 87040; 87077; 87086; 87186; 87205; 87493; 93005; 93306; 94002; 94060; 94640; 94664; 96361; 96374; 96375; J0153; J0696; J1160; J2543; J7040; J7613; Q9967

== ENCOUNTER 2018-06-06 22:14 | Inpatient (IN) ==
[2018-06-06] MEDS ORDERED: Vancomycin Inj 1,000 MG in Sodium Chlor 0.9% Inj 250 ML IV.SIG STA (22:33)
[2018-06-06] MEDS ORDERED: Piperacil/Tazo 4.5 GM Premix 4.5 GM/100 ML BAG IV.SIG STA (22:33)
[2018-06-06 22:48] LABS: Baso % (Auto) 0.2 % (0.0-2.0); Eos % (Auto) 0.1 % (0.0-4.0); Hematocrit 42.1 % (35.0-46.0); Hemoglobin 13.9 gm/dL (11.6-15.3); Lymph # (Auto) 0.2 th/mm3 (1.0-4.8); Lymph % (Auto) 2.9 % (9.0-44.0); Mean Corpuscular Hemoglobin 31.7 pg (27.0-34.0); Mean Corpuscular Volume 96.1 fL (80.0-100.0); Mean Platelet Volume 9.2 fL (7.0-11.0); Mono # (Auto) 0.4 th/mm3 (0.0-0.9); Neut # (Auto) 7.7 th/mm3 (1.8-7.7); Neut % (Auto) 91.8 % (16.0-70.0); Platelet Count 68 th/mm3 (150-450); Red Blood Count 4.39 mil/mm3 (4.00-5.30); Red Cell Distribution Width 14.6 % (11.6-17.2); White Blood Count 8.3 th/mm3 (4.0-11.0)
--- NOTE | 2018-06-06 22:49 | ED ---
HPI General Chief complaint: Fever Stated complaint: Fever Time Seen by Provider: 06/06/18 22:35 Source: patient, EMS, RN notes reviewed and old records reviewed Mode of arrival: EMS Limitations: altered mental status History of Present Illness HPI narrative: Is a 67-year-old woman who presents to the emergency department brought in from [facility] after on routine vital signs they found her to be more hypoxic and hypothermic. She had a fever of 102, respiratory rate of 32, and oxygen saturations were in the 60s and 70s. She has extensive medical history including COPD, weakness, heart failure, A. fib, hypertension, depression, and anxiety. Patient states that she is not sure why she is here. She had improvement in her oxygen saturations on nonrebreather, was given IV fluid. Related Data Home Medications Medication Instructions Recorded Confirmed apixaban [Eliquis] 5 mg PO BID 06/07/18 06/07/18 clotrimazole-betamethasone 1 applic TOPICAL BID 06/07/18 06/07/18 [Lotrisone] digoxin 0.125 mg PO DAILY 06/07/18 06/07/18 escitalopram oxalate 10 mg PO DAILY 06/07/18 06/07/18 melatonin 6 mg PO HS PRN 06/07/18 06/07/18 metoprolol tartrate 25 mg PO BID 06/07/18 06/07/18 Allergies Allergy/AdvReac Type Severity Reaction Status Date / Time codeine Allergy Unknown Verified 11/10/17 04:15 Sulfa (Sulfonamide Allergy Unknown Verified 11/10/17 04:15 Antibiotics) tetanus toxoid, adsorbed Allergy Unknown Verified 11/10/17 04:15 vancomy Allergy Unknown Uncoded 11/10/17 04:12 Review of Systems ROS Unobtainable ROS Unobtainable: unobtainable due to mental condition PMFSH History History Provided By: Medical Record Medical History Medical History Anxiety (Acute) COPD exacerbation (Acute) Depression (Acute) GERD (gastroesophageal reflux disease) (Acute) Heart failure (Acute) Hypertension (Acute) Sleep apnea (Acute) Spinal stenosis (Acute) Social History Social History Substance History: Unable to Obtain Smoking Status: Cognitive impairment How Often Do You Have a Drink Containing Alcohol: Unable to Obtain Recent Travel in [facility] within the Last 8 Weeks: No Recent Out of Country Travel within the Last 8 Weeks: No Exam Narrative Exam Narrative: GENERAL: 67-year-old woman, ill-appearing, tachypnea, sluggish responsiveness SKIN: Focused skin assessment warm/dry. There is a patchy area of erythema warmth and tenderness on the left thigh. This was marked. Extends backward into the buttock. Not clearly indurated. No wounds or evidence of abscess. Pain with any movement of the leg. HEAD: Atraumatic. Normocephalic. EYES: Pupils equal and round. No scleral icterus. No injection or drainage. ENT: No nasal bleeding or discharge. Mucous membranes pink and moist. NECK: Trachea midline. No JVD. CARDIOVASCULAR: Heart rate rapid, regular. RESPIRATORY: Tachypnea. Coarse breath sounds in the posterior lung castorena. Distant breath sounds. GASTROINTESTINAL: Abdomen is obese and soft. No distention. Is no apparent tenderness. MUSCULOSKELETAL: No obvious deformities. No appreciable edema. NEUROLOGICAL: Awake with decreased alertness. No gross deficits. Course Initial Documented Vital Signs Temperature 102.9 F H 06/06/18 22:23 Pulse Rate 128 H 06/06/18 22:23 Respiratory Rate 22 06/06/18 22:23 Blood Pressure 175/80 H 06/06/18 22:23 Pulse Oximetry 90 L 06/06/18 22:23 Last Documented Vital Signs Temperature 102.9 F H 06/06/18 22:23 Pulse Rate 128 H 06/06/18 22:23 Respiratory Rate 22 06/06/18 22:23 Blood Pressure 175/80 H 06/06/18 22:23 Pulse Oximetry 88 L 06/06/18 22:38 Medical Decision Making MDM Narrative Medical decision making narrative: 67-year-old woman, appears to be somewhat altered in the setting of hypoxia and tachypnea fever. Suspect pneumonia. Also some patchy erythema on her left thigh that could represent soft tissue infection. Plan sepsis workup, empiric antibiotics, IV fluids, admission. Medical Screen Exam Complete: Yes Emergency Medical Condition: Yes Lab Data Result diagrams: 06/06/18 22:35 06/06/18 22:35 Lab Results 06/06/18 06/06/18 06/06/18 Range/Units 22:35 22:35 22:35 WBC 8.3 (4.0-11.0) th/mm3 RBC 4.39 (4.00-5.30) mil/mm3 Hgb 13.9 (11.6-15.3) gm/dL Hct 42.1 (35.0-46.0) % MCV 96.1 (80.0-100.0) fL MCH 31.7 (27.0-34.0) pg MCHC 33.0 (32.0-36.0) % RDW 14.6 (11.6-17.2) % Plt Count 68 L (150-450) th/mm3 MPV 9.2 (7.0-11.0) fL Prelim Diff (Auto) Slide review pending Neut % (Auto) 91.8 H (16.0-70.0) % Lymph % (Auto) 2.9 L (9.0-44.0) % [place] % (Auto) 5.0 (0.0-8.0) % Eos % (Auto) 0.1 (0.0-4.0) % Baso % (Auto) 0.2 (0.0-2.0) % Neut # (Auto) 7.7 (1.8-7.7) th/mm3 Lymph # (Auto) 0.2 L (1.0-4.8) th/mm3 [place] # (Auto) 0.4 (0.0-0.9) th/mm3 Eos # (Auto) 0.0 (0.0-0.4) th/mm3 Baso # (Auto) 0.0 (0.0-0.2) th/mm3 WBC Differential Manual diff final Seg Neuts % (Manual) 81 H (16-70) % Band Neuts % (Manual) 13 H (0-6) % Lymphocytes % (Manual) 3 L (9-44) % Monocytes % (Manual) 1 (0-8) % Basophils % (Manual) 1 (0-2) % Metamyelocytes % (Man) 1 (0-1) % Abs Neuts (Manual) 7.9 H (1.8-7.7) th/mm3 Differential Comment . Platelet Estimate Low L (Normal) Platelet Morphology Normal (Normal) Basophilic Stippling Faint H (None) Ovalocytes 1+ H (None) PT 10.4 (9.8-11.6) sec INR 1.0 Ratio APTT 32.6 H (23.4-31.7) sec Puncture Site Patient Temperature O2 Saturation (90-100) % ABG pH (7.380-7.420) ABG pCO2 (38-42) mmHg ABG pO2 (61-120) mmHg ABG HCO3 (22-26) mmol/L ABG O2 Content (12.0-20.0) Vol % ABG Base Excess (-2-2) mmol/L ABG Methemoglobin (0-2) % Gene Test Hemoglobin (12.0-16.0) G/DL Carboxyhemoglobin (0-4) % O2 Delivery Device Inspired O2 % Critical Value Sodium 139 (136-145) meq/L Potassium 4.2 (3.5-5.1) meq/L Chloride 98 (98-107) meq/L Carbon Dioxide 35.2 H (21.0-32.0) meq/L Anion Gap 6 (5-15) meq/L BUN 13 (7-18) mg/dL Creatinine 0.36 L (0.50-1.00) mg/dL Estimated GFR Greater than 89 (>89) mL/min POC Glucose (68-110) mg/dl Random Glucose 145 H (74-106) mg/dL Lactic Acid (0.4-2.0) mmol/L Calcium 8.5 (8.5-10.1) mg/dL Magnesium 1.7 (1.5-2.5) mg/dL Total Bilirubin 0.4 (0.2-1.0) mg/dL AST 21 (15-37) U/L ALT 13 (10-53) U/L Alkaline Phosphatase 86 (45-117) U/L Troponin I Less than 0.02 L (0.02-0.05) ng/mL Total Protein 7.1 (6.4-8.2) g/dL Albumin 2.8 L (3.4-5.0) g/dL Lipase 42 L (73-393) U/L 06/06/18 06/06/18 06/07/18 Range/Units 22:35 22:54 00:05 WBC (4.0-11.0) th/mm3 RBC (4.00-5.30) mil/mm3 Hgb (11.6-15.3) gm/dL Hct (35.0-46.0) % MCV (80.0-100.0) fL MCH (27.0-34.0) pg MCHC (32.0-36.0) % RDW (11.6-17.2) % Plt Count (150-450) th/mm3 MPV (7.0-11.0) fL Prelim Diff (Auto) Neut % (Auto) (16.0-70.0) % Lymph % (Auto) (9.0-44.0) % [place] % (Auto) (0.0-8.0) % Eos % (Auto) (0.0-4.0) % Baso % (Auto) (0.0-2.0) % Neut # (Auto) (1.8-7.7) th/mm3 Lymph # (Auto) (1.0-4.8) th/mm3 [place] # (Auto) (0.0-0.9) th/mm3 Eos # (Auto) (0.0-0.4) th/mm3 Baso # (Auto) (0.0-0.2) th/mm3 WBC Differential Seg Neuts % (Manual) (16-70) % Band Neuts % (Manual) (0-6) % Lymphocytes % (Manual) (9-44) % Monocytes % (Manual) (0-8) % Basophils % (Manual) (0-2) % Metamyelocytes % (Man) (0-1) % Abs Neuts (Manual) (1.8-7.7) th/mm3 Differential Comment Platelet Estimate (Normal) Platelet Morphology (Normal) Basophilic Stippling (None) Ovalocytes (None) PT (9.8-11.6) sec INR Ratio APTT (23.4-31.7) sec Puncture Site Right radial Patient Temperature 98.6 O2 Saturation 88 L* (90-100) % ABG pH 7.35 L (7.380-7.420) ABG pCO2 65 H* (38-42) mmHg ABG pO2 64 (61-120) mmHg ABG HCO3 35 H (22-26) mmol/L ABG O2 Content 17.0 (12.0-20.0) Vol % ABG Base Excess 9.6 H (-2-2) mmol/L ABG Methemoglobin 1.3 (0-2) % Gene Test Present Hemoglobin 13.8 (12.0-16.0) G/DL Carboxyhemoglobin 1.8 (0-4) % O2 Delivery Device Venti mask Inspired O2 50 % Critical Value Yes Sodium (136-145) meq/L Potassium (3.5-5.1) meq/L Chloride (98-107) meq/L Carbon Dioxide (21.0-32.0) meq/L Anion Gap (5-15) meq/L BUN (7-18) mg/dL Creatinine (0.50-1.00) mg/dL Estimated GFR (>89) mL/min POC Glucose 126 H (68-110) mg/dl Random Glucose (74-106) mg/dL Lactic Acid 0.7 (0.4-2.0) mmol/L Calcium (8.5-10.1) mg/dL Magnesium (1.5-2.5) mg/dL Total Bilirubin (0.2-1.0) mg/dL AST (15-37) U/L ALT (10-53) U/L Alkaline Phosphatase (45-117) U/L Troponin I (0.02-0.05) ng/mL Total Protein (6.4-8.2) g/dL Albumin (3.4-5.0) g/dL Lipase (73-393) U/L Imaging Data Radiologist's impression: Chest X-Ray 06/06/18 22:33 CONCLUSION: Cardiomegaly with basilar atelectasis. Tortuous aorta. Hip X-Ray 06/06/18 22:50 CONCLUSION: Left total hip prosthesis in good position. ECG Data Attestation: I personally reviewed and interpreted this ECG as follows: Interpretation: Sinus tachycardia rate of 133, bili right bundle branch block, nonspecific anterior precordial ST depressions could be ischemia. Discharge Plan Discharge Order Discharge Orders: ED Use Only Admit Order (Routine); Ordered 06/07/18 Ordered By: Elliot Scott Physicians Team ED Provider: Elliot Scott Primary Care Provider: Steff Milan Attending Provider: Louisa Lindsay Rxs /Orders / Referrals /Forms Prescriptions: No Action melatonin 3 mg Tablet 6 mg PO HS PRN (Reason: Insomnia) RF: 0 clotrimazole-betamethasone [Lotrisone] 1-0.05 % Cream 1 applic TOPICAL BID RF: 0 digoxin 125 mcg Tablet 0.125 mg PO DAILY RF: 0 escitalopram oxalate 10 mg Tablet 10 mg PO DAILY RF: 0 metoprolol tartrate 25 mg Tablet 25 mg PO BID RF: 0 apixaban [Eliquis] 5 mg Tablet 5 mg PO BID RF: 0 Status ED Status: Admitted Patient
--- NOTE | 2018-06-06 22:54 | XR ---
EXAM DATE: 06/06/2018 10:51 PM EST AGE/SEX: 67 years / Female INDICATIONS: Fever. CLINICAL DATA: This is the patient's initial encounter. Patient reports that signs and symptoms have been present for 1 day and indicates a pain score of Nonresponsive. MEDICAL/SURGICAL HISTORY: . Congestive heart failure. Chronic obstructive pulmonary disease. None. [place]PAR[place] [facility] [place]. . FINDINGS: A single AP view of the chest demonstrates minimal basilar density, probably atelectasis. No effusion . No pneumothorax. Heart size upper limits normal. Tortuous aorta. CONCLUSION: Cardiomegaly with basilar atelectasis. Tortuous aorta. Electronically signed by: Ced Cason MD Board Certified Radiologist 06/06/2018 10:53 PM EST
[2018-06-06 23:00] LABS: Activated Partial Thrombo Time 32.6 sec (23.4-31.7); Prothrombin Time 10.4 sec (9.8-11.6)
[2018-06-06 23:08] LABS: Alanine Aminotransferase 13 U/L (10-53); Albumin 2.8 g/dL (3.4-5.0); Anion Gap 6 meq/L (5-15); Aspartate Aminotransferase 21 U/L (15-37); Blood Urea Nitrogen 13 mg/dL (7-18); Calcium 8.5 mg/dL (8.5-10.1); Carbon Dioxide 35.2 meq/L (21.0-32.0); Chloride 98 meq/L (98-107); Glomerular Filtration Rate Greater Than 89 mL/min (>89); Glucose,Random 145 mg/dL (74-106); Lipase 42 U/L (73-393); Magnesium 1.7 mg/dL (1.5-2.5); Potassium 4.2 meq/L (3.5-5.1); Sodium 139 meq/L (136-145)
[2018-06-06 23:13] LABS: Alkaline Phosphatase 86 U/L (45-117); Total Protein 7.1 g/dL (6.4-8.2)
[2018-06-06 23:30] LABS: Lymphocytes 3 % (9-44); Metamyelocytes 1 % (0-1); Monocytes 1 % (0-8)
[2018-06-06 23:31] LABS: Ovalocytes 1+; Platelet Morphology Normal (Normal)
--- NOTE | 2018-06-06 23:35 | XR ---
EXAM DATE: 06/06/2018 11:12 PM EST AGE/SEX: 67 years / Female INDICATIONS: Pain. CLINICAL DATA: This is the patient's subsequent encounter. Patient reports that signs and symptoms h ave been present for 1 day and indicates a pain score of Nonresponsive. MEDICAL/SURGICAL HISTORY: . Congestive heart failure. Chronic obstructive pulmonary disease . Left hip replacement. COMPARISON: No prior exams available for comparison. FINDINGS: The patient has a left hip prosthesis in place. The acetabular component is secured by 3 screws direc leighton superiorly. The prosthetic components appear aligned. An acute fracture is not seen. CONCLUSION: Left total hip prosthesis in good position. Electronically signed by: Steve Pineda MD Board Certified Radiologist 06/06/2018 11:34 PM EST
[2018-06-07 00:16] LABS: ABG Base Excess 9.6 mmol/L (-2-2); ABG PCO2 65 mmHg (38-42); ABG PO2 64 mmHg (61-120)
[2018-06-07 00:59] LABS: Bilirubin,Urine Negative (Negative); Clarity,Urine Clear (Clear); Color,Urine Yellow (Yellw/Straw); Glucose,Urine (UA) Negative (Negative); Hyaline Casts,Urine 1 /lpf (0-3); Leukocyte Esterase,Urine Negative (Negative); Mucus,Urine Few /lpf (Occasional); Nitrite,Urine Negative (Negative); Specific Gravity,Urine 1.029 (1.002-1.035); Squamous Epithelial Cell,Urine 1 /hpf (0-5)
[2018-06-07 01:01] LABS: Urobilinogen,Urine 0.2 mg/dL (Less than 2)
[2018-06-07] MEDS ORDERED: MethylPREDNISolone Sod Succinate Inj 125 MG/2 ML Vial IV.PUSH ONE (01:39)
[2018-06-07] MEDS ORDERED: Vancomycin Consult Pharmacy OTHER PRN (01:39)
[2018-06-07] MEDS ORDERED: Bisacodyl 10 MG Supp RECTAL PRN (01:41)
[2018-06-07] MEDS ORDERED: Acetaminophen 325 MG Tablet PO PRN (01:41)
[2018-06-07] MEDS: Sod Chloride 0.9% Inj 1,000 ML IV.CONT SCH ×3 (02:09→23:33)
[2018-06-07] MEDS ORDERED: Melatonin 5 MG Tablet PO PRN (02:15)
[2018-06-07] MEDS ORDERED: Butalbital/APAP/Caff 50/325/40 MG Tablet PO PRN (02:30)
--- NOTE | 2018-06-07 02:36 | P.HP ---
History of Present Illness Service: [facility] Primary Care Physician: Steff Milan DO History of Present Illness: 67-year-old female with a past medical history significant for COPD, CHF, atrial fibrillation anticoagulated on Eliquis, hypertension, depression/anxiety , migraines and REI presents to the emergency department for the evaluation of hypoxia and fever. The patient is a resident at [facility] and during routine vital signs they found her to have a respiratory rate of 32, temperature of 102 and oxygen saturations in the 60s-70s. At the time of our interview, the patient declares that she "has a headache." She does not answer any of my questions about shortness of breath or chest pain. No signs on arrival to the emergency department: Temperature 102.9 rectal, pulse 128, respirations 22, BP 175/80, pulse ox 90% on 6 L nonrebreather. Inpatient Certification: I certify that the inpatient services were ordered in accordance with Medicare regulations governing the order. This includes certification that hospital inpatient services are reasonable and necessary and in the case of services not specified as inpatient-only under 42 CFR 419.22(n), that they are appropriately provided as inpatient services in accordance to with the 2-midnight benchmark under 43 CFR 412.3(e) Estimated Total Length of Stay (Days): 2 Plans for Post Hospital Care: Not yet determined Review of Systems unobtainable due to mental condition PMFSH - History History Provided By: Medical Record - Medical History Medical History: Medical History (Last Updated 06/07/18 @ 02:31 by Louisa Lindsay MD) Atrial fibrillation Surgical history unknown Anxiety COPD exacerbation Depression GERD (gastroesophageal reflux disease) Heart failure Hypertension Sleep apnea Spinal stenosis - Family History Family History: Family History (Last Reviewed 06/07/18 @ 02:31 by Louisa Lindsay MD) Other Family history unknown - Social History I have reviewed the patient's Social History: Yes - Tobacco History Smoking Status: Cognitive impairment - Alcohol History How Often Do You Have a Drink Containing Alcohol: Unable to Obtain - Substance Use History Substance History: Unable to Obtain - Travel History Recent Travel in the [facility] Within the Last 8 Weeks: No Recent Travel Out of the Country Within the Last 8 Weeks: No - Immunization History Tetanus Immunization: Unable to Assess Medications and Allergies Active Medications: Active Medications Acetaminophen (Tylenol) 650 mg PO Q4H PRN PRN Reason: Temp > 100.4 Al Hydroxide/Mg Hydroxide (Milk Of Magnesia Liq) 30 ml PO Q12H PRN PRN Reason: Mild Constipation Albuterol (Duoneb Neb (Prn)) 1 ampul NEB Q4HR NEB PRN PRN Reason: SOB/Wheezing Apixaban (Eliquis) 5 mg PO BID [facility] Bisacodyl (Dulcolax Supp) 10 mg RECTAL DAILY PRN PRN Reason: SEVERE CONSITIPATION Digoxin (Lanoxin) 125 mcg PO DAILY [facility] Escitalopram Oxalate (Lexapro) 10 mg PO DAILY [facility] Azithromycin 500 mg/ Sodium (Chloride) 250 mls @ 250 mls/hr IV.SIG Q24H [facility] Sodium Chloride (Ns Inj) 1,000 mls @ 100 mls/hr IV.CONT .Q10H [facility] Last Admin: 06/07/18 02:09 Dose: 100 mls/hr Piperacillin/Tazobactam/Dextrose (Zosyn 4.5 Gm Premix) 4.5 gm in 100 mls @ 200 mls/hr IV.SIG Q6H [facility] Lactulose (Lactulose Liq) 30 ml PO DAILY PRN PRN Reason: SEVERE CONSITIPATION Melatonin (Melatonin) 5 mg PO HS PRN PRN Reason: INSOMNIA Methylprednisolone Sodium Succinate (Solumedrol Inj) 40 mg IV.PUSH Q8HR [facility] Metoprolol Tartrate (Lopressor) 25 mg PO BID [facility] Non-Formulary Medication (Lmrtrrygbs-Hprcnubrpurei-Pgdo [Butalbital- Acetaminophen-Caff]) 1 cap PO Q4H PRN PRN Reason: Wheezing Ondansetron HCl (Zofran Inj) 4 mg IV.PUSH Q6H PRN PRN Reason: NAUSEA OR VOMITING Pharmacy Profile Note (Vancomycin Consult Pharmacy) 1 each OTHER UNSCH PRN PRN Reason: Pharmacy to dose Senna/Docusate Sodium (Cathy-Colace) 1 tab PO BID [facility] Sennosides (Senokot) 17.2 mg PO Q12H PRN PRN Reason: Moderate Constipation Sodium Chloride (Ns Flush) 2 ml IV.FLUSH BID [facility] Sodium Chloride (Ns Flush) 2 ml IV.FLUSH PRN PRN PRN Reason: FLUSH AFTER USING IV ACCESS Allergies Allergy/AdvReac Type Severity Reaction Status Date / Time codeine Allergy Unknown Verified 11/10/17 04:15 Sulfa (Sulfonamide Allergy Unknown Verified 11/10/17 04:15 Antibiotics) tetanus toxoid, adsorbed Allergy Unknown Verified 11/10/17 04:15 vancomy Allergy Unknown Uncoded 11/10/17 04:12 Home Medications Medication Instructions Recorded Confirmed Type albuterol sulfate [Ventolin HFA] 1 puff INHALATION Q4-6H PRN 06/07/18 06/07/18 History apixaban [Eliquis] 5 mg PO BID 06/07/18 06/07/18 History fdwpldqxth-ejyscwhdecgbq-ncua 1 cap PO Q4H PRN 06/07/18 06/07/18 History clotrimazole-betamethasone 1 applic TOPICAL BID 06/07/18 06/07/18 History [Lotrisone] digoxin 0.125 mg PO DAILY 06/07/18 06/07/18 History escitalopram oxalate 10 mg PO DAILY 06/07/18 06/07/18 History melatonin 6 mg PO HS PRN 06/07/18 06/07/18 History metoprolol tartrate 25 mg PO BID 06/07/18 06/07/18 History Exam Vital signs: Vital Signs 06/06/18 22:23 06/06/18 22:38 06/07/18 01:33 Temperature 102.9 F H 101.5 F H Pulse Rate 128 H 125 H Respiratory Rate 22 22 Blood Pressure 175/80 H 150/98 H Pulse Oximetry 90 L 88 L 06/07/18 02:16 Temperature 101.5 F H Pulse Rate Respiratory Rate Blood Pressure Pulse Oximetry Intake & Output 06/06/18 06/06/18 06/07/18 06:59 18:59 06:59 Intake Total 450 / 450 Balance 450 / 450 Intake: IV 450 / 450 Ofirmev Inj 1,000 mg In 100 ml 100 / 100 @ 400 mls/hr IV.SIG ONCE ONE Rx #:[id number] Zosyn 4.5 GM Premix 4.5 gm In 100 / 100 100 ml @ 200 mls/hr IV.SIG STAT STA Rx#:[id number] Vancomycin Inj 1,000 MG In NS 250 / 250 Inj 250 ML @ 250 mls/hr IV.SIG STAT STA Rx#:[id number] Narrative: Gen.: No acute distress Head: Normocephalic. Atraumatic. EENT: Pupils equal round and reactive to light. Nose without drainage. Airway intact. Throat without injection. Cardiovascular: Regular rate and rhythm. No murmurs, rubs or gallops. Respiratory: Bilateral wheezes throughout Abdomen: Soft, nontender, nondistended. No peritoneal signs. Musculoskeletal: No gross deformities. No edema. Skin: Large area of erythema on the lateral aspect of left thigh from hip to knee that is mildly warm to the touch. No induration or fluctuance. Neuro: Sensory and motor grossly intact. Cranial nerves II through XII grossly intact. Results - Labs CBC & Chem 7: 06/06/18 22:35 06/06/18 22:35 Labs: Laboratory Results - last 24 hr 06/06/18 06/06/18 06/06/18 22:35 22:35 22:35 WBC 8.3 RBC 4.39 Hgb 13.9 Hct 42.1 MCV 96.1 MCH 31.7 MCHC 33.0 RDW 14.6 Plt Count 68 L MPV 9.2 Prelim Diff (Auto) Slide review pending Neut % (Auto) 91.8 H Lymph % (Auto) 2.9 L [place] % (Auto) 5.0 Eos % (Auto) 0.1 Baso % (Auto) 0.2 Neut # (Auto) 7.7 Lymph # (Auto) 0.2 L [place] # (Auto) 0.4 Eos # (Auto) 0.0 Baso # (Auto) 0.0 WBC Differential Manual diff final Seg Neuts % (Manual) 81 H Band Neuts % (Manual) 13 H Lymphocytes % (Manual) 3 L Monocytes % (Manual) 1 Basophils % (Manual) 1 Metamyelocytes % (Man) 1 Abs Neuts (Manual) 7.9 H Differential Comment . Platelet Estimate Low L Platelet Morphology Normal Basophilic Stippling Faint H Ovalocytes 1+ H PT 10.4 INR 1.0 APTT 32.6 H Puncture Site Patient Temperature O2 Saturation ABG pH ABG pCO2 ABG pO2 ABG HCO3 ABG O2 Content ABG Base Excess ABG Methemoglobin Gene Test Hemoglobin Carboxyhemoglobin O2 Delivery Device Inspired O2 Critical Value Sodium 139 Potassium 4.2 Chloride 98 Carbon Dioxide 35.2 H Anion Gap 6 BUN 13 Creatinine 0.36 L Estimated GFR Greater than 89 POC Glucose Random Glucose 145 H Lactic Acid Calcium 8.5 Magnesium 1.7 Total Bilirubin 0.4 AST 21 ALT 13 Alkaline Phosphatase 86 Troponin I Less than 0.02 L Total Protein 7.1 Albumin 2.8 L Lipase 42 L Urine Color Urine Clarity Urine pH Ur Specific [place] Urine Protein Urine Glucose (UA) Urine Ketones Urine Occult Blood Urine Nitrate Urine Bilirubin Urine Urobilinogen Ur Leukocyte Esterase Urine RBC Urine WBC Ur Squamous Epith Cells Hyaline Casts Urine Mucus Micro UA Comment Ur Microscopic Review Urine Culture Comments 06/06/18 06/06/18 06/07/18 22:35 22:54 00:05 WBC RBC Hgb Hct MCV MCH MCHC RDW Plt Count MPV Prelim Diff (Auto) Neut % (Auto) Lymph % (Auto) [place] % (Auto) Eos % (Auto) Baso % (Auto) Neut # (Auto) Lymph # (Auto) [place] # (Auto) Eos # (Auto) Baso # (Auto) WBC Differential Seg Neuts % (Manual) Band Neuts % (Manual) Lymphocytes % (Manual) Monocytes % (Manual) Basophils % (Manual) Metamyelocytes % (Man) Abs Neuts (Manual) Differential Comment Platelet Estimate Platelet Morphology Basophilic Stippling Ovalocytes PT INR APTT Puncture Site Right radial Patient Temperature 98.6 O2 Saturation 88 L* ABG pH 7.35 L ABG pCO2 65 H* ABG pO2 64 ABG HCO3 35 H ABG O2 Content 17.0 ABG Base Excess 9.6 H ABG Methemoglobin 1.3 Gene Test Present Hemoglobin 13.8 Carboxyhemoglobin 1.8 O2 Delivery Device Venti mask Inspired O2 50 Critical Value Yes Sodium Potassium Chloride Carbon Dioxide Anion Gap BUN Creatinine Estimated GFR POC Glucose 126 H Random Glucose Lactic Acid 0.7 Calcium Magnesium Total Bilirubin AST ALT Alkaline Phosphatase Troponin I Total Protein Albumin Lipase Urine Color Urine Clarity Urine pH Ur Specific [place] Urine Protein Urine Glucose (UA) Urine Ketones Urine Occult Blood Urine Nitrate Urine Bilirubin Urine Urobilinogen Ur Leukocyte Esterase Urine RBC Urine WBC Ur Squamous Epith Cells Hyaline Casts Urine Mucus Micro UA Comment Ur Microscopic Review Urine Culture Comments 06/07/18 00:30 WBC RBC Hgb Hct MCV MCH MCHC RDW Plt Count MPV Prelim Diff (Auto) Neut % (Auto) Lymph % (Auto) [place] % (Auto) Eos % (Auto) Baso % (Auto) Neut # (Auto) Lymph # (Auto) [place] # (Auto) Eos # (Auto) Baso # (Auto) WBC Differential Seg Neuts % (Manual) Band Neuts % (Manual) Lymphocytes % (Manual) Monocytes % (Manual) Basophils % (Manual) Metamyelocytes % (Man) Abs Neuts (Manual) Differential Comment Platelet Estimate Platelet Morphology Basophilic Stippling Ovalocytes PT INR APTT Puncture Site Patient Temperature O2 Saturation ABG pH ABG pCO2 ABG pO2 ABG HCO3 ABG O2 Content ABG Base Excess ABG Methemoglobin Gene Test Hemoglobin Carboxyhemoglobin O2 Delivery Device Inspired O2 Critical Value Sodium Potassium Chloride Carbon Dioxide Anion Gap BUN Creatinine Estimated GFR POC Glucose Random Glucose Lactic Acid Calcium Magnesium Total Bilirubin AST ALT Alkaline Phosphatase Troponin I Total Protein Albumin Lipase Urine Color Yellow Urine Clarity Clear Urine pH 5.0 Ur Specific [place] 1.029 Urine Protein 30 H Urine Glucose (UA) Negative Urine Ketones 80 or greater H Urine Occult Blood Negative Urine Nitrate Negative Urine Bilirubin Negative Urine Urobilinogen 0.2 Ur Leukocyte Esterase Negative Urine RBC 2 Urine WBC 2 Ur Squamous Epith Cells 1 Hyaline Casts 1 Urine Mucus Few H Micro UA Comment Cath-culture not ind Ur Microscopic Review Not Reportable Urine Culture Comments Cath-cult not ind - Imaging Impressions Chest X-Ray 06/06/18 22:33 CONCLUSION: Cardiomegaly with basilar atelectasis. Tortuous aorta. Hip X-Ray 06/06/18 22:50 CONCLUSION: Left total hip prosthesis in good position. Caprini VTE Risk Assessment Caprini VTE Risk Assessment: Moderate/High Risk (score >= 2) Caprini Risk Assessment Model: Point Value = 1 Point Value = 2 Point Value = 3 Point Value = 5 Age 41-60 Minor surgery BMI > 25 kg/m2 Swollen legs Varicose veins or History of unexplained or recurrent spontaneous Oral contraceptives or hormone replacement Sepsis (< 1 month) Serious lung disease, including pneumonia (< 1 month) Abnormal pulmonary function Acute myocardial infarction Congestive heart failure (< 1 month) History of inflammatory bowel disease Medical patient at bed rest Age 61-74 Arthroscopic surgery Major open surgery (> 45 min) Laparoscopic surgery (> 45 min) Malignancy Confined to bed (> 72 hours) Immobilizing plaster cast Central venous access Age >= 75 History of VTE Family history of VTE Factor V Leiden Prothrombin [id number] Lupus anticoagulant Anticardiolipin antibodies Elevated serum homocysteine Heparin-induced thrombocytopenia Other congenital or acquired thrombophilia Stroke (< 1 month) Elective arthroplasty Hip, pelvis, or leg fracture Acute spinal cord injury (< 1 month) Prophylaxis Regimen: Total Risk Factor Score Risk Level Prophylaxis Regimen 0-1 Low Early ambulation 2 Moderate Order ONE of the following: *Sequential Compression Device (SCD) *Heparin 5000 units SQ BID 3-4 Higher Order ONE of the following medications: *Heparin 5000 units SQ TID *Enoxaparin/Lovenox 40 mg SQ daily (WT < 150 kg, CrCl > 30 mL/min) *Enoxaparin/Lovenox 30 mg SQ daily (WT < 150 kg, CrCl > 10-29 mL/min) *Enoxaparin/Lovenox 30 mg SQ BID (WT < 150 kg, CrCl > 30 mL/min) AND/OR *Sequential Compression Device (SCD) 5 or more Highest Order ONE of the following medications: *Heparin 5000 units SQ TID (Preferred with Epidurals) *Enoxaparin/Lovenox 40 mg SQ daily (WT < 150 kg, CrCl > 30 mL/min) *Enoxaparin/Lovenox 30 mg SQ daily (WT < 150 kg, CrCl > 10-29 mL/min) *Enoxaparin/Lovenox 30 mg SQ BID (WT < 150 kg, CrCl > 30 mL/min) AND *Sequential Compression Device (SCD) Assessment and Plan - Plan Assessment/plan: 1. Sepsis Patient febrile, tachycardic, hypoxic Blood cultures pending Chest x-ray shows cardiomegaly with minimal basilar density, personally reviewed Concern for healthcare associated pneumonia given fever, hypoxia Vancomycin, Zosyn, azithromycin UA negative 2. COPD exacerbation Patient with bilateral wheezes and hypoxia Antibiotics as above Duo nebs IV steroids Supplemental oxygen 3. Atrial fibrillation Continue anticoagulation with Eliquis Continue digoxin, metoprolol 4. Headache Continue Fioricet FEN Heart healthy diet Electrolytes: Monitor and replete as needed Eliquis NS at 100 cc/hour DNR
[2018-06-07] MEDS: Azithromycin Inj 500 MG in Sodium Chlor 0.9% Inj 250 ML IV.SIG SCH (03:57)
[2018-06-07] MEDS: Piperacil/Tazo 4.5 GM Premix 4.5 GM/100 ML BAG IV.SIG SCH ×4 (05:55→22:11)
[2018-06-07] MEDS: Senna/Docusate Sodium 8.6/50 MG Tablet PO SCH ×2 (09:35→20:01)
[2018-06-07] MEDS: Digoxin 125 MCG Tablet PO SCH (09:35)
[2018-06-07] MEDS: Metoprolol Tartrate 25 MG Tablet PO SCH ×2 (09:35→20:00)
[2018-06-07] MEDS: Escitalopram 10 MG Tablet PO SCH (09:35)
--- NOTE | 2018-06-07 09:53 | ECG ---
Date Performed: 06/06/2018 Time Performed: 22:36:42 PTAGE: 67 years EKG: SINUS TACHYCARDIA PATTERN CONSISTENT WITH PULMONARY DISEASE POSSIBLE RIGHT VENTRICULAR COND UCTION DELAY LEFT ANTERIOR FASCICULAR BLOCK INFERIOR MYOCARDIAL INFARCTION ST DEVIATION AND MODERATE T-WAVE ABNORMALITY, CONSIDER ANTERIOR ISCHEMIA ABNORMAL ECG PREVIOUS TRACING : 11/10/2017 04.10 DOCTOR: Elliot Bella Interpretating Date/Time 06/07/2018 09:50:52
[2018-06-07] MEDS: Vancomycin Inj 1,750 MG in Sodium Chlor 0.9% Inj 500 ML IV.SIG SCH ×2 (12:09→23:58)
[2018-06-07] MEDS: MethylPREDNISolone Sod Succinate Inj 40 MG/ML Vial IV.PUSH SCH ×2 (14:07→21:16)
--- NOTE | 2018-06-07 20:19 | P.PNIM ---
64-year-old female admitted with acute exacerbation COPD and suspected pneumonia with sepsis, acute hypoxic respiratory failure, transferred to the MICU early this morning. Patient was seen and evaluated chart was reviewed in detail, case was discussed with nursing at bedside, patient was on a Ventimask and quite sedated, fevers have improved, and patient was asking for her Percocet , coming more alert. Patient also was noted to have significant erythema and induration the left lateral hip to lateral knee, demarcation was noted with significant improvement of area of erythema from marked borders on admission. Patient states she has history of cellulitis of bilateral lower extremities in the past and has been on IV antibiotics for them and followed up with outpatient infectious disease, but she cannot recall timing of this. She denies fall or injury or any open wounds. Patient has history of prosthetic right hip. And significant peripheral vascular disease and chronic pain to left lower extremity. We will continue to monitor, continue antibiotics for cellulitis appropriate coverage, await blood cultures., Pulmonary status appears to be improving.
[2018-06-08] MEDS: Azithromycin Inj 500 MG in Sodium Chlor 0.9% Inj 250 ML IV.SIG SCH (03:07)
[2018-06-08] MEDS: Chlorhexidine Gluconate 2% 1 Pack (2 Cloths) TOPICAL SCH (03:08)
[2018-06-08] MEDS ORDERED: Chlorhexidine Gluconate 2% 1 Pack (2 Cloths) TOPICAL PRN (04:00)
[2018-06-08] MEDS: Piperacil/Tazo 4.5 GM Premix 4.5 GM/100 ML BAG IV.SIG SCH ×4 (04:36→22:12)
[2018-06-08] MEDS: MethylPREDNISolone Sod Succinate Inj 40 MG/ML Vial IV.PUSH SCH (05:12)
[2018-06-08 08:09] LABS: Baso % (Auto) 0.1 % (0.0-2.0); Hematocrit 36.7 % (35.0-46.0); Hemoglobin 12.3 gm/dL (11.6-15.3); Lymph # (Auto) 0.4 th/mm3 (1.0-4.8); Lymph % (Auto) 10.5 % (9.0-44.0); Mean Corpuscular HGB Conc 33.6 % (32.0-36.0); Mean Corpuscular Hemoglobin 32.1 pg (27.0-34.0); Mean Corpuscular Volume 95.6 fL (80.0-100.0); Mean Platelet Volume 9.6 fL (7.0-11.0); Mono # (Auto) 0.2 th/mm3 (0.0-0.9); Mono % (Auto) 5.2 % (0.0-8.0); Neut # (Auto) 3.2 th/mm3 (1.8-7.7); Neut % (Auto) 84.2 % (16.0-70.0); Platelet Count 67 th/mm3 (150-450); Red Blood Count 3.83 mil/mm3 (4.00-5.30); Red Cell Distribution Width 14.5 % (11.6-17.2); White Blood Count 3.8 th/mm3 (4.0-11.0)
[2018-06-08 08:40] LABS: Anion Gap 3 meq/L (5-15); Blood Urea Nitrogen 15 mg/dL (7-18); Calcium 8.2 mg/dL (8.5-10.1); Carbon Dioxide 35.6 meq/L (21.0-32.0); Chloride 106 meq/L (98-107); Glomerular Filtration Rate Greater Than 89 mL/min (>89); Glucose,Random 119 mg/dL (74-106); Potassium 4.3 meq/L (3.5-5.1); Sodium 145 meq/L (136-145)
[2018-06-08] MEDS: Sod Chloride 0.9% Inj 1,000 ML IV.CONT SCH ×3 (09:14→19:57)
[2018-06-08] MEDS: Senna/Docusate Sodium 8.6/50 MG Tablet PO SCH ×2 (09:19→21:43)
[2018-06-08] MEDS: Escitalopram 10 MG Tablet PO SCH (09:19)
[2018-06-08 09:21] LABS: Lymphocytes 8 % (9-44); Monocytes 3 % (0-8)
[2018-06-08 09:22] LABS: Platelet Morphology Normal (Normal)
[2018-06-08] MEDS: Digoxin 125 MCG Tablet PO SCH (09:24)
[2018-06-08] MEDS: Metoprolol Tartrate 25 MG Tablet PO SCH ×2 (09:25→21:43)
[2018-06-08] MEDS ORDERED: Pharmacy Ordered Lab Info OTHER ONE (10:45)
--- NOTE | 2018-06-08 11:11 | P.PNIM ---
Subjective Interval history: 64-year-old female admitted with acute exacerbation of COPD, pneumonia with sepsis Patient seen and examined, doing better today, denies shortness of breath, no cough, per nursing, was found to be bradycardic down to 37 went back up to the 40s and 50s upon awaking, patient denies chest pain, lightheadedness dizziness, patient states a Brooks manner she is basically bedbound and or wheelchair- bound at baseline. Physical Exam Vital signs: Last Vital Signs Temp 98.1 F 06/08/18 04:00 Pulse 45 L 06/08/18 08:00 Resp 15 06/08/18 04:00 BP 126/55 L 06/08/18 04:00 Pulse Ox 95 06/08/18 07:16 Intake & Output 06/06/18 06/07/18 06/08/18 06/09/18 06:59 06:59 06:59 06:59 Intake Total 920 / 920 4735.0 / 4735.0 1250 / 1250 Output Total 450 / 450 1275 / 1275 Balance 470 / 470 3460.0 / 3460.0 1250 / 1250 Weight 94 kg 98 kg Pleasant well-developed well-nourished 64-year-old female Awake alert oriented no acute distress Heart S1-S2 regular, bradycardic Lungs improved air movement, no wheeze, no rhonchi Abdomen soft nondistended positive bowel sounds nontender Extremities erythema improved left lateral, no significant tenderness, some anasarca independent hip and buttocks, distal left lower extremity no edema, diminished pulses chronically, no calf tenderness Urinary Catheter Management Indwelling Urethral Catheter: Cath placed during this visit: yes Urethral indwelling: No Insertion date: 06/07/18 Insertion time: 00:35 Results Labs CBC & Chem 7: 06/08/18 07:45 06/08/18 07:45 Labs: Microbiology 06/06/18 22:30 Blood - Peripheral Aerobic Blood Culture - Preliminary No growth in 2 days 06/06/18 22:30 Blood - Peripheral Anaerobic Blood Culture - Preliminary No growth in 2 days 06/06/18 22:35 Blood - Peripheral Aerobic Blood Culture - Preliminary No growth in 2 days 06/06/18 22:35 Blood - Peripheral Anaerobic Blood Culture - Preliminary No growth in 2 days Assessment and Plan Plan SEPSIS due to suspected pna HYPOXIC RESP FAILURE acute on chronic PNA - cont pulm tx, abx, fu sputum cx COPD severe GOLD stage 3 per prior pft FEV1 30%, w acute exacerbation AFIB chronic on eliquis BRADYCARDIA - hold dig and metoprolol, will monitor on tele, cardiology eval prn , hx of afib,flutter in past, ppm eval if hr doesnt rebound while holding dig , metoprolol THROMBOCYTOPENIA w acute drop likely due to sepsis , but need to monitor closely while on eliquis, if drops further will need to hold eliquis CELLULITIS left thigh - cont abx fu cx, improving HTN controlled MIGRAINES pain meds prn CHRONIC PAIN SYNDROME , spinal stensos chronic, PVD LLE chronic BED BOUND gait dysfunction chronic dvt prophylaxis - eliquis dispo - return to [facility] when stable, not ready for dc today Progress Note: Quality VTE Deep Vein Thrombosis/Pulmonary Embolism Present on Admission: No
[2018-06-08] MEDS: Tiotropium Bromide 18 MCG/ACT Inhaler INH SCH (14:36)
[2018-06-08] MEDS: Vancomycin Inj 1,750 MG in Sodium Chlor 0.9% Inj 500 ML IV.SIG SCH ×2 (17:55→22:54)
[2018-06-09] MEDS: Azithromycin Inj 500 MG in Sodium Chlor 0.9% Inj 250 ML IV.SIG SCH (03:16)
[2018-06-09 04:22] LABS: Baso % (Auto) 0.4 % (0.0-2.0); Eos % (Auto) 0.8 % (0.0-4.0); Hematocrit 40.2 % (35.0-46.0); Hemoglobin 12.3 gm/dL (11.6-15.3); Lymph # (Auto) 0.9 th/mm3 (1.0-4.8); Lymph % (Auto) 17.7 % (9.0-44.0); Mean Corpuscular Hemoglobin 31.1 pg (27.0-34.0); Mean Corpuscular Volume 101.5 fL (80.0-100.0); Mean Platelet Volume 9.9 fL (7.0-11.0); Mono # (Auto) 0.7 th/mm3 (0.0-0.9); Mono % (Auto) 13.5 % (0.0-8.0); Neut # (Auto) 3.5 th/mm3 (1.8-7.7); Neut % (Auto) 67.6 % (16.0-70.0); Platelet Count 72 th/mm3 (150-450); Red Blood Count 3.96 mil/mm3 (4.00-5.30); Red Cell Distribution Width 15.2 % (11.6-17.2); White Blood Count 5.2 th/mm3 (4.0-11.0)
[2018-06-09 04:28] LABS: Mean Corpuscular HGB Conc 30.7 % (32.0-36.0)
[2018-06-09] MEDS: Piperacil/Tazo 4.5 GM Premix 4.5 GM/100 ML BAG IV.SIG SCH (04:56)
[2018-06-09] MEDS: Chlorhexidine Gluconate 2% 1 Pack (2 Cloths) TOPICAL SCH (04:56)
[2018-06-09] MEDS: Sod Chloride 0.9% Inj 1,000 ML IV.CONT SCH ×3 (04:57→16:20)
[2018-06-09 06:45] LABS: Ovalocytes 1+; Platelet Morphology Normal (Normal)
--- NOTE | 2018-06-09 09:10 | P.PNIM ---
Subjective Interval history: 67 yo f admitted with pneumonia, hypoxic resp failure, sepsis and cellulitis, pt seen and evaluated, doing better, no worsening sob, no cp, no nv, been negro but not below 50s per nursing, digoxing and metoprolol still on hold Physical Exam Vital signs: Last Vital Signs Temp 98.4 F 06/09/18 04:00 Pulse 48 L 06/09/18 06:00 Resp 14 06/09/18 04:00 BP 118/51 L 06/09/18 04:00 Pulse Ox 99 06/09/18 07:10 Intake & Output 06/07/18 06/08/18 06/09/18 06/10/18 06:59 06:59 06:59 06:59 Intake Total 920 / 920 4735.0 / 4735.0 6035.0 / 6035.0 Output Total 450 / 450 1275 / 1275 1350 / 1350 Balance 470 / 470 3460.0 / 3460.0 4685.0 / 4685.0 Weight 94 kg 98 kg 101 kg aaox3 nad heart s1s2 reg negro lungs coarse breath sounds no wheeze, fair air movment abd obese soft nondt pos bs ext LLE w now large area of hot erythema anterior below knee, mild area lateral thigh erythema better, dependent edema thigh and buttocks, diminshed pulse in LLE unchanged. Urinary Catheter Management Indwelling Urethral Catheter: Cath placed during this visit: yes Urethral indwelling: No Insertion date: 06/07/18 Insertion time: 00:35 Results Labs CBC & Chem 7: 06/09/18 03:30 06/08/18 07:45 Labs: Microbiology 06/06/18 22:30 Blood - Peripheral Aerobic Blood Culture - Preliminary No growth in 2 days 06/06/18 22:30 Blood - Peripheral Anaerobic Blood Culture - Preliminary No growth in 2 days 06/06/18 22:35 Blood - Peripheral Aerobic Blood Culture - Preliminary No growth in 2 days 06/06/18 22:35 Blood - Peripheral Anaerobic Blood Culture - Preliminary No growth in 2 days Assessment and Plan Plan SEPSIS due to suspected pna and LLE CELLULITIS poa resolving HYPOXIC RESP FAILURE acute on chronic continue to wean oxygen as tolerated, pulm toilet, pulm tx add mucinex PNA - cont pulm tx, abx, sputum cx not avail, flu swab neg, bc neg COPD severe GOLD stage 3 per prior pft FEV1 30%, w acute exacerbation - s/p iv steroids, changed to ICS, tolerating AFIB chronic on eliquis stable BRADYCARDIA - second to meds, hold dig and metoprolol, will monitor on tele, hr rebounding, hx of afib,flutter in past, stable no indication for ppm at this time, resume bb as hr rebounds THROMBOCYTOPENIA w acute drop likely due to sepsis , but need to monitor closely while on eliquis, starting to improve CELLULITIS left thigh and lower ext - now more apparrent erythema developed on Left randle, prob bc i stopped her steroids, continue vancomycin, change zmax on for atyp pna to quinolone po adequate, blood cultures neg to date, due to severe pvd, cont iv abx for now. will give diuresis today for edema. HTN controlled MIGRAINES pain meds prn CHRONIC PAIN SYNDROME , spinal stensos chronic, PVD LLE chronic BED BOUND gait dysfunction chronic stable dvt prophylaxis - eliquis dispo - return to [facility] when stable, still ready for dc, continue iv abx for another day or two for cellulitis, wean oxygen to baseline 2-3 L today if tolerated. Progress Note: Quality VTE Deep Vein Thrombosis/Pulmonary Embolism Present on Admission: No
[2018-06-09] MEDS: Escitalopram 10 MG Tablet PO SCH (09:25)
[2018-06-09] MEDS: levoFLOXacin 750 MG Tablet PO SCH (09:26)
[2018-06-09] MEDS: Senna/Docusate Sodium 8.6/50 MG Tablet PO SCH ×2 (09:26→20:39)
[2018-06-09] MEDS: Metoprolol Tartrate 25 MG Tablet PO SCH ×2 (09:26→20:38)
--- NOTE | 2018-06-09 09:26 | XR ---
EXAM DATE: 06/09/2018 9:19 AM EST AGE/SEX: 67 years / Female INDICATIONS: Short of breath, fever, evaluate pneumonia CLINICAL DATA: This is the patient's initial encounter. Patient reports that signs and symptoms have been present for 4 - 6 days and indicates a pain score of 0/10. MEDICAL/SURGICAL HISTORY: Chronic obstructive pulmonary disease. Congestive heart failure. fev er None. COMPARISON: [facility] [place], CHEST 1V SINGLE AP, 06/06/2018. . FINDINGS: Moderate bibasilar parenchymal changes are evident worse on the left than the right. The heart is enlarged. There is no pleural effusion or pneumothorax. There is no significant congestive failure. CONCLUSION: Increasing airspace disease in the left base. Could be an early inflammatory process. Electronically signed by: Basim Mercado MD Board Certified Radiologist 06/09/2018 9:25 AM EST
[2018-06-09] MEDS: Tiotropium Bromide 18 MCG/ACT Inhaler INH SCH (09:27)
[2018-06-09] MEDS: Vancomycin Inj 1,750 MG in Sodium Chlor 0.9% Inj 500 ML IV.SIG SCH ×2 (12:23→22:19)
[2018-06-09] MEDS: guaiFENesin 600 MG ER Tablet PO SCH ×2 (12:23→20:38)
[2018-06-10] MEDS: Sod Chloride 0.9% Inj 1,000 ML IV.CONT SCH ×2 (01:06→09:13)
[2018-06-10] MEDS: Chlorhexidine Gluconate 2% 1 Pack (2 Cloths) TOPICAL SCH (03:36)
[2018-06-10] MEDS: Tiotropium Bromide 18 MCG/ACT Inhaler INH SCH (09:15)
[2018-06-10] MEDS: Metoprolol Tartrate 25 MG Tablet PO SCH (09:16)
[2018-06-10] MEDS: Escitalopram 10 MG Tablet PO SCH (09:16)
[2018-06-10] MEDS: Senna/Docusate Sodium 8.6/50 MG Tablet PO SCH (09:16)
[2018-06-10] MEDS: guaiFENesin 600 MG ER Tablet PO SCH (09:16)
[2018-06-10] MEDS: levoFLOXacin 750 MG Tablet PO SCH (10:40)
[2018-06-10] MEDS ORDERED: Pharmacy Ordered Lab Info OTHER ONE (10:45)
[2018-06-10] MEDS: Vancomycin Inj 1,750 MG in Sodium Chlor 0.9% Inj 500 ML IV.SIG SCH (11:20)
--- NOTE | 2018-06-10 12:15 | P.DS ---
DS: Providers Date of admission: 06/07/18 00:33 Primary care physician: Steff Milan DO Consults: 06/07/18 13:26 HUB Only Consult Order Routine [facility] 06/08/18 14:38 HUB Only Consult Order Routine [facility] 06/09/18 14:59 Consult to Vascular Surgery Routine Consulting Provider: Delvis Spence Conductor/Engineer:: Delvis Sepnce Reason for Consultation: pad LLE w recurrent cellulitis Notified:: Physician Spoke with:: Date Notified:: 06/09/18 Time Notified:: 15:09 Ordering Provider: DAISY Brief History from admission: 67-year-old female with a past medical history significant for COPD, CHF, atrial fibrillation anticoagulated on Eliquis, hypertension, depression/anxiety , migraines and REI presents to the emergency department for the evaluation of hypoxia and fever. The patient is a resident at [facility] and during routine vital signs they found her to have a respiratory rate of 32, temperature of 102 and oxygen saturations in the 60s-70s. At the time of our interview, the patient declares that she "has a headache." She does not answer any of my questions about shortness of breath or chest pain. No signs on arrival to the emergency department: Temperature 102.9 rectal, pulse 128, respirations 22, BP 175/80, pulse ox 90% on 6 L nonrebreather. DS: Summary Mrs. Estrada is a 67-year-old female. She was admitted secondary to sepsis with suspected pneumonia and left lower extremity cellulitis. On antibiotics this has been improving. She has been on Levaquin and vancomycin. She had exacerbation of her baseline chronic respiratory failure with acute hypoxia. Currently she is back to baseline with her oxygen use. Acute COPD exacerbation has also resolved. Thrombocytopenia was present likely reactive, currently this is showing signs of improvement. Thrombocytopenia is not at a critical level. Cellulitis is showing improvement on antibiotics. Patient's medically stable and cleared for transition back to [facility] facility. She will continue treatments with clindamycin and Levaquin. Probiotics given also. Time Spent with Patient Total time spent providing and/or coordinating discharge services: Quality: VTE Deep Vein Thrombosis/Pulmonary Embolism Present on Admission: No Results Labs on day of discharge: Labs from last 24 hours 06/10/18 11:00 Vancomycin Trough 19.2 H Preliminary micro results at discharge 06/06/18 22:30 Aerobic Blood Culture - Preliminary Blood - Peripheral No growth in 4 days Anaerobic Blood Culture - Preliminary No growth in 4 days 06/06/18 22:35 Aerobic Blood Culture - Preliminary Blood - Peripheral No growth in 4 days Anaerobic Blood Culture - Preliminary No growth in 4 days Impressions ITS Impressions Hip X-Ray 06/06/18 22:50 CONCLUSION: Left total hip prosthesis in good position. Chest X-Ray 06/09/18 00:00 CONCLUSION: Increasing airspace disease in the left base. Could be an early inflammatory process. Discharge Plan Discharge Disposition Patient Disposition: Discharge to SNF Discharge Condition Condition: Stable Discharge Order Discharge Orders: Discharge Order (Routine); Ordered 06/10/18 Ordered By: Loco Dao Discharge Details Anticipated Discharge Date: 06/10/18 Physicians Team Primary Care Provider: Steff Milan Attending Provider: Loco Dao Other Providers: Brooks Smith,Yen ; Delvis Spence Rxs /Orders / Referrals /Forms Prescriptions: New levofloxacin 750 mg Tablet 750 mg PO DAILY@1100 Qty: 5 RF: 0 Lactobacillus acidophilus Capsule 500 mmu cells PO TID Qty: 30 RF: 0 clindamycin HCl 300 mg capsule 600 mg PO Q8H 7 Days Qty: 42 RF: 0 Continue melatonin 3 mg Tablet 6 mg PO HS PRN (Reason: Insomnia) RF: 0 clotrimazole-betamethasone [Lotrisone] 1-0.05 % Cream 1 applic TOPICAL BID RF: 0 digoxin 125 mcg Tablet 0.125 mg PO DAILY RF: 0 escitalopram oxalate 10 mg Tablet 10 mg PO DAILY RF: 0 metoprolol tartrate 25 mg Tablet 25 mg PO BID RF: 0 apixaban [Eliquis] 5 mg Tablet 5 mg PO BID RF: 0 albuterol sulfate [Ventolin HFA] 90 mcg/actuation Hfa Aerosol Inhaler 1 puff INHALATION Q4-6H PRN (Reason: Wheezing) RF: 0 oavhidgsjq-fjhwwjgifjoaw-jnoo 50-300-40 mg Capsule 1 cap PO Q4H PRN (Reason: Wheezing) RF: 0 Referrals: Steff Milan DO [Primary Care Provider] - See Instructions Discharge Interventions Interventions: Discharge Planning - Case Management Last Done: 06/07/18 13:26 Status ED Status: Left Department
--- NOTE | 2018-06-10 14:11 | P.PNVS ---
Subjective Subjective/Hospital Course: 06/10/2018 Patient who presents with pneumonia and has cellulitis of the foot and lower leg Condition at the current time is getting much better and patient is being discharged. No further consultation will be necessary Discussed with Dr. Dao. Thanks J Objective Vital Signs / I&O: Vital Signs 06/09/18 16:00 06/09/18 18:00 06/09/18 20:00 Temperature 97.6 F 97.2 F L Pulse Rate 57 L 59 L 64 Respiratory Rate 14 16 Blood Pressure 105/51 L 108/58 L Pulse Oximetry 99 93 L 06/09/18 20:44 06/10/18 00:00 06/10/18 08:00 Temperature 98.1 F 97.8 F Pulse Rate 80 92 H Respiratory Rate 18 16 Blood Pressure 130/66 143/63 H Pulse Oximetry 95 92 L 94 L 06/10/18 09:11 06/10/18 12:00 Temperature 98.0 F Pulse Rate 98 H Respiratory Rate 20 Blood Pressure 162/90 H Pulse Oximetry 96 96 Intake & Output 06/09/18 06/10/18 06/10/18 18:59 06:59 18:59 Intake Total 2117.5 / 2117.5 997.5 / 997.5 517.5 / 517.5 Output Total 1600 / 1600 1150 / 1150 Balance 517.5 / 517.5 -152.5 / -152.5 517.5 / 517.5 Weight 105.8 kg Intake: IV 1517.5 / 1517.5 517.5 / 517.5 517.5 / 517.5 NS Inj 1,000 ML @ 100 mls/hr IV 1000 / 1000 .CONT .Q10H DEEPA Rx#:[id number] Vancomycin Inj 1,750 MG In NS 517.5 / 517.5 517.5 / 517.5 517.5 / 517.5 Inj 500 ML @ 250 mls/hr IV.SIG Q12H DEEPA Rx#:[id number] Oral 600 / 600 480 / 480 Output: Urine 1600 / 1600 1150 / 1150 Other: # Incontinent Voids 3 Date of Last Bowel Movement 06/09/18 06/09/18 06/10/18 # Bowel Movements 1 2 Laboratory Results - last 24 hr 06/10/18 11:00 Vancomycin Trough 19.2 H Microbiology 06/06/18 22:30 Aerobic Blood Culture - Preliminary Blood - Peripheral No growth in 4 days Anaerobic Blood Culture - Preliminary No growth in 4 days 06/06/18 22:35 Aerobic Blood Culture - Preliminary Blood - Peripheral No growth in 4 days Anaerobic Blood Culture - Preliminary No growth in 4 days Impressions Chest X-Ray 06/09/18 00:00 CONCLUSION: Increasing airspace disease in the left base. Could be an early inflammatory process.
[2018-06-10 16:44] VITALS: BP 134/65; PULSE 84; RESP 18; TEMP 98.4; O2SAT 94
== END 2018-06-10 17:55 | DRG 871 ==
LOC: NEPC 22:14 → NEDA 06-07 00:33 → HIMC 06-07 04:50 → N07 06-09 21:51
PROVIDERS: ADMIT Hospitalist; ATTEND Hospitalist
CPT/HCPCS: 36600; 71010; 71045; 73502; 80048; 80053; 80202; 81001; 82805; 82948; 82962; 83605; 83690; 83735; 84484; 85025; 85610; 85730; 87040; 87275; 87276; 87641; 87804; 90774; 90784; 93005; 94640; 94665; 96374; 97162; 99285; C8952; J0131; J0456; J1940; J2543; J2920; J2930; J3370; J7030; J7040; J7050